=== PATIENT | male | born 1945 | race Caucasian/White ===

== ENCOUNTER 2017-05-23 13:00 | Inpatient (IN) ==
[2017-05-23] MEDS ORDERED: ALBUTEROL/IPRATROPIUM 3 ML NEB RESP TX STA (13:22)
[2017-05-23] MEDS ORDERED: methylPREDNISolone SOD SUC 125 MG/2 ML VIAL IV STA (13:22)
[2017-05-23] MEDS ORDERED: FUROSEMIDE 100 MG/10 ML VIAL IV STA (13:22)
--- NOTE | 2017-05-23 13:27 | EKG Report ---
Stationary ECG Study [facility] ER Test Date: 05/23/2017 1:20:06 PM Pat Name: JENN KEITH Department: Room: Gender: M Complaint Operator: : 1945 Requested by: Baltazar Cooper Order Number: [id number] Reading MD: JANETTE ESTRADA Intervals Clifford Rate: 101 P: 83 AL: 226 QRS: -59 QRSD: 102 T: 69 QT: 335 QTc: 393 Interpretive Statements SINUS TACHYCARDIA WITH PROLONGED AL INTERVAL WITH FREQUENT VENTRICULAR PREMATURE COMPLEXES WITH OCCASIONAL SUPRAVENTRICULAR PRE MARKED LEFT AXIS DEVIATION INCOMPLETE RIGHT BUNDLE BRANCH BLOCK POSSIBLE ANTERIOR MYOCARDIAL INFARCTION, PROBABLY OLD Electronically Signed On 05-24-17 09:03:24 CDT by JANETTE ESTRADA [email or web address]
--- NOTE | 2017-05-23 13:39 | Emergency Department Note ---
Arrival - Arrival Chief Complaint: Shortness of Breath Stated Complaint: sob,dizzy,cp ED Nursing Triage Note: C/O Having SOB that got worse around 0730 this am , states he recently got out of the hospital last week for heart issues/lung issues. Had stent placement in December 31., states he has been having sqeezing chest pain that started today,+ dizziness to the point that he can stand up., Mode of Arrival: Wheelchair Limitations: No Limitations Source: Patient, Family Time Seen by Provider: 05/23/17 13:33 - History of Present Illness HPI Narrative: This 72-year-old white male oxygen dependent gentleman presents 24 hours post discharge from [facility] in [facility] where he had been hospitalized the last 2 weeks for what the family describes as combined cardiac and pulmonary problems. It would seem that his physicians there were in a quest to determine what was causing his progressive shortness of breath. He does have a history of significant COPD with complicating bronchiectasis and oxygen dependency as well as a history of UT and congestive heart failure. Since discharge, the states he has been no better than the day he went in with persistent dyspnea on exertion associated with intermittent squeezing type chest pain. Notable new problems are what seems to be orthostatic hypotension which causes him dizziness when ever he gets up as well as wide variations in heart rate which she states have been anywhere from 42 to 100 this morning. Currently the patient on oxygen and at rest has no complaints of chest pain or shortness of breath and appears medically stable. Onset (ago): week(s) (Patient presents several weeks post progression of symptoms.) Allergies/Adverse Reactions: Allergies Allergy/AdvReac Type Severity Reaction Status Date / Time No Known Allergies Allergy Unverified 05/23/17 13:09 Home Medications: Home Medications Medication Instructions Recorded Confirmed Type Albuterol/Ipratropium Neb [Duoneb] 3 ml RESP TX RT BID 05/23/17 05/23/17 History Apixaban [Eliquis] 2.5 mg PO BID 05/23/17 05/23/17 History Atorvastatin [Lipitor] 40 mg PO BEDTIME 05/23/17 05/23/17 History Clopidogrel [Plavix] 75 mg PO QAM 05/23/17 05/23/17 History Diltiazem Cd Cap [Cardizem CD] 120 mg PO BID 05/23/17 05/23/17 History Escitalopram [Lexapro] 20 mg PO DAILY 05/23/17 05/23/17 History Fluticasone/Vilanterol [Breo 1 puff INH QAM 05/23/17 05/23/17 History Ellipta 100-25 Mcg INH] Furosemide Tab [Lasix Tab] 20 mg PO BID DIURETIC 05/23/17 05/23/17 History Insulin Aspart [NovoLOG] 14 unit SUBCUT AC 05/23/17 05/23/17 History Insulin Detemir [Levemir] 34 unit SUBCUT QAM 05/23/17 05/23/17 History Losartan [Cozaar] 12.5 mg PO QAM 05/23/17 05/23/17 History Potassium Chloride Cap/Tab [K Dur] 10 meq PO QAM 05/23/17 05/23/17 History predniSONE TAB [PredniSONE] 30 mg PO QAM 05/23/17 05/23/17 History Review of System - Review of System 12 point system: reviewed and no additional remarkable complaints except as stated - Review of System Constitutional: Present: as per HPI Respiratory: Present: as per HPI Cardiovascular: Present: as per HPI Neurological: Present: as per HPI Medical,Surgical,& Family Hx - Medical History Cardio: History of: CHF, Hypertension, UT, Cardiovascular Problems - Surgical History Cardiac Surgeries: Sugical HX of: Cardiac Catheterization - Social History Smoking Status: Never smoker Frequency of Alcohol Use: None Type of Drug Use: None Exam Physical Examination: GENERAL: Well developed, well nourished elderly white in no acute distress. HEENT: Normocephalic. No trauma. Moist mucous membranes. EOMI. PERRLA. ENT NML NECK: Supple. No adenopathy. CARDIAC: Regular. No murmurs. Heart rate 100 CHEST: Clear to auscultation. No respiratory distress. O2 sat 95% ABDOMEN: Soft. Nontender. Active bowel sounds. EXTREMITIES: No trauma. Normal ROM. No pedal edema. SKIN: No diaphoresis. No rash. NEURO: Alert. Neuro intact no focal deficits. Vital Signs: Vital Signs Temperature 98.8 F 05/23/17 13:36 Pulse Rate 70 05/23/17 13:46 Respiratory Rate 25 H 05/23/17 13:46 Blood Pressure 132/93 05/23/17 13:46 O2 Sat by Pulse Oximetry 100 05/23/17 13:46 Course - Reevaluation(s) Reevaluation #1: Discussed with family the need for hospitalization with multiple issues including new onset pneumonia - Consultations Consultation #1: Discussed with hospitalist service will admit for further evaluation treatment. Results - Labs CBC & BMP: 05/23/17 13:31 05/23/17 13:31 Labs: I reviewed the laboratory noted the abnormalities including a troponin of 0.065 , BUN 66, creatinine 1.5. - Impressions EKG sinus tachycardia at 100 with prolonged NJ interval and incomplete right bundle branch block with occasional multifocal PVCs. Old anterior UT versus poor R-wave progression anteriorly. Nonspecific ST changes with no acute injury pattern noted. - Diagnostic Findings Procedure: Chest x-ray: image reviewed by me, report reviewed by me (Left lower lobe infiltrate/effusion) Disposition Clinical Impression: Left lower lobe pneumonia, Congestive heart failure, Abnormal cardiac enzymes, Bronchiectasis, COPD O2 dependent, Coronary artery disease Case discussed with: patient, patient's family Disposition: Still a Patient Condition: Guarded Time of Disposition: 14:27
[2017-05-23 13:41] LABS: Basophils # 0.1 10*3/uL (0.0-0.2); Basophils % 0.5 % (0.0-0.8); Eosinophils % 0.1 % (0.00-10.9); Hematocrit 42.6 VOL% (42.0-52.0); Hemoglobin 14.4 GM/DL (14.0-18.0); Immature Granulocytes % 12.6 %; Immature Granulocytes Absolute 1.42 #; Lymphocytes # 0.9 10*3/uL (1.4-4.0); Lymphocytes % 8.1 % (21.2-54.2); Mean Corpuscular HGB Conc 33.8 GM/DL (32-36); Mean Corpuscular Hemoglobin 31 PG (27-34); Mean Corpuscular Volume 90.6 FL (87-102); Monocytes % 8.9 % (1.7-12.7); NRBC # 0.12 10*3/uL; Neutrophils # 7.9 10*3/uL (1.4-7.4); Neutrophils % 69.8 % (38.7-73.9); Platelet Count 121 T/CUMM (130-400); Red Cell Distribution Width 17.2 % (9.3-17.3); White Blood Count 11.3 T/CUMM (4-12)
[2017-05-23 14:07] LABS: Alanine Aminotransferase 63 U/L (16-61); Albumin 3.6 G/DL (3.4-5.0); Alkaline Phosphatase 145 U/L (45-117); Aspartate Amino Transferase 40 U/L (0-37); Blood Urea Nitrogen 66 MG/DL (7-18); Calcium 8.9 MG/DL (8.5-10.1); Glucose 217 MG/DL (74-106); Osmolality,Calculated 304.4 MOS/KG (273-304); Potassium 3.8 MMOL/L (3.5-5.1); Sodium 140 MMOL/L (136-145); Total Protein 6.6 G/DL (6.4-8.3)
[2017-05-23 14:08] LABS: Troponin I Only 0.065 NG/ML (0.00-0.045)
--- NOTE | 2017-05-23 14:10 | XRay Report ---
History: Shortness of breath Date: 05/23/2017 Study: Chest x-ray AP portable Comparison exam: October 18, 2014 There is continued cardiomegaly. The midsternal contours are similar. There is some atelectatic change on the left with slight shift of the mediastinum to the left. There is some left basilar infiltrate compatible with pneumonia. There is mild platelike subsegmental atelectasis in the right lung base. Osseous structures are unchanged. Impression: Parenchymal consolidation in the left lung base which presumably represents pneumonia. Volume loss in the left lung. Radiographic follow-up to resolution is advised. PROCEDURE INTERPRETED AT [facility] DEPARTMENT OF RADIOLOGY Final Report Signed by: Dr. Pamela León
[2017-05-23] MEDS ORDERED: LEVOFLOXACIN INJ 750 MG in PREMIX 1 EACH IV STA (14:19)
[2017-05-23] MEDS ORDERED: LEVOFLOXACIN INJ 150 ML IV ONE (14:23)
[2017-05-23] MEDS ORDERED: FUROSEMIDE 100 MG/10 ML VIAL ONE (14:24)
[2017-05-23] MEDS ORDERED: methylPREDNISolone SOD SUC 125 MG/2 ML VIAL ONE (14:24)
[2017-05-23] MEDS ORDERED: MORPHINE 2 MG/1 ML SYRINGE IV PRN (15:08)
[2017-05-23] MEDS ORDERED: ONDANSETRON 4 MG/2 ML VIAL IV PRN (15:08)
[2017-05-23] MEDS ORDERED: ACETAMINOPHEN 325 MG TABLET PO PRN ×2 (15:08)
[2017-05-23] MEDS ORDERED: diphenhydrAMINE CAP 25 MG CAPSULE PO PRN (15:08)
[2017-05-23] MEDS ORDERED: guaiFENesin/DM ER 600-30 MG TABLET PO PRN (15:08)
[2017-05-23] MEDS ORDERED: DOCUSATE SODIUM 100 MG CAPSULE PO PRN (15:08)
[2017-05-23] MEDS ORDERED: BENZONATATE 100 MG CAPSULE PO PRN (15:17)
[2017-05-23] MEDS ORDERED: ALBUTEROL 2.5 MG/3 ML NEB RESP TX PRN (15:17)
[2017-05-23] MEDS ORDERED: DEXTROSE 50% 25 GM/50 ML SYRINGE IV PRN (15:24)
[2017-05-23] MEDS ORDERED: GLUCAGON 1 MG VIAL IM PRN (15:24)
--- NOTE | 2017-05-23 15:32 | Hospitalist History & Physical ---
Assessment and Plan - Time spent with patient Time spent with patient: Greater than 30 minutes (1) Steroid-induced diabetes mellitus Status: Acute Assessment and plan: Mr. Davison is a pleasant 72-year-old white male with history of CAD status post stents, A. fib on anticoagulation, hypertension, steroid-induced diabetes, hyperlipidemia, history of BOOP, history of recent pneumonia presenting to the ED with progressive shortness of breath and squeezing type substernal chest pain. Dr. Hernandez we will see and examine patient and further recommendations to follow. Chest pain/shortness of breath/elevated troponin--patient will be admitted on telemetry with serial EKGs and troponins. His troponins are elevated so these will be trended. Consult cardiology for evaluation. Patient had stents placed in December in [place]. Patient is on Eliquis and Plavix. Patient also has labile blood pressure and heart rate associated with his squeezing chest pain. Patient is being left n.p.o. until evaluated by cardiology. Left lower lobe pneumonia/shortness of breath--patient has known history of BOOP with frequent lung infections and on chronic steroids. His home dose is 30 mg p.o. daily. Patient has been started on Rocephin and azithromycin. Consult pulmonary for assistance. Patient was given 125 mg IV of methylprednisolone in the ED. He will also receive breathing treatments as well. Jaundice--patient is complaining of yellow eyes for the last week and dark urine. His LFTs are mildly elevated with a normal T bili. Will hold Lipitor for now. Will discuss with Dr. Hernandez if GI consult is needed. Steroid-induced diabetes--patient was on metformin and insulin at home. We will hold these for now and put on sliding scale insulin. Chronic anticoagulation--patient is on Eliquis and Plavix for A. fib and CAD. We will hold these for now and leave up to cardiology if they need to be restarted. Orthostatic hypotension--patient states he has been getting dizzy and lightheaded when he moves from lying to sitting and standing. Will check orthostatics twice daily. He was given a bolus in the ED of fluid and will continue maintenance fluids. Current Visit: Yes (2) Chest pain Status: Acute Current Visit: Yes (3) Shortness of breath on exertion Status: Acute Current Visit: Yes (4) CAD status post stents Status: Acute Current Visit: Yes (5) Hypertension Status: Acute Current Visit: Yes (6) A-fib Status: Acute Current Visit: Yes (7) Chronic anticoagulation Status: Acute Current Visit: Yes (8) Jaundice Status: Acute Current Visit: Yes (9) Orthostatic hypotension Status: Acute Current Visit: Yes (10) Elevated troponin Status: Acute Current Visit: Yes History of Present Illness Chief complaint: Chest tightness, shortness of breath History of present illness: Mr. Davison is a 72 year old white male with history of BOOP, A. fib on Eliquis and Plavix, CAD status post stents in December, steroid-induced diabetes, hyperlipidemia, congestive heart failure, and recent pneumonia presenting to the ED with 1 month progressive shortness of breath and chest tightness. Patient states he was diagnosed with BOOP approximately 2 years ago and has been on chronic steroids since then and gets chronic lung infections. He states he has had several bouts of pneumonia with the last one being hospitalized in February and March down in [place]. Patient and both state that the chief wheelage clerk blamed the lungs and the head of business development blamed the heart. They were discharged home and patient was doing well until steroids were being tapered. He states for the last month he has had a squeezing type substernal chest pain with increasing shortness of breath with activity. He states his heart rate has been going up and down between 40 and 120. Patient states he feels the squeezing chest pain when it is on the low side. Patient states with minimal activity his O2 sats will drop in the 80s and he will become severely short of breath. He says after he sits and rests for a while it does return to normal. He is also complaining of increasing fatigue, dark urine, and yellow eyes. Upon exam patient is flushed and has conversational dyspnea, labile heart rate and blood pressure. His CBC is unremarkable, creatinine elevated at 1.5, blood sugars 217, AST/ALT mildly elevated with normal bilirubin, elevated alkaline phosphatase at 145. Patient's CK-MB is elevated at 4.9 with troponin 0 0.065. BNP mildly elevated at 177. Patient's chest x-ray shows consolidation in the left lung base representing pneumonia. He does have crackles to auscultation in left lower lobe. His EKG shows sinus tachycardia with prolonged UT interval with frequent ventricular premature complexes occasional supraventricular premature complexes, marked left axis deviation, incomplete right bundle branch block, possible anterior OK probably old. After discussion with Dr. Funes the ED physician and Dr. Hernandez the admitting hospitalist, it was agreed patient be admitted for further evaluation and treatment. Patient's medicines have been reconciled and he is a full code. Home Medications Medication Instructions Recorded Confirmed Type Albuterol/Ipratropium Neb [Duoneb] 3 ml RESP TX RT BID 05/23/17 05/23/17 History Apixaban [Eliquis] 2.5 mg PO BID 05/23/17 05/23/17 History Atorvastatin [Lipitor] 40 mg PO BEDTIME 05/23/17 05/23/17 History Clopidogrel [Plavix] 75 mg PO QAM 05/23/17 05/23/17 History Diltiazem Cd Cap [Cardizem CD] 120 mg PO BID 05/23/17 05/23/17 History Escitalopram [Lexapro] 20 mg PO DAILY 05/23/17 05/23/17 History Fluticasone/Vilanterol [Breo 1 puff INH QAM 05/23/17 05/23/17 History Ellipta 100-25 Mcg INH] Furosemide Tab [Lasix Tab] 20 mg PO BID DIURETIC 05/23/17 05/23/17 History Insulin Aspart [NovoLOG] 14 unit SUBCUT AC 05/23/17 05/23/17 History Insulin Detemir [Levemir] 34 unit SUBCUT QAM 05/23/17 05/23/17 History Losartan [Cozaar] 12.5 mg PO QAM 05/23/17 05/23/17 History Potassium Chloride Cap/Tab [K Dur] 10 meq PO QAM 05/23/17 05/23/17 History predniSONE TAB [PredniSONE] 30 mg PO QAM 05/23/17 05/23/17 History Allergies Allergy/AdvReac Type Severity Reaction Status Date / Time No Known Allergies Allergy Unverified 05/23/17 13:09 Medical,Surgical,& Family Hx - Medical History Cardio: History of: CHF, Hypertension, OK, Cardiovascular Problems Endocrine: History of: Diabetes Mellitus (NIDDM) Musculoskeletal: History of: Degenerative Disk Disease - Surgical History Cardiac Surgeries: Sugical HX of: Cardiac Catheterization Orthopedic Surgeries: Surgical HX of;: Orthopedic Surgery - Family History Family History: Reports;: Family Heart Disease - Social History Smoking Status: Never smoker Frequency of Alcohol Use: None Type of Drug Use: None Marital Status: Lives With:: Spouse Functional capacity: independent ambulation 12 point system: reviewed and no additional remarkable complaints except as stated Exam - Constitutional Vitals: Period Temp Pulse Resp BP Sys/Hudd[place]eston Pulse Ox Last 24 Hr 98.8 F-98.8 F 70-71 18-25 122-132/82-93 92-100 Exam: Constitutional System: No distress. No tremulousness. Head: Normocephalic, atraumatic. Flushed appearance Ears, Nose and Throat System: No evidence of Otitis or Mastoiditis. No epistaxis or discharge Eyes System: Pupils equal, round, and reactive. Extraocular muscles intact. Neck: Supple, without adenopathy, No jugular venous distention. No thyromegaly, neck mass, or prior surgery apparent. Respiratory System: Chest crackles in the left lung base to auscultation. Cardiovascular System: Heart with irregularly irregular rate and rhythm. No murmur. GI System: Abdomen soft, nontender. Normo active bowel sounds present. Musculoskeletal System: limbs with no pedal edema. Full distal pulses. Neurological System: No discernable sensory deficit. No aphasia Psychiatric System: Conversation is rational Results - Labs CBC & BMP: 05/23/17 13:31 05/23/17 13:31 Lab Results: I have reviewed the past 24 hour labs - Impressions EKG is reading sinus tachycardia with prolonged UT interval with frequent ventricular premature complexes with occasional supraventricular premature complexes, marked left axis deviation, incomplete right bundle joanie block, possible anterior OK probably old Quality Measures - VTE Contraindication to Pharmacological VTE Prophylaxis: Already on Theraputic Agent , No Prophylaxis Needed
[2017-05-23] MEDS ORDERED: MAGNESIUM SULF RIDER 2 GM in PREMIX 1 EACH IV PRN (15:37)
[2017-05-23] MEDS ORDERED: POTASSIUM CHLORIDE 20 MEQ TABLET PO PRN (15:37)
[2017-05-23 15:43] LABS: Risk Ratio 1.47; Thyroid Stimulating Hormone 1.27 uIU/ml (0.358-3.74)
--- NOTE | 2017-05-23 16:32 | Cardiology Consult Note ---
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 Current Visit: Yes (3) CAD status post stents Problem details: Xience 3x38mm proximal LAD 12/31/2016 [place] Status: Chronic Current Visit: Yes (4) Elevated troponin Status: Acute Current Visit: Yes (5) A-fib Status: Chronic Current Visit: Yes Qualifiers: Atrial fibrillation type: paroxysmal Qualified Code(s): I48.0 - Paroxysmal atrial fibrillation (6) Chronic anticoagulation Status: Chronic Current Visit: Yes (7) PVC (premature ventricular contraction) Status: Acute Current Visit: Yes (8) PAC (premature atrial contraction) Status: Acute Current Visit: Yes (9) Steroid-induced diabetes mellitus Status: Chronic Current Visit: Yes History of Present Illness - Data of Consult Patient: new to practice Consult date: 05/23/17 Requesting Physician: Jessica Day - Consult Narrative Reason for consult: sob History of present illness: The patient is evaluated in the emergency room 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 Davison is a 72 year old male with a history of Boop and bronchiectasis, coronary artery disease, atrial fibrillation, steroid-induced diabetes mellitus. He presents to the emergency room for treatment of his shortness of breath. He was diagnosed with beep approximately 2 years ago and there has been some difficulty weaning his steroids. He has had frequent recurrence of flareups when his steroids are weaned. He does not chronically use oxygen. From a cardiac standpoint, he underwent PCI to his proximal LAD with placement of a Xience 3 x 38 mm stent, and the tells me this was complicated by intraoperative infarction with "stent collapsing" and subsequent salvage. He has been maintained on Plavix and Eliquis for his coronary disease and atrial fibrillation. More recently he was hospitalized several times for what sounds like pneumonia and flareup of his BOOP. He has been on a very slow taper of his prednisone at this point. He has had worsening dyspnea on exertion for the past 1-2 weeks. Things progressed such that even walking across the house he became hypoxic with sats in the 80s, although this recovered when he was still. It became so disabling that he came to the emergency room for further evaluation and treatment. He does have a mild cough that is occasionally productive but this does not appear to be a predominant symptom. He is not having chest pain per se. When he does retain fluid it tends to be intra-abdominal, but this has not been a recent problem for him. Blood sugars have been uncontrolled, and the 5- 600s. He occasionally gets transient vision changes with this described as blurry vision. He has been less active than usual. He denies any complications from the anticoagulant and antiplatelet therapy other than easy bruising and bleeding. He denies any melena, bright red blood per rectum. He has occasional arthralgias. Impression and plan: 1. Shortness of breath-this appears to be poly-factorial. Undoubtedly his underlying pulmonary condition is contributing, and this could represent progression of his disease. On exam and by laboratory data he does not appear to be volume overloaded. While an anginal equivalent could be contributing to symptoms of shortness of breath, it should not be giving him hypoxia per se. 2. BOOP-chronic, possibly exacerbated. Defer to hospitalist and pulmonary medicine. 3. Coronary artery disease-he does not have obvious acute changes on his EKG. Certainly the dyspnea could be an anginal equivalent. He has mildly abnormal cardiac biomarkers. It is difficult to know whether or not this is really an acute coronary syndrome as it can be near impossible to tease out the symptoms between pulmonary and cardiac pathology. We are going to cycle his cardiac biomarkers and to check an echocardiogram. Further plan a decision will depend on his clinical evolution and the pattern of his troponins. 4. Atrial fibrillation-presumably this is paroxysmal because he is currently in sinus rhythm with frequent PACs and PVCs. He is anticoagulated and rate controlled. CC: Jeramie Hernandez MD - Home Medications and Allergies Home Medications: Home Medications Medication Instructions Recorded Confirmed Type Albuterol/Ipratropium Neb [Duoneb] 3 ml RESP TX RT BID 05/23/17 05/23/17 History Apixaban [Eliquis] 2.5 mg PO BID 05/23/17 05/23/17 History Atorvastatin [Lipitor] 40 mg PO BEDTIME 05/23/17 05/23/17 History Clopidogrel [Plavix] 75 mg PO QAM 05/23/17 05/23/17 History Diltiazem Cd Cap [Cardizem CD] 120 mg PO BID 05/23/17 05/23/17 History Escitalopram [Lexapro] 20 mg PO DAILY 05/23/17 05/23/17 History Fluticasone/Vilanterol [Breo 1 puff INH QAM 05/23/17 05/23/17 History Ellipta 100-25 Mcg INH] Furosemide Tab [Lasix Tab] 20 mg PO BID DIURETIC 05/23/17 05/23/17 History Insulin Aspart [NovoLOG] 14 unit SUBCUT AC 05/23/17 05/23/17 History Insulin Detemir [Levemir] 34 unit SUBCUT QAM 05/23/17 05/23/17 History Losartan [Cozaar] 12.5 mg PO QAM 05/23/17 05/23/17 History Potassium Chloride Cap/Tab [K Dur] 10 meq PO QAM 05/23/17 05/23/17 History predniSONE TAB [PredniSONE] 30 mg PO QAM 05/23/17 05/23/17 History Allergies/Adverse Reactions: Allergies Allergy/AdvReac Type Severity Reaction Status Date / Time No Known Allergies Allergy Unverified 05/23/17 13:09 12 point system: reviewed and no additional remarkable complaints except as stated Medical,Surgical,& Family Hx - Medical History Cardio: History of: CHF, Hypertension, [place], Cardiovascular Problems Endocrine: History of: Diabetes Mellitus (NIDDM) Musculoskeletal: History of: Degenerative Disk Disease - Surgical History Cardiac Surgeries: Sugical HX of: Cardiac Catheterization Orthopedic Surgeries: Surgical HX of;: Orthopedic Surgery - Family History Family History: Reports;: Family Heart Disease - Social History Smoking Status: Never smoker Frequency of Alcohol Use: None Type of Drug Use: None Marital Status: Lives With:: Spouse Functional capacity: independent ambulation Physical Examination Vital Signs Temp Pulse Resp BP Pulse Ox 98.8 F 71 18 122/82 92 L 05/23/17 13:04 05/23/17 13:04 05/23/17 13:04 05/23/17 13:04 05/23/17 13:04 Exam: General appearance: normal weight, mild tachypnea but no acute distress - Head Head exam: Present: normal inspection, normocephalic, atraumatic. Absent: hematoma, laceration - Eye Eye exam: Present: EOMI, muddy sclera, arcus senilis. Absent: conjunctival injection, nystagmus, periorbital swelling, laceration to eyelids Pupils: Present: PERRL. Absent: constricted, dilated, fixed, irregular, unequal - ENT ENT exam: Present: normal exam, normal external ear exam - Neck Neck exam: Present: normal inspection. Absent: lymphadenopathy, meningismus, tenderness, thyromegaly - Respiratory Respiratory exam: Present: Fine crackles bilaterally left greater than right. Absent: accessory muscle use, chest wall tenderness - Cardiovascular Cardiovascular exam: Present: Somewhat irregularly irregular rate and rhythm. Absent: carotid bruit, gallop, JVD, rubs - GI/Abdominal GI/Abdominal exam: Present: normal bowel sounds, soft. Absent: distended, firm , guarding, hernia, mass, tenderness, rebound. - Extremities Exam Extremities exam: Present: normal inspection, normal capillary refill. Absent: calf tenderness, edema - Back Exam Back exam: Present: normal inspection. Absent: muscle spasm, vertebral tenderness - Neurological Exam Neurological exam: Present: alert, oriented X3, grossly intact without resting or intention tremor - Psychiatric Psychiatric exam: Present: normal affect, normal mood - Skin Skin exam: Present: Ecchymoses throughout his limbs, neck and torso. warm, dry , intact. Absent: cyanosis, diaphoretic, rash, urticaria Result/EKG - Labs CBC & BMP: 05/23/17 13:31 05/23/17 13:31 Lab Results: I have reviewed the past 24 hour labs Labs: Laboratory Results - last 24 hr 05/23/17 05/23/17 05/23/17 13:31 13:31 13:31 WBC 11.3 RBC 4.70 Hgb 14.4 Hct 42.6 MCV 90.6 MCH 31 MCHC 33.8 RDW 17.2 Plt Count 121 L MPV 10.0 Neut % (Auto) 69.8 Lymph % (Auto) 8.1 L Smyth % (Auto) 8.9 Eos % (Auto) 0.1 Baso % (Auto) 0.5 Neut # (Auto) 7.9 H Lymph # (Auto) 0.9 L Smyth # (Auto) 1.0 H Eos # (Auto) 0.0 Baso # (Auto) 0.1 Immature Gran % 12.6 Nucleated RBC % 1.1 Immature Gran # 1.42 Nucleated RBCs # 0.12 Immature Plt Fraction 0.0 Circ Anticoag PTT 25.7 Sodium 140 Potassium 3.8 Chloride 104 Carbon Dioxide 29 Anion Gap 10.8 BUN 66 H Creatinine 1.50 H GFR Calculation 49 BUN/Creatinine Ratio 44.00 H Glucose 217 H Hemoglobin A1c Calculated Osmolality 304.4 H Lactic Acid Calcium 8.9 Total Bilirubin 0.90 AST 40 H ALT 63 H Alkaline Phosphatase 145 H Total Creatine Kinase 58 CK-MB (CK-2) 4.9 H Troponin I 0.065 H B-Natriuretic Peptide Total Protein 6.6 Albumin 3.6 Globulin 3.0 Albumin/Globulin Ratio 1.2 Triglycerides Cholesterol LDL Cholesterol VLDL Cholesterol HDL Cholesterol Heart Disease Risk Ratio [facility] 3rd Generation 05/23/17 05/23/17 05/23/17 13:31 13:31 13:31 WBC RBC Hgb Hct MCV MCH MCHC RDW Plt Count MPV Neut % (Auto) Lymph % (Auto) Smyth % (Auto) Eos % (Auto) Baso % (Auto) Neut # (Auto) Lymph # (Auto) Smyth # (Auto) Eos # (Auto) Baso # (Auto) Immature Gran % Nucleated RBC % Immature Gran # Nucleated RBCs # Immature Plt Fraction Circ Anticoag PTT Sodium Potassium Chloride Carbon Dioxide Anion Gap BUN Creatinine GFR Calculation BUN/Creatinine Ratio Glucose Hemoglobin A1c 7.8 H Calculated Osmolality Lactic Acid 1.9 Calcium Total Bilirubin AST ALT Alkaline Phosphatase Total Creatine Kinase CK-MB (CK-2) Troponin I B-Natriuretic Peptide 177 H Total Protein Albumin Globulin Albumin/Globulin Ratio Triglycerides Cholesterol LDL Cholesterol VLDL Cholesterol HDL Cholesterol Heart Disease Risk Ratio [facility] 3rd Generation 05/23/17 13:31 WBC RBC Hgb Hct MCV MCH MCHC RDW Plt Count MPV Neut % (Auto) Lymph % (Auto) Smyth % (Auto) Eos % (Auto) Baso % (Auto) Neut # (Auto) Lymph # (Auto) Smyth # (Auto) Eos # (Auto) Baso # (Auto) Immature Gran % Nucleated RBC % Immature Gran # Nucleated RBCs # Immature Plt Fraction Circ Anticoag PTT Sodium Potassium Chloride Carbon Dioxide Anion Gap BUN Creatinine GFR Calculation BUN/Creatinine Ratio Glucose Hemoglobin A1c Calculated Osmolality Lactic Acid Calcium Total Bilirubin AST ALT Alkaline Phosphatase Total Creatine Kinase CK-MB (CK-2) Troponin I B-Natriuretic Peptide Total Protein Albumin Globulin Albumin/Globulin Ratio Triglycerides 215 H Cholesterol 115 LDL Cholesterol 23.0 VLDL Cholesterol 43.0 HDL Cholesterol 78 H Heart Disease Risk Ratio 1.47 [facility] 3rd Generation 1.270 - Diagnostic Findings Procedure: Chest x-ray: report reviewed by me - EKG EKG results: interpreted by me, sinus rhythm (PAC, PVC, poor R-wave progression anteriorly) Quality Measures - VTE Contraindication to Pharmacological VTE Prophylaxis: Already on Theraputic Agent , No Prophylaxis Needed
[2017-05-23 17:04] LABS: Apearance,Urine CLEAR (Clear); Bilirubin,Urine Negative (Negative); Blood, Urine Negative (Negative); Glucose,Urine (UA) 50 mg/dL (Negative); Hyaline Casts,Urine 4 /LPF (0-3); Ketones,Urine Negative (Negative); Mucus,Urine Occasional /LPF (Occasional); Nitrite,Urine Negative (Negative); Protein,Urine Negative; RBC,Urine 1 /HPF (0-4); Urine Color Yellow (Yellow); Urine Specific Gravity 1.008 (1.001-1.035); Urine Urobilinogen < 2.0 EU/DL (0.2-1.0); WBC,Urine 2 /HPF (0-6)
[2017-05-23 17:22] LABS: Barbiturates Screen,Urine Negative (Negative); Benzodiazepines Screen,Urine Negative (Negative); Cannabinoid Screen,Urine Negative (Negative); Opiate Screen,Urine Negative (Negative); Phencyclidine Screen,Urine Negative (Negative)
[2017-05-23 17:31] LABS: Band Neutrophils 1 % (0-10); Lymphocytes 12 % (20-55); Nucleated Red Blood Cells 2 (0-5); Segmented Neutrophils 82 % (50-85); Total Cells Counted 100
[2017-05-23 17:32] LABS: Anisocytosis Slight; Ovalocytes Slight; Platelet Estimate Adequate; Poikilocytosis Slight; Polychromasia Slight
[2017-05-23] MEDS: PANTOPRAZOLE 40 MG TABLET PO SCH (17:55)
[2017-05-23 18:01] LABS: Troponin I Only 0.052 NG/ML (0.00-0.045)
[2017-05-23] MEDS: SODIUM CHLORIDE 0.9% 1,000 ML IV SCH (18:11)
[2017-05-23] MEDS: FUROSEMIDE 20 MG TABLET PO SCH (18:17)
[2017-05-23] MEDS: ESCITALOPRAM 10 MG TABLET PO SCH (18:18)
--- NOTE | 2017-05-23 18:21 | EKG Report ---
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
[2017-05-23] MEDS: cefTRIAXone 1,000 MG in SODIUM CHLORIDE 0.9% 100 ML IV SCH (18:23)
[2017-05-23] MEDS: INSULIN LISPRO 100 UNIT/ML SUBCUT SCH (18:27)
[2017-05-23] MEDS: ALBUTEROL/IPRATROPIUM 3 ML NEB RESP TX SCH (20:28)
[2017-05-23] MEDS: AZITHROMYCIN INJ 500 MG in SODIUM CHLORIDE 0.9% 250 ML IV SCH (20:51)
[2017-05-23] MEDS: APIXABAN 2.5 MG TABLET PO SCH (20:52)
[2017-05-23] MEDS: DILTIAZEM CD 120 MG CAPSULE PO SCH (20:52)
--- NOTE | 2017-05-23 20:53 | Ultrasound Report ---
Exam:US carotid duplex BI Date:05/23/2017 5:56 PM Indication: Dizziness Color Doppler, wave form analysis, and grayscale analysis of the cervical carotid arteries was performed. There is no significant plaque in either carotid bulb. Waveform analysis shows proper directional flow of the cervical carotid arteries. There is antegrade flow in either vertebral artery. There is no abnormal increased peak systolic velocity within the common or internal carotid arteries. Impression: There is 0-15% diameter reduction narrowing of either internal carotid artery using indirect NASCET criteria Right Side Flow velocities centimeters per second Common carotid artery:59.8 Proximal ICA:48.1 Distal ICA:78.1 External carotid artery:76.8 Vertebral artery:74.2 ICA/CCA ratio:1.3 Measurements in millimeters Distal ICA: 6.4 Left SIde Flow velocities centimeters per second Common carotid artery 87.2 Proximal ICA:70.7 Distal ICA:36.9 External carotid artery:124.1 Vertebral artery:41.6 ICA/CCA ratio:0.8 Measurements in millimeters Distal ICA: 8.8 Today studies were performed utilizing indirect NASCET criteria PROCEDURE INTERPRETED AT [facility] DEPARTMENT OF RADIOLOGY Final Report Signed by: Dr. Pamela León
[2017-05-23 23:24] LABS: Troponin I Only 0.047 NG/ML (0.00-0.045)
[2017-05-24] MEDS: ALBUTEROL/IPRATROPIUM 3 ML NEB RESP TX SCH ×4 (01:00→19:47)
[2017-05-24 04:36] LABS: Basophils % 0.8 % (0.0-0.8); Immature Granulocytes % 15.9 %; Immature Granulocytes Absolute 0.83 #; Lymphocytes # 0.3 10*3/uL (1.4-4.0); Lymphocytes % 6.5 % (21.2-54.2); Mean Corpuscular HGB Conc 33.9 GM/DL (32-36); Mean Corpuscular Hemoglobin 31 PG (27-34); Mean Corpuscular Volume 90.5 FL (87-102); Mean Platelet Volume 10.9 FL (9.6-12.0); Monocytes # 0.2 10*3/uL (0.11-0.8); Monocytes % 4.4 % (1.7-12.7); NRBC # 0.04 10*3/uL; Neutrophils # 3.8 10*3/uL (1.4-7.4); Neutrophils % 72.4 % (38.7-73.9); Red Blood Count 3.98 MC/CUMM (3.8-5.5); Red Cell Distribution Width 16.9 % (9.3-17.3)
[2017-05-24 05:02] LABS: Hemoglobin 12.2 GM/DL (14.0-18.0); Platelet Count 95 T/CUMM (130-400); White Blood Count 5.2 T/CUMM (4-12)
[2017-05-24 05:25] LABS: Band Neutrophils 7 % (0-10); Lymphocytes 10 % (20-55); Myelocytes 1 %; Segmented Neutrophils 79 % (50-85); Total Cells Counted 100
[2017-05-24 05:26] LABS: Hypochromasia 1+; Microcytosis 1+; Ovalocytes Slight; Troponin I Only 0.044 NG/ML (0.00-0.045)
[2017-05-24 05:27] LABS: Platelet Estimate Decreased; Polychromasia Slight
[2017-05-24 05:52] LABS: Albumin 3.2 G/DL (3.4-5.0); Bilirubin,Total 1.2 MG/DL (0.2-1.0); Calcium 8.5 MG/DL (8.5-10.1); Magnesium 2.3 MG/DL (1.8-2.4); Osmolality,Calculated 321.3 MOS/KG (273-304); Potassium 4.3 MMOL/L (3.5-5.1); Total Protein 5.7 G/DL (6.4-8.3)
[2017-05-24] MEDS ORDERED: DEXTROSE 50% 25 GM/50 ML SYRINGE IV PRN (06:47)
[2017-05-24] MEDS ORDERED: GLUCAGON 1 MG VIAL IM PRN (06:53)
[2017-05-24] MEDS ORDERED: DEXTROSE 50% 25 GM/50 ML VIAL IV PRN (06:53)
[2017-05-24] MEDS: INSULIN LISPRO 100 UNIT/ML SUBCUT SCH ×7 (08:00→21:37)
[2017-05-24] MEDS ORDERED: INSULIN GLARGINE 100 UNIT/ML SUBCUT SCH (09:00)
[2017-05-24] MEDS ORDERED: Fluticasone/Vilanterol [Breo Ellipta 100-25 Mcg Inh] 1 PUFF INH SCH (09:00)
--- NOTE | 2017-05-24 09:00 | EKG Report ---
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1945 Requested by: Jessica Day Order Number: [id number] Reading MD: JANETTE ESTRADA Intervals [place] Rate: 98 P: 95 MN: 217 QRS: -57 QRSD: 97 T: 79 QT: 342 QTc: 397 Interpretive Statements SINUS RHYTHM WITH PROLONGED MN INTERVAL WITH OCCASIONAL VENTRICULAR PREMATURE COMPLEXES WITH FREQUENT SUPRAVENTRICULAR PREMATUR INCOMPLETE RIGHT BUNDLE BRANCH BLOCK LEFT ANTERIOR FASCICULAR BLOCK POSSIBLE ANTERIOR MYOCARDIAL INFARCTION, PROBABLY OLD INTERPRETATION BASED ON A DEFAULT AGE OF 40 YEARS Electronically Signed On 05-24-17 09:06:12 CDT by JANETTE ESTRADA [email or web address]
[2017-05-24] MEDS: FUROSEMIDE 20 MG TABLET PO SCH ×2 (09:12→16:59)
[2017-05-24] MEDS: APIXABAN 2.5 MG TABLET PO SCH ×2 (09:13→21:30)
[2017-05-24] MEDS: DILTIAZEM CD 120 MG CAPSULE PO SCH (09:13)
[2017-05-24] MEDS: ESCITALOPRAM 10 MG TABLET PO SCH (09:14)
[2017-05-24] MEDS: predniSONE 10 MG TABLET PO SCH (09:14)
[2017-05-24] MEDS: PANTOPRAZOLE 40 MG TABLET PO SCH (09:14)
[2017-05-24] MEDS: LOSARTAN 25 MG TABLET PO SCH (09:15)
[2017-05-24] MEDS: POTASSIUM CHLORIDE 10 MEQ TABLET PO SCH (09:15)
--- NOTE | 2017-05-24 09:45 | Pulmonology Consult Note ---
Assessment and Plan (1) Steroid-induced diabetes mellitus Status: Chronic Assessment and plan: He has been started on insulin because of his steroid-induced diabetes. Current Visit: Yes (2) Shortness of breath on exertion Status: Acute Assessment and plan: Patient does not look short of breath now but he does have some chronic lung disease. It is unclear if this is any different than before. Current Visit: Yes (3) CAD status post stents Problem details: Xience 3x38mm proximal LAD 12/31/2016 in [place] Status: Chronic Assessment and plan: He has been evaluated by cardiology. Current Visit: Yes (4) Hypertension Status: Chronic Assessment and plan: His blood pressure apparently has been labile and some of the symptoms may be due to orthostasis. Current Visit: Yes (5) A-fib Status: Chronic Assessment and plan: He has been in a sinus rhythm with premature beats at present. 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 He looks like he may have scarring now and was told he had some bronchiectasis. He apparently has had a recent CT of his chest. We will continue his prednisone for now. Current Visit: Yes History of Present Illness Chief complaint: Shortness of breath History of present illness: Mr. Davison is a 72 year old white male that apparently has been followed by cardiology and pulmonary in [facility]. He apparently was in the hospital down there recently. He just went home and then came back to the hospital stating that he was having some palpitations and weakness and shortness of breath. He does have a history of coronary artery disease and atrial fibrillation. He apparently had a stent placed in December and apparently did have some complications. A couple years ago he was diagnosed with BOOP and has been on prednisone off and on since then. Recently he was told he probably had some bronchiectasis also. He says is not coughing up much sputum now and his shortness of breath is not bad at rest. He apparently does have home O2. He said he feels well at times and other times he gets very short of breath with any activity. He basically is a non-smoker. He did work in the [employer]. Home Medications Medication Instructions Recorded Confirmed Type Albuterol/Ipratropium Neb [Duoneb] 3 ml RESP TX RT BID 05/23/17 05/23/17 History Apixaban [Eliquis] 2.5 mg PO BID 05/23/17 05/23/17 History Atorvastatin [Lipitor] 40 mg PO BEDTIME 05/23/17 05/23/17 History Clopidogrel [Plavix] 75 mg PO QAM 05/23/17 05/23/17 History Diltiazem Cd Cap [Cardizem CD] 120 mg PO BID 05/23/17 05/23/17 History Escitalopram [Lexapro] 20 mg PO DAILY 05/23/17 05/23/17 History Fluticasone/Vilanterol [Breo 1 puff INH QAM 05/23/17 05/23/17 History Ellipta 100-25 Mcg INH] Furosemide Tab [Lasix Tab] 20 mg PO BID DIURETIC 05/23/17 05/23/17 History Insulin Aspart [NovoLOG] 14 unit SUBCUT AC 05/23/17 05/23/17 History Insulin Detemir [Levemir] 34 unit SUBCUT QAM 05/23/17 05/23/17 History Losartan [Cozaar] 12.5 mg PO QAM 05/23/17 05/23/17 History Potassium Chloride Cap/Tab [K Dur] 10 meq PO QAM 05/23/17 05/23/17 History predniSONE TAB [PredniSONE] 30 mg PO QAM 05/23/17 05/23/17 History Allergies Allergy/AdvReac Type Severity Reaction Status Date / Time No Known Allergies Allergy Unverified 05/23/17 13:09 - Constitutional Constitutional: Present: fatigue. Absent: chills, fever(s), weight gain - EENT Eyes: Absent: loss of vision Ears: Absent: decreased hearing Nose, mouth and throat: Absent: dysphagia, headache(s), sinus pressure - Cardiovascular Cardiovascular: Present: chest pain with activity, dyspnea on exertion, palpitations. Absent: chest pain at rest - Respiratory Respiratory: Present: cough. Absent: hemoptysis, wheezing, change in phlegm color - Gastrointestinal Gastrointestinal: Absent: abdominal pain, change in bowel habits, dysphagia, nausea, vomiting - Genitourinary Genitourinary: Absent: dysuria, hematuria, urinary frequency - Musculoskeletal Musculoskeletal: Absent: arthralgias, muscle weakness - Neurological Neurological: Absent: abnormal speech, focal weakness, paresthesias - Psychiatric Psychiatric: Present: anxiety Exam (Pulmonay) H&P - Constitutional Vitals: Period Temp Pulse Resp BP Sys/Huddleston Pulse Ox Last 24 Hr 96.4 F-98.8 F 70-111 14-25 111-138/68-99 92-100 General appearance: normal weight, no acute distress (He is reasonably comfortable at present) - Head Head exam: Present: normal inspection, normocephalic - Eye Eye exam: Present: EOMI. Absent: scleral icterus Pupils: Present: ELMA - ENT ENT exam: Present: normal exam - Neck Neck exam: Absent: lymphadenopathy, thyromegaly - Respiratory Respiratory exam: Present: rales, other (He has good breath sounds bilaterally and he does have some mild inspiratory crackles that are worse in the left base. I do not hear any signs of effusions or consolidation.). Absent: wheezes - Cardiovascular Cardiovascular exam: Present: irregular rhythm. Absent: gallop, systolic murmur - GI/Abdominal GI/Abdominal exam: Present: normal bowel sounds, soft. Absent: organomegaly, tenderness - Extremities Exam Extremities exam: Absent: calf tenderness, edema - Neurological Exam Neurological exam: Present: alert, oriented X3, CN II-XII intact. Absent: motor sensory deficit - Psychiatric Psychiatric exam: Present: normal affect - Skin Skin exam: Present: warm, dry Medical,Surgical,& Family Hx - Medical History Cardio: History of: CHF, Hypertension, [place], Cardiovascular Problems Neurology: History of: Seizures (2015, none since.) Endocrine: History of: Diabetes Mellitus (NIDDM) Respiratory: History of: Respiratory Problems (bronchiethisis) Musculoskeletal: History of: Degenerative Disk Disease - Surgical History Cardiac Surgeries: Sugical HX of: Cardiac Catheterization Neurologic Surgeries: Surgical HX of: Neurologic Surgery (benign mengioma in 2015. no seizures since procedure) Orthopedic Surgeries: Surgical HX of;: Orthopedic Surgery - Family History Family History: Reports;: Family Cancer (prostate cancer), Family Diabetes ( father), Family Heart Disease (mother and father), Family Hypertension (mother) - Social History Smoking Status: Never smoker Frequency of Alcohol Use: None Type of Drug Use: None Results - Labs CBC & BMP: 05/24/17 04:01 05/24/17 04:01 - Diagnostic Findings Procedure: Chest x-ray: image reviewed by me, report reviewed by me (Chest x- ray does show infiltrates and scarring in the left base worse than the right.) Quality Measures - VTE Contraindication to Pharmacological VTE Prophylaxis: Already on Theraputic Agent , No Prophylaxis Needed
--- NOTE | 2017-05-24 10:55 | XRay Report ---
History: Shortness of breath Date: 05/24/2017 Study: Chest x-ray PA and lateral Comparison exam: 05/23/2017 There is stable mild cardiomegaly. There is some volume loss in the left lung with slight shift of the mediastinum to the left. There is continued asymmetric hazy and ill-defined infiltrate in the left mid to lower lung, the same or slightly improved. There is mild platelike atelectasis in the right lung base. There is no obvious layering pleural effusion. Osseous structures are unchanged. There has been previous anterior cervical fusion procedure. Impression: Mildly improved left basilar atelectasis/infiltrate compared to the previous study. Some of these left basilar changes could be chronic in nature which have developed since the 2014 comparison chest x-ray. Otherwise unchanged PROCEDURE INTERPRETED AT [facility] DEPARTMENT OF RADIOLOGY Final Report Signed by: Dr. Pamela León
[2017-05-24] MEDS: SODIUM CHLORIDE 0.9% 1,000 ML IV SCH (11:09)
--- NOTE | 2017-05-24 13:43 | Hospitalist Progress Note ---
Assessment and Plan (1) Steroid-induced diabetes mellitus Status: Chronic Assessment and plan: The patient's hyperglycemia is worsened by Solu-Medrol that he received in the emergency room. The patient continues on prednisone 30 mg daily. I increased his long-acting insulin and we will continue with sliding scale. Current Visit: Yes (2) Shortness of breath on exertion Status: Acute Current Visit: Yes (3) A-fib Status: Chronic Assessment and plan: The patient has difficulty with paroxysmal atrial fibrillation. During these episodes he does have some angina. I coordinated care with Dr. Navarro today concerning the possibility of ablation. I discussed the patient's atrial arrhythmia with him and his . They are motivated to make some change which will allow him more exertional capacity. 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 Davison is a little bit stronger today. He has a little less swelling in the feet. Cardiac monitoring reveals sinus rhythm with runs of PSVT and intermittent atrial fibrillation. Exam - Constitutional Vitals: Period Temp Pulse Resp BP Sys/Huddleston Pulse Ox Last 24 Hr 96.4 F-98.2 F 70-111 14-25 111-140/68-99 95-100 General appearance: mild distress - Respiratory Respiratory exam: Present: prolonged expiratory phase. Absent: chest wall tenderness - Cardiovascular Cardiovascular exam: Present: irregular rhythm - GI/Abdominal GI/Abdominal exam: Present: normal bowel sounds - Psychiatric Psychiatric exam: Present: anxious Results - Labs CBC & BMP: 05/24/17 04:01 05/24/17 04:01 Lab Results: I have reviewed the past 24 hour labs Quality Measures - VTE Contraindication to Pharmacological VTE Prophylaxis: Already on Theraputic Agent , No Prophylaxis Needed
[2017-05-24] MEDS: INSULIN GLARGINE 100 UNIT/ML SUBCUT SCH (15:25)
[2017-05-24] MEDS: cefTRIAXone 1,000 MG in SODIUM CHLORIDE 0.9% 100 ML IV SCH (16:59)
--- NOTE | 2017-05-24 16:59 | Cardiology Progress Note ---
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 Current Visit: Yes (3) CAD status post stents Problem details: Xience 3x38mm proximal LAD 12/31/2016 in Mobile Status: Chronic Current Visit: Yes (4) Elevated troponin Status: Acute Current Visit: Yes (5) A-fib Status: Chronic Current Visit: Yes Qualifiers: Atrial fibrillation type: paroxysmal Qualified Code(s): I48.0 - Paroxysmal atrial fibrillation (6) Chronic anticoagulation Status: Chronic Current Visit: Yes (7) PVC (premature ventricular contraction) Status: Acute Current Visit: Yes (8) PAC (premature atrial contraction) Status: Acute Current Visit: Yes (9) Steroid-induced diabetes mellitus Status: Chronic Current Visit: Yes Cardiology - PN: Subj Interval history: [employer]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 Davison is a 72 year old male with a history of BOOP and bronchiectasis, coronary artery disease, atrial fibrillation, steroid-induced diabetes mellitus. He underwent PCI to his proximal LAD with placement of a Xience 3 x 38 mm stent, and the tells me this was complicated by intraoperative infarction with "stent collapsing" and subsequent salvage. He has been maintained on Plavix and Eliquis for his coronary disease and atrial fibrillation. He has been hospitalized several times for shortness of breath at his local hospital, and has been treated predominantly for his pulmonary condition. It has exacerbated whenever steroids are weaned. He was readmitted for shortness of breath. He is having paroxysms of atrial fibrillation with rapid ventricular response. May 24, 2017: He continues to have dyspnea and dizziness with mild exertion although overall he is feeling that he is breathing somewhat better. He continues to have a tightness across his chest that is somewhat constant for him. He did have some more paroxysms of atrial fibrillation with rapid ventricular response overnight. He is getting hydrated. Impression and plan: 1. Shortness of breath-this appears to be poly-factorial. Undoubtedly his underlying pulmonary condition is contributing, and this could represent progression of his disease. On exam and by laboratory data he does not appear to be volume overloaded. While an anginal equivalent could be contributing to symptoms of shortness of breath, it should not be giving him hypoxia per se. I suspect his pulmonary condition is the greatest contributor to his symptoms. 2. BOOP-chronic, possibly exacerbated. Defer to hospitalist and pulmonary medicine. 3. Coronary artery disease-he does not have obvious acute changes on his EKG. Certainly the dyspnea could be an anginal equivalent. He has mildly abnormal cardiac biomarkers. It is difficult to know whether or not this is really an acute coronary syndrome as it can be near impossible to tease out the symptoms between pulmonary and cardiac pathology. We are going to cycle his cardiac biomarkers and to check an echocardiogram. Further plan a decision will depend on his clinical evolution and the pattern of his troponins. 4. Atrial fibrillation-presumably this is paroxysmal because he is currently in sinus rhythm with frequent PACs and PVCs. He is anticoagulated and rate controlled. I will increase his Cardizem. Dr. Gomez will evaluate him tomorrow. Exam (Progress Note) - Constitutional Vitals: Period Temp Pulse Resp BP Sys/Huddleston Pulse Ox Last 24 Hr 96.4 F-98.2 F 79-96 16-24 111-140/68-84 95-100 Exam: General appearance: normal weight, mild tachypnea but no acute distress - Head Head exam: Present: normal inspection, normocephalic, atraumatic. Absent: hematoma, laceration - Eye Eye exam: Present: EOMI, muddy sclera, arcus senilis. Absent: conjunctival injection, nystagmus, periorbital swelling, laceration to eyelids Pupils: Present: PERRL. Absent: constricted, dilated, fixed, irregular, unequal - ENT ENT exam: Present: normal exam, normal external ear exam - Neck Neck exam: Present: normal inspection. Absent: lymphadenopathy, meningismus, tenderness, thyromegaly - Respiratory Respiratory exam: Present: Fine crackles bilaterally left greater than right. Absent: accessory muscle use, chest wall tenderness - Cardiovascular Cardiovascular exam: Present: Somewhat irregularly irregular rate and rhythm. Absent: carotid bruit, gallop, JVD, rubs - GI/Abdominal GI/Abdominal exam: Present: normal bowel sounds, soft. Absent: distended, firm , guarding, hernia, mass, tenderness, rebound. - Extremities Exam Extremities exam: Present: normal inspection, normal capillary refill. Absent: calf tenderness, edema - Back Exam Back exam: Present: normal inspection. Absent: muscle spasm, vertebral tenderness - Neurological Exam Neurological exam: Present: alert, oriented X3, grossly intact without resting or intention tremor - Psychiatric Psychiatric exam: Present: normal affect, normal mood - Skin Skin exam: Present: Ecchymoses throughout his limbs, neck and torso. warm, dry , intact. Absent: cyanosis, diaphoretic, rash, urticaria Result/EKG - Labs CBC & BMP: 05/24/17 04:01 05/24/17 04:01 Lab Results: I have reviewed the past 24 hour labs Labs: Laboratory Results - last 24 hr 05/23/17 05/23/17 05/23/17 13:31 13:31 13:31 WBC RBC Hgb Hct MCV MCH MCHC RDW Plt Count MPV Neut % (Auto) Lymph % (Auto) Lee % (Auto) Eos % (Auto) Baso % (Auto) Neut # (Auto) Lymph # (Auto) Lee # (Auto) Eos # (Auto) Baso # (Auto) Total Counted 100 Immature Gran % Nucleated RBC % Immature Gran # Segmented Neutrophils 82 Band Neutrophils 1 Lymphocytes 12 L Monocytes 5 Myelocytes Nucleated RBCs 2 Nucleated RBCs # Platelet Estimate Adequate Immature Plt Fraction Polychromasia Slight Hypochromasia Poikilocytosis Slight Anisocytosis Slight Microcytosis Ovalocytes Slight Morphology Comment Sodium Potassium Chloride Carbon Dioxide Anion Gap BUN Creatinine GFR Calculation BUN/Creatinine Ratio Glucose POC Glucose Calculated Osmolality Calcium Magnesium Total Bilirubin AST ALT Alkaline Phosphatase Total Creatine Kinase CK-MB (CK-2) Troponin I Total Protein Albumin Globulin Albumin/Globulin Ratio Urine Color Yellow Urine Appearance Clear Urine pH 5.0 Ur Specific [place] 1.008 Urine Protein Negative Urine Glucose (UA) 50 Urine Ketones Negative Urine Blood Negative Urine Nitrate Negative Urine Bilirubin Negative Urine Urobilinogen < 2.0 H Urine Leukocytes Negative Urine RBC 1 Urine WBC 2 Hyaline Casts 4 Urine Mucus Occasional Ur Culture Indicated? Not indicated Urine Opiates Screen Negative Ur Barbiturates Screen Negative Ur Phencyclidine Scrn Negative U Amphetamine/Methamph Negative U Benzodiazepines Scrn Negative U Cocaine Metab Screen Negative U Cannabinoids Screen Negative 05/23/17 05/23/17 05/23/17 17:29 18:22 19:01 WBC RBC Hgb Hct MCV MCH MCHC RDW Plt Count MPV Neut % (Auto) Lymph % (Auto) Lee % (Auto) Eos % (Auto) Baso % (Auto) Neut # (Auto) Lymph # (Auto) Lee # (Auto) Eos # (Auto) Baso # (Auto) Total Counted Immature Gran % Nucleated RBC % Immature Gran # Segmented Neutrophils Band Neutrophils Lymphocytes Monocytes Myelocytes Nucleated RBCs Nucleated RBCs # Platelet Estimate Immature Plt Fraction Polychromasia Hypochromasia Poikilocytosis Anisocytosis Microcytosis Ovalocytes Morphology Comment Sodium Potassium Chloride Carbon Dioxide Anion Gap BUN Creatinine GFR Calculation BUN/Creatinine Ratio Glucose POC Glucose 201 H Calculated Osmolality Calcium Magnesium Total Bilirubin AST ALT Alkaline Phosphatase Total Creatine Kinase 43 D CK-MB (CK-2) 4.3 H Troponin I 0.052 H 0.050 H Total Protein Albumin Globulin Albumin/Globulin Ratio Urine Color Urine Appearance Urine pH Ur Specific [place] Urine Protein Urine Glucose (UA) Urine Ketones Urine Blood Urine Nitrate Urine Bilirubin Urine Urobilinogen Urine Leukocytes Urine RBC Urine WBC Hyaline Casts Urine Mucus Ur Culture Indicated? Urine Opiates Screen Ur Barbiturates Screen Ur Phencyclidine Scrn U Amphetamine/Methamph U Benzodiazepines Scrn U Cocaine Metab Screen U Cannabinoids Screen 05/23/17 05/24/17 05/24/17 22:18 04:01 04:01 WBC 5.2 D RBC 3.98 Hgb 12.2 L D Hct 36.0 L MCV 90.5 MCH 31 MCHC 33.9 RDW 16.9 Plt Count 95 L D MPV 10.9 Neut % (Auto) 72.4 Lymph % (Auto) 6.5 L Lee % (Auto) 4.4 Eos % (Auto) 0.0 Baso % (Auto) 0.8 Neut # (Auto) 3.8 Lymph # (Auto) 0.3 L Lee # (Auto) 0.2 Eos # (Auto) 0.0 Baso # (Auto) 0.0 Total Counted 100 Immature Gran % 15.9 Nucleated RBC % 0.8 Immature Gran # 0.83 Segmented Neutrophils 79 Band Neutrophils 7 Lymphocytes 10 L Monocytes 3 Myelocytes 1 Nucleated RBCs Nucleated RBCs # 0.04 Platelet Estimate Decreased Immature Plt Fraction 0.0 Polychromasia Slight Hypochromasia 1+ Poikilocytosis Anisocytosis Microcytosis 1+ Ovalocytes Slight Morphology Comment Sodium Potassium Chloride Carbon Dioxide Anion Gap BUN Creatinine GFR Calculation BUN/Creatinine Ratio Glucose POC Glucose Calculated Osmolality Calcium Magnesium Total Bilirubin AST ALT Alkaline Phosphatase Total Creatine Kinase 37 L 34 L CK-MB (CK-2) 4.2 H 4.5 H Troponin I 0.047 H 0.044 Total Protein Albumin Globulin Albumin/Globulin Ratio Urine Color Urine Appearance Urine pH Ur Specific [place] Urine Protein Urine Glucose (UA) Urine Ketones Urine Blood Urine Nitrate Urine Bilirubin Urine Urobilinogen Urine Leukocytes Urine RBC Urine WBC Hyaline Casts Urine Mucus Ur Culture Indicated? Urine Opiates Screen Ur Barbiturates Screen Ur Phencyclidine Scrn U Amphetamine/Methamph U Benzodiazepines Scrn U Cocaine Metab Screen U Cannabinoids Screen 05/24/17 05/24/17 05/24/17 04:01 07:17 10:30 WBC RBC Hgb Hct MCV MCH MCHC RDW Plt Count MPV Neut % (Auto) Lymph % (Auto) Lee % (Auto) Eos % (Auto) Baso % (Auto) Neut # (Auto) Lymph # (Auto) Lee # (Auto) Eos # (Auto) Baso # (Auto) Total Counted Immature Gran % Nucleated RBC % Immature Gran # Segmented Neutrophils Band Neutrophils Lymphocytes Monocytes Myelocytes Nucleated RBCs Nucleated RBCs # Platelet Estimate Immature Plt Fraction Polychromasia Hypochromasia Poikilocytosis Anisocytosis Microcytosis Ovalocytes Morphology Comment Sodium 141 Potassium 4.3 Chloride 100 Carbon Dioxide 31 Anion Gap 14.3 BUN 71 H Creatinine 1.80 H GFR Calculation 39 BUN/Creatinine Ratio 39.00 H Glucose 457 H POC Glucose 315 H 424 H Calculated Osmolality 321.3 H Calcium 8.5 Magnesium 2.3 Total Bilirubin 1.20 H AST 18 ALT 46 Alkaline Phosphatase 92 Total Creatine Kinase CK-MB (CK-2) Troponin I Total Protein 5.7 L Albumin 3.2 L Globulin 2.5 Albumin/Globulin Ratio 1.2 Urine Color Urine Appearance Urine pH Ur Specific [place] Urine Protein Urine Glucose (UA) Urine Ketones Urine Blood Urine Nitrate Urine Bilirubin Urine Urobilinogen Urine Leukocytes Urine RBC Urine WBC Hyaline Casts Urine Mucus Ur Culture Indicated? Urine Opiates Screen Ur Barbiturates Screen Ur Phencyclidine Scrn U Amphetamine/Methamph U Benzodiazepines Scrn U Cocaine Metab Screen U Cannabinoids Screen 05/24/17 05/24/17 05/24/17 11:28 14:57 16:49 WBC RBC Hgb Hct MCV MCH MCHC RDW Plt Count MPV Neut % (Auto) Lymph % (Auto) Lee % (Auto) Eos % (Auto) Baso % (Auto) Neut # (Auto) Lymph # (Auto) Lee # (Auto) Eos # (Auto) Baso # (Auto) Total Counted Immature Gran % Nucleated RBC % Immature Gran # Segmented Neutrophils Band Neutrophils Lymphocytes Monocytes Myelocytes Nucleated RBCs Nucleated RBCs # Platelet Estimate Immature Plt Fraction Polychromasia Hypochromasia Poikilocytosis Anisocytosis Microcytosis Ovalocytes Morphology Comment Sodium Potassium Chloride Carbon Dioxide Anion Gap BUN Creatinine GFR Calculation BUN/Creatinine Ratio Glucose POC Glucose 358 H 265 H 163 H Calculated Osmolality Calcium Magnesium Total Bilirubin AST ALT Alkaline Phosphatase Total Creatine Kinase CK-MB (CK-2) Troponin I Total Protein Albumin Globulin Albumin/Globulin Ratio Urine Color Urine Appearance Urine pH Ur Specific [place] Urine Protein Urine Glucose (UA) Urine Ketones Urine Blood Urine Nitrate Urine Bilirubin Urine Urobilinogen Urine Leukocytes Urine RBC Urine WBC Hyaline Casts Urine Mucus Ur Culture Indicated? Urine Opiates Screen Ur Barbiturates Screen Ur Phencyclidine Scrn U Amphetamine/Methamph U Benzodiazepines Scrn U Cocaine Metab Screen U Cannabinoids Screen Quality Measures - VTE Contraindication to Pharmacological VTE Prophylaxis: Already on Theraputic Agent , No Prophylaxis Needed
[2017-05-24] MEDS: AZITHROMYCIN INJ 500 MG in SODIUM CHLORIDE 0.9% 250 ML IV SCH (17:45)
--- NOTE | 2017-05-24 20:14 | ECHO Report ---
Boy Davison Exam Date: 05/24/2017 09:52 Referring Physician: Technologist: Caty Rangel RDCS Age: 72 Ht (in): 65 Wt (lb): 169 Gender: M Exam Location: [facility] Echo Indications: Chest pain, unspecified, Shortness of breath, CAD with previous stents, hx AFIB, Essential (primary) hypertension, Steroid induced diabetes, Chronic anticoagulation, Jaundice, Elevated troponin, Orthostatic hypotension BP: 133 / 79 HR: 95 Rhythm: Atrial fibrillation Technical Quality: Good IMPRESSIONS Mild left ventricular hypertrophy. Left ventricular ejection fraction is estimated at > 55 %. The left atrium is mildly enlarged. Mild mitral valve regurgitation. Trace to mild aortic valve regurgitation. Mild tricuspid valve regurgitation. Tricuspid regurgitation velocities suggest a PAP of 71 mmHg. MEASUREMENTS (Male / Female) Normal Values 2D ECHO LV Diastolic Diameter PLAX 5.4 cm 4.2 - 5.9 / 3.9 - 5.3 cm LV Systolic Diameter PLAX 4.0 cm LV Fractional Shortening PLAX 26.7 % IVS Diastolic Thickness 1.3 cm 0.6 - 1.0 / 0.6 - 0.9 cm LVPW Diastolic Thickness 1.2 cm 0.6 - 1.0 / 0.6 - 0.9 cm RV Internal Dim ED PLAX 3.3 cm Aortic Root Diameter 4.0 cm LA Systolic Diameter LX 4.4 cm 3.0 - 4.0 / 2.7 - 3.8 cm DOPPLER TR Peak Velocity 391.0 cm/s TR Peak Gradient 61.2 mmHg FINDINGS Left Ventricle Normal left ventricular cavity size. Mild left ventricular hypertrophy. Left ventricular ejection fraction is estimated at > 55 %. Right Ventricle The right ventricle is normal in size and function. Right Atrium The right atrium is normal in size. Left Atrium The left atrium is mildly enlarged. Mitral Valve Morphologically normal mitral valve. Mitral annular calcification. Mild mitral valve regurgitation. Aortic Valve Mild aortic valve calcification. No aortic valve stenosis. Trace to mild aortic valve regurgitation. Tricuspid Valve Morphologically normal tricuspid valve. Mild tricuspid valve regurgitation. Tricuspid regurgitation velocities suggest a PAP of 71 mmHg. Pulmonic Valve Morphologically normal pulmonic valve without significant stenosis. There is no pulmonic regurgitation. Pericardium Normal pericardium without effusion. Aorta Normal ascending aorta dimension. Justino Farrell MD (Electronically Signed) Final Date: 24 May 2017 20:12
[2017-05-24] MEDS: DILTIAZEM CD 180 MG CAPSULE PO SCH (21:31)
[2017-05-25] MEDS: SODIUM CHLORIDE 0.9% 1,000 ML IV SCH ×2 (00:11→13:08)
[2017-05-25] MEDS: ALBUTEROL/IPRATROPIUM 3 ML NEB RESP TX SCH ×4 (01:25→19:16)
[2017-05-25 05:32] LABS: Calcium 8.1 MG/DL (8.5-10.1); Magnesium 2.1 MG/DL (1.8-2.4); Osmolality,Calculated 297.7 MOS/KG (273-304); Potassium 3.8 MMOL/L (3.5-5.1)
[2017-05-25] MEDS: INSULIN GLARGINE 100 UNIT/ML SUBCUT SCH (08:24)
[2017-05-25] MEDS: INSULIN LISPRO 100 UNIT/ML SUBCUT SCH ×4 (08:31→21:15)
[2017-05-25] MEDS: DILTIAZEM CD 180 MG CAPSULE PO SCH (08:32)
[2017-05-25] MEDS: predniSONE 10 MG TABLET PO SCH (08:32)
[2017-05-25] MEDS: ESCITALOPRAM 10 MG TABLET PO SCH (08:32)
[2017-05-25] MEDS: POTASSIUM CHLORIDE 10 MEQ TABLET PO SCH (08:32)
[2017-05-25] MEDS: CLOPIDOGREL 75 MG TABLET PO SCH (08:33)
[2017-05-25] MEDS: PANTOPRAZOLE 40 MG TABLET PO SCH (08:33)
[2017-05-25] MEDS: APIXABAN 2.5 MG TABLET PO SCH ×2 (08:33→21:15)
[2017-05-25] MEDS: LOSARTAN 25 MG TABLET PO SCH (08:46)
--- NOTE | 2017-05-25 12:59 | Pulmonology Progress Note ---
Pulmonary - PN: Subj Interval history: Mr. Davison is a 72 year old white male that apparently has been followed by cardiology and pulmonary in [facility]. He apparently was in the hospital down there recently. He just went home and then came back to the hospital stating that he was having some palpitations and weakness and shortness of breath. He does have a history of coronary artery disease and atrial fibrillation. He apparently had a stent placed in December and apparently did have some complications. A couple years ago he was diagnosed with BOOP and has been on prednisone off and on since then. Recently he was told he probably had some bronchiectasis also. He says is not coughing up much sputum now and his shortness of breath is not bad at rest. He apparently does have home O2. He said he feels well at times and other times he gets very short of breath with any activity. He basically is a non-smoker. He did work in the [employer]. The patient states that he had a fairly good night and feels a little better. He is sitting up in a chair and looks comfortable. He is having some palpitations and apparently he has paroxysmal atrial fibrillation with some PVCs. He has been in sinus rhythm. He is not really having chest pain. He is not coughing a lot. His shortness of breath is about the same. Exam (Progress Note) - Constitutional Vitals: Period Temp Pulse Resp BP Sys/Huddleston Pulse Ox Last 24 Hr 96.7 F-97.9 F 16-102 16-20 118-144/67-93 97-100 Exam: General appearance: normal weight, no acute distress (He is sitting up in a chair and looks comfortable. ) - Head Head exam: Present: normal inspection, normocephalic - Eye Eye exam: Present: EOMI. Absent: scleral icterus Pupils: Present: ELMA - ENT ENT exam: Present: normal exam - Neck Neck exam: Absent: lymphadenopathy, thyromegaly - Respiratory Respiratory exam: Present: He has good breath sounds bilaterally and is moving air well. He has some inspiratory crackles worse on the left. He does not have any wheezing and nothing to suggest effusions. - Cardiovascular Cardiovascular exam: Present: irregular rhythm. His heart rate is controlled but slightly irregular. Absent: gallop, systolic murmur - GI/Abdominal GI/Abdominal exam: Present: normal bowel sounds, soft. Absent: organomegaly, tenderness - Extremities Exam Extremities exam: Absent: calf tenderness, edema - Neurological Exam Neurological exam: Present: alert, oriented X3, CN II-XII intact. Absent: motor sensory deficit - Psychiatric Psychiatric exam: Present: normal affect - Skin Skin exam: Present: warm, dry Results - Labs CBC & BMP: 05/24/17 04:01 05/25/17 04:33 Assessment and Plan (1) Steroid-induced diabetes mellitus Status: Chronic Assessment and plan: He has been started on insulin because of his steroid-induced diabetes. His glucose is 83 this morning. Current Visit: Yes (2) Shortness of breath on exertion Status: Acute Assessment and plan: Patient does not look short of breath now but he does have some chronic lung disease. He seems to have some anxiety also. His breathing looks stable. Current Visit: Yes (3) CAD status post stents Problem details: Xience 3x38mm proximal LAD 12/31/2016 in Mobile Status: Chronic Assessment and plan: He has been evaluated by cardiology. He does have some palpitations and arrhythmias. Current Visit: Yes (4) Hypertension Status: Chronic Assessment and plan: His blood pressure apparently has been labile and some of the symptoms may be due to orthostasis. His blood pressure looks stable at present. Current Visit: Yes (5) A-fib Status: Chronic Assessment and plan: He has been in a sinus rhythm with premature beats at present. He apparently does have problems with palpitations. He has been evaluated by cardiology. 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 He looks like he may have scarring now and was told he had some bronchiectasis. He apparently has had a recent CT of his chest. His lungs sound like has some chronic interstitial lung disease. His chest x- ray looks like it may be chronically abnormal. He will continue some prednisone for now. Current Visit: Yes Specialty Discharge - Follow Up or Referrals
[2017-05-25] MEDS: cefTRIAXone 1,000 MG in SODIUM CHLORIDE 0.9% 100 ML IV SCH (17:10)
--- NOTE | 2017-05-25 17:14 | Hospitalist Progress Note ---
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 Patient without complaints today. Exam - Constitutional Vitals: Period Temp Pulse Resp BP Sys/Huddleston Pulse Ox Last 24 Hr 96.4 F-97.9 F 16-102 16-20 118-144/67-93 95-100 General appearance: normal weight - Head Head exam: Present: normocephalic, atraumatic - Eye Eye exam: Present: EOMI Pupils: Present: ELMA - ENT ENT exam: Present: normal exam - Neck Neck exam: Present: normal inspection - Respiratory Respiratory exam: Present: clear to auscultation bilaterally. Absent: wheezes - Cardiovascular Cardiovascular exam: Present: regular rate and rhythm - GI/Abdominal GI/Abdominal exam: Present: normal bowel sounds, soft. Absent: tenderness, rebound - Extremities Exam Extremities exam: Present: normal inspection - Back Exam Back exam: Present: normal inspection - Neurological Exam Neurological exam: Present: alert, oriented X3 - Psychiatric Psychiatric exam: Present: normal affect, normal mood - Skin Skin exam: Present: warm, intact Results - Labs CBC & BMP: 05/24/17 04:01 05/25/17 04:33 Quality Measures - VTE Contraindication to Pharmacological VTE Prophylaxis: Already on Theraputic Agent , No Prophylaxis Needed Specialty Discharge - Follow Up or Referrals
[2017-05-25] MEDS ORDERED: DILTIAZEM CD 180 MG CAPSULE PO SCH (19:19)
--- NOTE | 2017-05-25 19:24 | Cardiology Progress Note ---
Fili Wilkins Vanessa, RN, am scribing for, and in the presence of, Thad Gomez MD 19 :24. Assessment and Plan - Time spent with patient Time spent with patient: Greater than 30 minutes (Assessment, planning, documentation, med reviewed) (1) Chest pain Status: Acute Assessment and plan: 72 year old WM, PMHx HTN, PAF, CAD with PCI of LAD in December 2016 ([place]), BOOP and bronchiectasis with chronic steroid use, steroid induced diabetes. Now admitted for treatment of shortness of breath with some atypical chest tightness , dizziness, palpitations. Carotid doppler US without ICA stenosis. Echo on with preserved LV function, EF 55%, severe pulm HTN with PAP 71 mmHg. Cardiac monitoring reveals sinus rhythm with PACs / PVCs, brief self sustained episodes of atrial tachycardia with HR 150-180. He is symptomatic with this. -His comorbidities limit antiarrhythmic options. CAD, status post PCI, demand ischemia with RVR, BOOP, recent acute kidney injury, resolved. -Start sotalol 80 mg twice daily. Increase Cardizem to 240 mg twice daily. -The arrhythmia appears to be paroxysmal atrial tachycardia/RVR, keep on telemetry. Although there is a history of paroxysmal A. fib, there is no current EKG documentation of this. For now, continue low-dose Eliquis, he was intolerant of full anticoagulation about -If fails antiarrhythmics, if the arrhythmia appears to be monomorphic, we can consider EP study/ablation. If fails medical and ablative management, we can consider pacemaker implant/antiarrhythmics or AV node ablation. Unfortunately, this arrhythmia is usually secondary to severe lung disease, which seems to be irreversible in his case and progression of his atrial remodeling is likely. The beta agonist pulmonary treatments may exacerbate his arrhythmia burden Current Visit: Yes (2) Shortness of breath on exertion Status: Acute Assessment and plan: SEE PLAN OF CARE LISTED ABOVE. Current Visit: Yes (3) A-fib Status: Chronic Assessment and plan: SEE PLAN OF CARE LISTED ABOVE. Current Visit: Yes Qualifiers: Atrial fibrillation type: paroxysmal Qualified Code(s): I48.0 - Paroxysmal atrial fibrillation (4) BOOP (bronchiolitis obliterans with organizing pneumonia) Status: Chronic Assessment and plan: SEE PLAN OF CARE LISTED ABOVE. Current Visit: Yes (5) CAD status post stents Problem details: Xience 3x38mm proximal LAD 12[place]31/2016 [place] Status: Chronic Assessment and plan: SEE PLAN OF CARE LISTED ABOVE. Current Visit: Yes (6) Chronic anticoagulation Status: Chronic Assessment and plan: SEE PLAN OF CARE LISTED ABOVE. Current Visit: Yes (7) Hypertension Status: Chronic Assessment and plan: SEE PLAN OF CARE LISTED ABOVE. Current Visit: Yes (8) Steroid-induced diabetes mellitus Status: Chronic Assessment and plan: SEE PLAN OF CARE LISTED ABOVE. 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 Davison, 72 year old WM, PMHx PAF, CAD now s/p PCI of proximal LAD in December 2016 with drug-eluting stent, boot and bronchiectasis, chronic steroid use, and steroid induced diabetes, hypertension. He has had several hospital admissions for pneumonia, worsening dypsnea on exertion, and hypoxia with oxygen saturations in 80s (improved with rest) since BOOP dx in the last couple years. Admitted to [facility]'s tele unit on 05/23 with worsening shortness of breath, dizziness, atypical chest pain, and palpitations. No signficant orthostatis. Carotid doppler US negative for carotid stenosis. Echo with preserved EF 55% and severe pulmonary HTN. Since admission, he has had been in sinus rhythm with PAC/PVC, has some paroxysms of atrial fibrillation, and has had some nonsustained atrial tachycardia. 2016: Patient sitting up on side of bed, eating lunch, great appetite. Does have some chest "squeezing" with pain in the upper abdomen area also, non radiating, and associated with dizziness, and shortness of breath. Also says he can feel when his heart rate changes, and says he becomes very dizzy, and says it is worsened with minimal activity (walking to bathroom and back to bed). No significant lower extremity edema. Nonproductive, hacking cough. SBP 120-145 mmHg range. Tele monitoring shows sinus rhythm, and brief self sustained episodes of AT with HR 150-180. Labs reviewed. Electrolytes and renal function stable. Exam (Progress Note) - Constitutional Vitals: Period Temp Pulse Resp BP Sys/Huddleston Pulse Ox Last 24 Hr 96.7 F-97.9 F 16-102 16-20 118-140/67-93 97-100 Exam: General appearance: normal weight, mild tachypnea with conversation. no acute distress. pleasant and cooperative. - Head Head exam: Present: normal inspection, normocephalic, atraumatic. Absent: hematoma, laceration - Eye Eye exam: Present: EOMI, muddy sclera, arcus senilis. Absent: conjunctival injection, nystagmus, periorbital swelling, laceration to eyelids Pupils: Present: PERRL. Absent: constricted, dilated, fixed, irregular, unequal - ENT ENT exam: Present: normal exam, normal external ear exam - Neck Neck exam: Present: normal inspection. Absent: lymphadenopathy, meningismus, tenderness, thyromegaly - Respiratory Respiratory exam: Present: crackles bilaterally left greater than right. Absent : accessory muscle use, chest wall tenderness, rales, wheeze - Cardiovascular Cardiovascular exam: Present: Somewhat irregularly irregular rate and rhythm. Absent: carotid bruit, gallop, JVD, rubs - GI/Abdominal GI/Abdominal exam: Present: normal bowel sounds, soft. Absent: distended, firm , guarding, hernia, mass, tenderness, rebound. - Extremities Exam Extremities exam: Present: normal inspection, normal capillary refill, trace - 1 + edema of lower extremities.. Absent: calf tenderness, - Back Exam Back exam: Present: normal inspection. Absent: muscle spasm, vertebral tenderness - Neurological Exam Neurological exam: Present: alert, oriented X3, grossly intact without resting or intention tremor - Psychiatric Psychiatric exam: Present: normal affect, normal mood - Skin Skin exam: Present: Ecchymoses throughout his limbs, neck and torso (related to previous placement of EKG electrodes). warm, dry, intact. Absent: cyanosis, diaphoretic, rash, urticaria Result/EKG - Labs CBC & BMP: 05/24/17 04:01 05/25/17 04:33 Lab Results: I have reviewed the past 24 hour labs Labs: Laboratory Results - last 24 hr 05/24/17 05/24/17 05/24/17 11:28 14:57 16:49 Sodium Potassium Chloride Carbon Dioxide Anion Gap BUN Creatinine GFR Calculation BUN/Creatinine Ratio Glucose POC Glucose 358 H 265 H 163 H Calculated Osmolality Calcium Magnesium 05/24/17 05/25/17 05/25/17 20:48 04:33 06:31 Sodium 145 Potassium 3.8 Chloride 107 Carbon Dioxide 33 H Anion Gap 8.8 BUN 49 H Creatinine 1.10 GFR Calculation 72 BUN/Creatinine Ratio 44.00 H Glucose 50 L POC Glucose 108 H 126 H Calculated Osmolality 297.7 Calcium 8.1 L Magnesium 2.1 05/25/17 07:37 Sodium Potassium Chloride Carbon Dioxide Anion Gap BUN Creatinine GFR Calculation BUN/Creatinine Ratio Glucose POC Glucose 109 H Calculated Osmolality Calcium Magnesium - Diagnostic Findings Procedure: Chest x-ray: image reviewed by me, report reviewed by me, Ultrasound : image reviewed by me, report reviewed by me - EKG EKG results: interpreted by me, no acute changes EKG shows: sinus rhythm (Paroxysms of atrial fibrillation, atrial tach with HR 150s), atrial fibrillation Quality Measures - VTE Contraindication to Pharmacological VTE Prophylaxis: Already on Theraputic Agent , No Prophylaxis Needed Specialty Discharge - Follow Up or Referrals Patricia Wilkins Attila, MD, personally performed the services described in this documentation, ascribed by Sonali Penn RN in my presence, and it is both accurate and complete 924 .
[2017-05-25] MEDS: SOTALOL 80 MG TABLET PO SCH (21:15)
[2017-05-25] MEDS: DILTIAZEM CD 240 MG CAPSULE PO SCH (22:18)
[2017-05-26] MEDS: ALBUTEROL/IPRATROPIUM 3 ML NEB RESP TX SCH ×4 (00:18→19:00)
--- NOTE | 2017-05-26 07:38 | Physician Query Form ---
CLICK EDIT DOCUMENT TO SELECT QUERY ANSWER --> OK --> SIGN Shavon Valles RN, CCDS Certified Clinical Assistant Professor Of Dietetics W) [phone] (f) [phone] [email or web address] PROVIDERS: Make your selection(s) from the choices in EACH section by typing an "x" and enter comments in the comment section. Please use your independent medical judgment in providing your response. This request does not imply that any particular answer is desired or expected. CLINICAL INDICATORS: (Providers should not edit this section) The medical record indicates that the patient was admitted with "Shortness of breath on exertion", history of "BOOP (bronchiolitis obliterans with organizing pneumonia)", "left lower lobe pneumonia" is mentioned in the ER, "COPD with complicating bronchiectasis" AND the patient was treated with Antibiotics/ Oxygen. As the attending MD can you please clarify the mostly likely cause of the SOB during this admission? Based on the above, could you clarify the appropriate diagnosis, if significant , that supports the above abnormalities and additional evaluation, monitoring, and/or treatment rendered: ( ) COPD with complicating bronchiectasis (x ) BOOP with exacerbation ( ) COPD with exacerbation ( ) Pneumonia ( ) Other, please specify: ( ) Clinically unable to determine COMMENTS: PLEASE ALSO DOCUMENT RESPONSE IN PROGRESS NOTES AND/OR DISCHARGE SUMMARY Use of terms such as suspected, likely, or probable (associated with a specific diagnosis that is being evaluated, monitored, or treated as if it exists) are acceptable and can be restated in the discharge summary if not ruled out. MTDD
--- NOTE | 2017-05-26 07:44 | Physician Query Form ---
CLICK EDIT DOCUMENT TO SELECT QUERY ANSWER --> OK --> SIGN Shavon Valles RN, CCDS Certified Clinical Bridge/Structure Inspection Team Leader W) [phone] (f) [phone] [email or web address] PROVIDERS: Make your selection(s) from the choices in EACH section by typing an "x" and enter comments in the comment section. Please use your independent medical judgment in providing your response. This request does not imply that any particular answer is desired or expected. CLINICAL INDICATORS: (Providers should not edit this section) The medical record indicates that the patient was admitted with "Shortness of breath on exertion", HISTORY of CHF, BNP of 177#, EF 55% and the patient is on Lasix PO/IV. Please provide further specificity regarding CHF. TYPE: ( ) Systolic (HFrEF - heart failure with reduced systolic function/EF) ( ) Diastolic (HFpEF - heart failure with preserved systolic function/EF) ( ) Combined Systolic/Diastolic ( ) Other, please specify: ( x) Clinically unable to determine ( ) Past Medical History of Systolic CHF ( ) Past Medical History of Diastolic CHF (x ) Clinically unable to determine COMMENTS: PLEASE ALSO DOCUMENT RESPONSE IN PROGRESS NOTES AND/OR DISCHARGE SUMMARY Use of terms such as suspected, likely, or probable (associated with a specific diagnosis that is being evaluated, monitored, or treated as if it exists) are acceptable and can be restated in the discharge summary if not ruled out. MTDD
[2017-05-26] MEDS: LOSARTAN 25 MG TABLET PO SCH (09:10)
[2017-05-26] MEDS: CLOPIDOGREL 75 MG TABLET PO SCH (09:10)
[2017-05-26] MEDS: INSULIN GLARGINE 100 UNIT/ML SUBCUT SCH (09:10)
[2017-05-26] MEDS: ESCITALOPRAM 10 MG TABLET PO SCH (09:11)
[2017-05-26] MEDS: APIXABAN 2.5 MG TABLET PO SCH ×2 (09:11→20:48)
[2017-05-26] MEDS: predniSONE 10 MG TABLET PO SCH (09:11)
[2017-05-26] MEDS: POTASSIUM CHLORIDE 10 MEQ TABLET PO SCH (09:11)
[2017-05-26] MEDS: SOTALOL 80 MG TABLET PO SCH ×2 (09:11→20:48)
[2017-05-26] MEDS: PANTOPRAZOLE 40 MG TABLET PO SCH (09:12)
[2017-05-26] MEDS: DILTIAZEM CD 240 MG CAPSULE PO SCH ×2 (09:12→20:48)
[2017-05-26] MEDS: INSULIN LISPRO 100 UNIT/ML SUBCUT SCH ×3 (10:46→17:20)
--- NOTE | 2017-05-26 13:27 | Pulmonology Progress Note ---
Pulmonary - PN: Subj Interval history: Mr. Davison is a 72 year old white male that apparently has been followed by cardiology and pulmonary in [facility]. He apparently was in the hospital down there recently. He just went home and then came back to the hospital stating that he was having some palpitations and weakness and shortness of breath. He does have a history of coronary artery disease and atrial fibrillation. He apparently had a stent placed in December and apparently did have some complications. A couple years ago he was diagnosed with BOOP and has been on prednisone off and on since then. Recently he was told he probably had some bronchiectasis also. He says is not coughing up much sputum now and his shortness of breath is not bad at rest. He apparently does have home O2. He said he feels well at times and other times he gets very short of breath with any activity. He basically is a non-smoker. 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 The patient had a fairly good night and does not seem to be that short of breath now. He says he still has some palpitations although it looks like he is in a sinus rhythm now. His breathing seems to be about the same. He appears to be reasonably stable at present. Exam (Progress Note) - Constitutional Vitals: Period Temp Pulse Resp BP Sys/Huddleston Pulse Ox Last 24 Hr 96.4 F-98.2 F 55-81 16-20 102-142/55-83 87-100 Exam: General appearance: normal weight, no acute distress (He is resting comfortably in bed.) - Head Head exam: Present: normal inspection, normocephalic - Eye Eye exam: Present: EOMI. Absent: scleral icterus Pupils: Present: ELMA - ENT ENT exam: Present: normal exam - Neck Neck exam: Absent: lymphadenopathy, thyromegaly - Respiratory Respiratory exam: Present: He has good breath sounds bilaterally and is moving air well. He has some inspiratory crackles worse on the left. He does not have any wheezing and nothing to suggest effusions. - Cardiovascular Cardiovascular exam: Present: His heart rate is nice and regular now without a murmur. - GI/Abdominal GI/Abdominal exam: Present: normal bowel sounds, soft. Absent: organomegaly, tenderness - Extremities Exam Extremities exam: Absent: calf tenderness, edema - Neurological Exam Neurological exam: Present: alert, oriented X3, CN II-XII intact. Absent: motor sensory deficit - Psychiatric Psychiatric exam: Present: normal affect - Skin Skin exam: Present: warm, dry Results - Labs CBC & BMP: 05/24/17 04:01 05/25/17 04:33 Assessment and Plan (1) Steroid-induced diabetes mellitus Status: Chronic Assessment and plan: He has been started on insulin because of his steroid-induced diabetes. His glucose is 84 this morning. He felt like his glucose was a little low this morning. Current Visit: Yes (2) Shortness of breath on exertion Status: Acute Assessment and plan: Patient does not look short of breath now but he does have some chronic lung disease. He seems to have some anxiety also. His breathing looks stable. Current Visit: Yes (3) CAD status post stents Problem details: Xience 3x38mm proximal LAD 12/31/2016 [place] Status: Chronic Assessment and plan: He has been evaluated by cardiology. He does have some palpitations and arrhythmias. He mainly has a lot of anxiety I think Current Visit: Yes (4) Hypertension Status: Chronic Assessment and plan: His blood pressure apparently has been labile and some of the symptoms may be due to orthostasis. His blood pressure looks stable at present. Current Visit: Yes (5) A-fib Status: Chronic Assessment and plan: He has been in a sinus rhythm with premature beats at present. He apparently does have problems with palpitations. He has been evaluated by cardiology. 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 He looks like he may have scarring now and was told he had some bronchiectasis. He apparently has had a recent CT of his chest. His lungs sound like has some chronic interstitial lung disease. His chest x- ray looks like it may be chronically abnormal. He seems to be tolerating prednisone okay. At this point I would probably just follow his lungs. Current Visit: Yes Specialty Discharge - Follow Up or Referrals
--- NOTE | 2017-05-26 16:27 | Hospitalist Progress Note ---
Assessment and Plan (1) Steroid-induced diabetes mellitus Status: Chronic Assessment and plan: Hypoglycemia in the mornings Discontinue nightly lispro dose Decrease Lantus to 20 units daily Current Visit: Yes (2) Shortness of breath on exertion Status: Acute Current Visit: Yes (3) CAD status post stents Problem details: Xience 3x38mm proximal LAD 12/31/2016 [place] Status: Chronic Current Visit: Yes (4) A-fib Status: Chronic Assessment and plan: Cardiology assisting Started on sotalol Current Visit: Yes Qualifiers: Atrial fibrillation type: paroxysmal Qualified Code(s): I48.0 - Paroxysmal atrial fibrillation (5) 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 Patient with episode of hypoglycemia this morning. Exam - Constitutional Vitals: Period Temp Pulse Resp BP Sys/Huddleston Pulse Ox Last 24 Hr 97.1 F-98.2 F 50-81 16-20 102-132/55-83 87-100 General appearance: over weight - Head Head exam: Present: normocephalic, atraumatic - Eye Eye exam: Present: EOMI Pupils: Present: ELMA - ENT ENT exam: Present: normal exam - Neck Neck exam: Present: normal inspection - Respiratory Respiratory exam: Present: clear to auscultation bilaterally. Absent: wheezes - Cardiovascular Cardiovascular exam: Present: regular rate and rhythm - GI/Abdominal GI/Abdominal exam: Present: normal bowel sounds, soft. Absent: tenderness, rebound - Extremities Exam Extremities exam: Present: normal inspection - Back Exam Back exam: Present: normal inspection - Neurological Exam Neurological exam: Present: alert, oriented X3 - Psychiatric Psychiatric exam: Present: normal affect, normal mood - Skin Skin exam: Present: warm, intact Results - Labs CBC & BMP: 05/24/17 04:01 05/25/17 04:33 Quality Measures - VTE Contraindication to Pharmacological VTE Prophylaxis: Already on Theraputic Agent , No Prophylaxis Needed Specialty Discharge - Follow Up or Referrals
[2017-05-26] MEDS: cefTRIAXone 1,000 MG in SODIUM CHLORIDE 0.9% 100 ML IV SCH (18:38)
--- NOTE | 2017-05-26 19:37 | Cardiology Progress Note ---
Fili Wilkins Vanessa RN, am scribing for, and in the presence of, Thad Gomez MD 19 :36. Assessment and Plan - Time spent with patient Time spent with patient: Greater than 30 minutes (1) Chest pain Status: Acute Assessment and plan: 72 year old WM, PMHx HTN, PAF, CAD with PCI of LAD in December 2016 ([place]), BOOP and bronchiectasis with chronic steroid use, steroid induced diabetes. Now admitted for treatment of shortness of breath with some atypical chest tightness , dizziness, palpitations. Carotid doppler US without ICA stenosis. Echo on with preserved LV function, EF 55%, severe pulm HTN with PAP 71 mmHg. Cardiac monitoring reveals sinus rhythm with PACs / PVCs, brief self sustained episodes of atrial tachycardia with HR 150-180. He is symptomatic with this. -Good response to sotalol, baseline mild sinus bradycardia. If he does not develop pulmonary side effects, this may be an option for longer term rhythm control. If bradycardia becomes symptomatic, we can add a dual-chamber pacemaker. Continue Cardizem 240 mg twice daily -His comorbidities limit antiarrhythmic options. CAD, status post PCI, demand ischemia with RVR, BOOP, recent acute kidney injury, resolved. -The arrhythmia appears to be paroxysmal atrial tachycardia/RVR, keep on telemetry. Although there is a history of paroxysmal A. fib, there is no current EKG documentation of this. For now, continue low-dose Eliquis, he was intolerant of full anticoagulation about Current Visit: Yes (2) Shortness of breath on exertion Status: Acute Assessment and plan: SEE PLAN OF CARE LISTED ABOVE. Current Visit: Yes (3) A-fib Status: Chronic Assessment and plan: SEE PLAN OF CARE LISTED ABOVE. Current Visit: Yes Qualifiers: Atrial fibrillation type: paroxysmal Qualified Code(s): I48.0 - Paroxysmal atrial fibrillation (4) BOOP (bronchiolitis obliterans with organizing pneumonia) Status: Chronic Assessment and plan: SEE PLAN OF CARE LISTED ABOVE. Current Visit: Yes (5) CAD status post stents Problem details: Xience 3x38mm proximal LAD 12/31/2016 [place] Status: Chronic Assessment and plan: SEE PLAN OF CARE LISTED ABOVE. Current Visit: Yes (6) Chronic anticoagulation Status: Chronic Assessment and plan: SEE PLAN OF CARE LISTED ABOVE. Current Visit: Yes (7) Hypertension Status: Chronic Assessment and plan: SEE PLAN OF CARE LISTED ABOVE. Current Visit: Yes (8) Steroid-induced diabetes mellitus Status: Chronic Assessment and plan: SEE PLAN OF CARE LISTED ABOVE. 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 Davison, 72 year old WM, PMHx PAF, CAD now s/p PCI of proximal LAD in December 2016 with drug-eluting stent, boot and bronchiectasis, chronic steroid use, and steroid induced diabetes, hypertension. He has had several hospital admissions for pneumonia, worsening dypsnea on exertion, and hypoxia with oxygen saturations in 80s (improved with rest) since BOOP dx in the last couple years. Admitted to [facility] tele unit on 05/23 with worsening shortness of breath, dizziness, atypical chest pain, and palpitations. No signficant orthostatis. Carotid doppler US negative for carotid stenosis. Echo with preserved EF 55% and severe pulmonary HTN. Since admission, he has had been in sinus rhythm with PAC/PVC, has some paroxysms of atrial fibrillation, and has had some nonsustained atrial tachycardia. 2016: Sitting up on side of bed, eating lunch. Appetite excellent. Reports he feels "maybe a little better" than yesterday but not significantly improved. Some dizziness still and some decreased oxygen levels upper 80s / fatigue with ambulation to bathroom, completing ADLs. No chest pain but does have some " chest fluttering" intermittently. SBP 110-125 mmHg. Sinus rhythm per tele monitor, HR 60s-70s. Less frequent episodes of atrial tach today. Requesting to increase his activity and does not want to be sedentary. PT consult, walker assistance as needed. Exam (Progress Note) - Constitutional Vitals: Period Temp Pulse Resp BP Sys/Huddleston Pulse Ox Last 24 Hr 96.4 F-98.2 F 56-93 16-20 102-144/55-80 87-99 Exam: General appearance: normal weight, mild tachypnea with conversation. no acute distress. pleasant and cooperative. - Head Head exam: Present: normal inspection, normocephalic, atraumatic. Absent: hematoma, laceration - Eye Eye exam: Present: EOMI, muddy sclera, arcus senilis. Absent: conjunctival injection, nystagmus, periorbital swelling, laceration to eyelids Pupils: Present: PERRL. Absent: constricted, dilated, fixed, irregular, unequal - ENT ENT exam: Present: normal exam, normal external ear exam - Neck Neck exam: Present: normal inspection. Absent: lymphadenopathy, meningismus, tenderness, thyromegaly - Respiratory Respiratory exam: Present: scant crackles bilaterally left greater than right- improved from yesterday. Absent: accessory muscle use, chest wall tenderness, rales, wheeze - Cardiovascular Cardiovascular exam: Present: Somewhat irregularly irregular rate and rhythm. Absent: carotid bruit, gallop, JVD, rubs - GI/Abdominal GI/Abdominal exam: Present: normal bowel sounds, soft. Absent: distended, firm , guarding, hernia, mass, tenderness, rebound. - Extremities Exam Extremities exam: Present: normal inspection, normal capillary refill, trace - 1 + edema of lower extremities.. Absent: calf tenderness, - Back Exam Back exam: Present: normal inspection. Absent: muscle spasm, vertebral tenderness - Neurological Exam Neurological exam: Present: alert, oriented X3, grossly intact without resting or intention tremor - Psychiatric Psychiatric exam: Present: normal affect, normal mood - Skin Skin exam: Present: Ecchymoses throughout his limbs, neck and torso (related to previous placement of EKG electrodes). warm, dry, intact. Absent: cyanosis, diaphoretic, rash, urticaria Result/EKG - Labs CBC & BMP: 05/24/17 04:01 05/25/17 04:33 Lab Results: I have reviewed the past 24 hour labs Labs: Laboratory Results - last 24 hr 05/25/17 05/25/17 05/25/17 11:20 15:54 16:43 POC Glucose 83 385 H 362 H 05/25/17 05/25/17 05/25/17 19:35 23:36 23:53 POC Glucose 214 H 33 L* 175 H 05/26/17 05/26/17 05/26/17 00:16 01:40 05:31 POC Glucose 140 H 213 H 44 L* 05/26/17 05/26/17 05:55 07:22 POC Glucose 189 H 282 H - EKG EKG results: interpreted by me, no acute changes Quality Measures - VTE Contraindication to Pharmacological VTE Prophylaxis: Already on Theraputic Agent , No Prophylaxis Needed Specialty Discharge - Follow Up or Referrals I, Roka,Thad, MD, personally performed the services described in this documentation, ascribed by Sonali Penn RN in my presence, and it is both accurate and complete .
[2017-05-27] MEDS: ALBUTEROL/IPRATROPIUM 3 ML NEB RESP TX SCH ×4 (00:11→20:08)
[2017-05-27] MEDS: INSULIN LISPRO 100 UNIT/ML SUBCUT SCH ×3 (08:20→16:01)
[2017-05-27] MEDS: INSULIN GLARGINE 100 UNIT/ML SUBCUT SCH (08:57)
[2017-05-27] MEDS: predniSONE 10 MG TABLET PO SCH (08:57)
[2017-05-27] MEDS: PANTOPRAZOLE 40 MG TABLET PO SCH (08:58)
[2017-05-27] MEDS: POTASSIUM CHLORIDE 10 MEQ TABLET PO SCH (08:58)
[2017-05-27] MEDS: LOSARTAN 25 MG TABLET PO SCH (08:58)
[2017-05-27] MEDS: ESCITALOPRAM 10 MG TABLET PO SCH (08:59)
[2017-05-27] MEDS: DILTIAZEM CD 240 MG CAPSULE PO SCH ×2 (08:59→21:26)
[2017-05-27] MEDS: SOTALOL 80 MG TABLET PO SCH ×2 (08:59→21:26)
[2017-05-27] MEDS: APIXABAN 2.5 MG TABLET PO SCH ×2 (09:01→21:27)
[2017-05-27] MEDS: CLOPIDOGREL 75 MG TABLET PO SCH (09:01)
--- NOTE | 2017-05-27 13:21 | Pulmonology Progress Note ---
Pulmonary - PN: Subj Interval history: Mr. Davison is a 72 year old white male that apparently has been followed by cardiology and pulmonary in [facility]. He apparently was in the hospital down there recently. He just went home and then came back to the hospital stating that he was having some palpitations and weakness and shortness of breath. He does have a history of coronary artery disease and atrial fibrillation. He apparently had a stent placed in December and apparently did have some complications. A couple years ago he was diagnosed with BOOP and has been on prednisone off and on since then. Recently he was told he probably had some bronchiectasis also. He says is not coughing up much sputum now and his shortness of breath is not bad at rest. He apparently does have home O2. He said he feels well at times and other times he gets very short of breath with any activity. He basically is a non-smoker. He did work in the [employer]. The patient says he had a fairly good night and is breathing a little better. He is not having as much palpitations. He is not a very good historian but he says his breathing is better now than it was 2 years ago when he was first diagnosed with BOOP. He seems to be tolerating medicines okay. His glucose still fluctuates a good bit. Exam (Progress Note) - Constitutional Vitals: Period Temp Pulse Resp BP Sys/Huddleston Pulse Ox Last 24 Hr 96.7 F-97.8 F 51-75 16-22 100-157/61-78 95-100 Exam: General appearance: normal weight, no acute distress (He is resting comfortably in bed. He does not appear to be having any trouble breathing now.) - Head Head exam: Present: normal inspection, normocephalic - Eye Eye exam: Present: EOMI. Absent: scleral icterus Pupils: Present: ELMA - ENT ENT exam: Present: normal exam - Neck Neck exam: Absent: lymphadenopathy, thyromegaly - Respiratory Respiratory exam: Present: He has good breath sounds bilaterally and is moving air well. He has some inspiratory crackles worse on the left. He does not have any wheezing and nothing to suggest effusions. - Cardiovascular Cardiovascular exam: Present: His heart rate is nice and regular now without a murmur. - GI/Abdominal GI/Abdominal exam: Present: normal bowel sounds, soft. Absent: organomegaly, tenderness - Extremities Exam Extremities exam: Absent: calf tenderness, edema, he has no signs of phlebitis. - Neurological Exam Neurological exam: Present: alert, oriented X3, CN II-XII intact. Absent: motor sensory deficit - Psychiatric Psychiatric exam: Present: normal affect - Skin Skin exam: Present: warm, dry Results - Labs CBC & BMP: 05/24/17 04:01 05/25/17 04:33 Assessment and Plan (1) Steroid-induced diabetes mellitus Status: Chronic Assessment and plan: He has been started on insulin because of his steroid-induced diabetes. His glucose is 275 this morning. Current Visit: Yes (2) Shortness of breath on exertion Status: Acute Assessment and plan: Patient does not look short of breath now but he does have some chronic lung disease. He seems to have some anxiety also. His breathing looks stable. He says his breathing is better than it was. Current Visit: Yes (3) CAD status post stents Problem details: Xience 3x38mm proximal LAD 12/31/2016 [place] Status: Chronic Assessment and plan: He has been evaluated by cardiology. He does have some palpitations and arrhythmias. He mainly has a lot of anxiety I think Current Visit: Yes (4) Hypertension Status: Chronic Assessment and plan: His blood pressure apparently has been labile and some of the symptoms may be due to orthostasis. His blood pressure looks stable at present. His symptoms seem to be better now. Current Visit: Yes (5) A-fib Status: Chronic Assessment and plan: He has been in a sinus rhythm with premature beats at present. He apparently does have problems with palpitations. He has been evaluated by cardiology. 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 He looks like he may have scarring now and was told he had some bronchiectasis. He apparently has had a recent CT of his chest. His lungs sound like has some chronic interstitial lung disease. His chest x- ray looks like it may be chronically abnormal. He seems to be tolerating prednisone okay. At this point I would probably just follow his lungs. He tells me today that his breathing is better than it was 2 years ago. Current Visit: Yes Specialty Discharge - Follow Up or Referrals
--- NOTE | 2017-05-27 16:57 | Hospitalist Progress Note ---
Assessment and Plan (1) Steroid-induced diabetes mellitus Status: Chronic Assessment and plan: Hypoglycemia in the mornings Discontinue nightly lispro dose Decreased Lantus to 20 units daily Current Visit: Yes (2) Shortness of breath on exertion Status: Acute Current Visit: Yes (3) CAD status post stents Problem details: Xience 3x38mm proximal LAD 12/31/2016 [place] Status: Chronic Current Visit: Yes (4) A-fib Status: Chronic Assessment and plan: Cardiology assisting Started on sotalol Current Visit: Yes Qualifiers: Atrial fibrillation type: paroxysmal Qualified Code(s): I48.0 - Paroxysmal atrial fibrillation (5) 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 Patient with no complaints. Hopefully will be ready for discharge soon. Exam - Constitutional Vitals: Period Temp Pulse Resp BP Sys/Huddleston Pulse Ox Last 24 Hr 96.7 F-97.8 F 51-75 16-22 100-157/61-78 92-100 General appearance: normal weight - Head Head exam: Present: normocephalic, atraumatic - Eye Eye exam: Present: EOMI Pupils: Present: ELMA - ENT ENT exam: Present: normal exam - Neck Neck exam: Present: normal inspection - Respiratory Respiratory exam: Present: clear to auscultation bilaterally. Absent: rhonchi, wheezes - Cardiovascular Cardiovascular exam: Present: regular rate and rhythm - GI/Abdominal GI/Abdominal exam: Present: normal bowel sounds, soft. Absent: tenderness, rebound - Extremities Exam Extremities exam: Present: normal inspection - Back Exam Back exam: Present: normal inspection - Neurological Exam Neurological exam: Present: alert, oriented X3 - Psychiatric Psychiatric exam: Present: normal affect, normal mood - Skin Skin exam: Present: warm, intact Results - Labs CBC & BMP: 05/24/17 04:01 05/25/17 04:33 Quality Measures - VTE Contraindication to Pharmacological VTE Prophylaxis: Already on Theraputic Agent , No Prophylaxis Needed Specialty Discharge - Follow Up or Referrals
[2017-05-27] MEDS: cefTRIAXone 1,000 MG in SODIUM CHLORIDE 0.9% 100 ML IV SCH (17:31)
--- NOTE | 2017-05-27 17:33 | Cardiology Progress Note ---
Fili Wilkins Vanessa, RN, am scribing for, and in the presence of, Thad Gomez MD 17 :32. Assessment and Plan - Time spent with patient Time spent with patient: Greater than 30 minutes (1) Chest pain Status: Acute Assessment and plan: 72 year old WM, PMHx HTN, PAF, CAD with PCI of LAD in December 2016 ([place]), BOOP and bronchiectasis with chronic steroid use, steroid induced diabetes. Now admitted for treatment of shortness of breath with some atypical chest tightness , dizziness, palpitations. Carotid doppler US without ICA stenosis. Echo on with preserved LV function, EF 55%, severe pulm HTN with PAP 71 mmHg. Cardiac monitoring reveals sinus rhythm with PACs / PVCs, brief self sustained episodes of atrial tachycardia with HR 150-180. He is symptomatic with this. Much improved now after initiation of sotalol therapy. -Continues to do well with sotalol with only mild bradycardia and no findings for bronchospactic reaction. This may be a good option for rn long term care rhythm control. Continue Cardizem 240 mg PO twice daily. He still has dyspnea on exertion, with minimal activity, also, there seems to be an anxiety component. Dual-chamber pacemaker implant is an option, if becomes symptomatic from bradycardia, or medications needed to control his tachyarrhythmia. -Documented history of paroxysmal atrial fib but no EKG or tele monitoring to support this during admission. Continue low dose Eliquis as he as been intolerant of full anticoagulation in the past. Arrhythmia appears to be paroxysmal atrial tach with rapid ventricular response. -CAD, status post PCI, and has had demand ischemia due to RVR. Other comorbidities BOOP, recent KATE (resolved) now. His antiarrhythmic options are limited. Current Visit: Yes (2) Shortness of breath on exertion Status: Acute Assessment and plan: SEE PLAN OF CARE LISTED ABOVE. Current Visit: Yes (3) A-fib Status: Chronic Assessment and plan: SEE PLAN OF CARE LISTED ABOVE. Current Visit: Yes Qualifiers: Atrial fibrillation type: paroxysmal Qualified Code(s): I48.0 - Paroxysmal atrial fibrillation (4) BOOP (bronchiolitis obliterans with organizing pneumonia) Status: Chronic Assessment and plan: SEE PLAN OF CARE LISTED ABOVE. Current Visit: Yes (5) CAD status post stents Problem details: Xience 3x38mm proximal LAD 12/31/2016 [place] Status: Chronic Assessment and plan: SEE PLAN OF CARE LISTED ABOVE. Current Visit: Yes (6) Chronic anticoagulation Status: Chronic Assessment and plan: SEE PLAN OF CARE LISTED ABOVE. Current Visit: Yes (7) Hypertension Status: Chronic Assessment and plan: SEE PLAN OF CARE LISTED ABOVE. Current Visit: Yes (8) Steroid-induced diabetes mellitus Status: Chronic Assessment and plan: SEE PLAN OF CARE LISTED ABOVE. 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 Davison, 72 year old WM, PMHx PAF, CAD now s/p PCI of proximal LAD in December 2016 with drug-eluting stent, boot and bronchiectasis, chronic steroid use, and steroid induced diabetes, hypertension. He has had several hospital admissions for pneumonia, worsening dypsnea on exertion, and hypoxia with oxygen saturations in 80s (improved with rest) since BOOP dx in the last couple years. Admitted to [facility]'s tele unit on 05/23 with worsening shortness of breath, dizziness, atypical chest pain, and palpitations. No signficant orthostatis. Carotid doppler US negative for carotid stenosis. Echo with preserved EF 55% and severe pulmonary HTN. Since admission, he has had been in sinus rhythm with PAC/PVC, has some paroxysms of atrial fibrillation, and has had some nonsustained atrial tachycardia. Started on sotalol therapy with first dose on the evening of 05/25. Atrial tachycardia much improved, and he has only intermittent mild bradycardia. 2016: Feels his breathing continues to improve today and he feels a little better. Still has some dizziness with exertion and easily fatigued. He did increase his activity today with PT assist using a walker. Telemetry reveals basically no atrial tachycardia. He does have some intermittent mild bradycardia with HR mid to upper 50s. Does not appear to be experiencing bronchospasm with sotalol therapy. BP 134/70. Exam (Progress Note) - Constitutional Vitals: Period Temp Pulse Resp BP Sys/Huddleston Pulse Ox Last 24 Hr 96.7 F-97.8 F 50-75 16-22 100-157/61-78 94-100 Exam: General appearance: normal weight, mild tachypnea with conversation but appears to be stable.. no acute distress. pleasant and cooperative. - Head Head exam: Present: normal inspection, normocephalic, atraumatic. Absent: hematoma, laceration - Eye Eye exam: Present: EOMI, muddy sclera, arcus senilis. Absent: conjunctival injection, nystagmus, periorbital swelling, laceration to eyelids Pupils: Present: PERRL. Absent: constricted, dilated, fixed, irregular, unequal - ENT ENT exam: Present: normal exam, normal external ear exam - Neck Neck exam: Present: normal inspection. Absent: lymphadenopathy, meningismus, tenderness, thyromegaly - Respiratory Respiratory exam: Present: scant crackles bilaterally left greater than right- improved from yesterday. Absent: accessory muscle use, chest wall tenderness, rales, wheeze - Cardiovascular Cardiovascular exam: Present: Regular rate and rhythm. Intermittent mild bradycardia absent: carotid bruit, gallop, JVD, rubs - GI/Abdominal GI/Abdominal exam: Present: normal bowel sounds, soft. Absent: distended, firm , guarding, hernia, mass, tenderness, rebound. - Extremities Exam Extremities exam: Present: normal inspection, normal capillary refill, trace edema of bilateral lower extremities. Absent: calf tenderness - Back Exam Back exam: Present: normal inspection. Absent: muscle spasm, vertebral tenderness - Neurological Exam Neurological exam: Present: alert, oriented X3, grossly intact without resting or intention tremor - Psychiatric Psychiatric exam: Present: normal affect, normal mood. Slightly anxious at times. - Skin Skin exam: Present: Ecchymoses throughout his limbs, neck and torso (related to previous placement of EKG electrodes). warm, dry, intact. Absent: cyanosis, diaphoretic, rash, urticaria Result/EKG - Labs CBC & BMP: 05/24/17 04:01 05/25/17 04:33 Lab Results: I have reviewed the past 24 hour labs Labs: Laboratory Results - last 24 hr 05/26/17 05/26/17 05/27/17 14:58 19:04 08:00 POC Glucose 327 H 333 H 80 05/27/17 11:54 POC Glucose 275 H - EKG EKG results: interpreted by me, no acute changes EKG shows: sinus rhythm (Transient mild bradycardia) Quality Measures - VTE Contraindication to Pharmacological VTE Prophylaxis: Already on Theraputic Agent , No Prophylaxis Needed Specialty Discharge - Follow Up or Referrals Patricia Wilkins Attila, MD, personally performed the services described in this documentation, ascribed by Sonali Penn RN in my presence, and it is both accurate and complete 732 .
[2017-05-27] MEDS ORDERED: FUROSEMIDE 20 MG/2 ML VIAL IV ONE (20:37)
[2017-05-28] MEDS: ALBUTEROL/IPRATROPIUM 3 ML NEB RESP TX SCH ×3 (00:33→13:13)
[2017-05-28 06:39] LABS: Calcium 8.2 MG/DL (8.5-10.1); Magnesium 2.2 MG/DL (1.8-2.4); Osmolality,Calculated 292.3 MOS/KG (273-304); Potassium 3.6 MMOL/L (3.5-5.1)
--- NOTE | 2017-05-28 07:13 | EKG Report ---
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
[2017-05-28] MEDS: INSULIN LISPRO 100 UNIT/ML SUBCUT SCH ×2 (08:23→12:18)
--- NOTE | 2017-05-28 09:15 | Pulmonology Progress Note ---
Pulmonary - PN: Subj Interval history: Mr. Davison is a 72 year old white male that apparently has been followed by cardiology and pulmonary in [facility]. He apparently was in the hospital down there recently. He just went home and then came back to the hospital stating that he was having some palpitations and weakness and shortness of breath. He does have a history of coronary artery disease and atrial fibrillation. He apparently had a stent placed in December and apparently did have some complications. A couple years ago he was diagnosed with BOOP and has been on prednisone off and on since then. Recently he was told he probably had some bronchiectasis also. He says is not coughing up much sputum now and his shortness of breath is not bad at rest. He apparently does have home O2. He said he feels well at times and other times he gets very short of breath with any activity. He basically is a non-smoker. 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 The patient says he is better and his palpitations are better. His shortness of breath is stable. Overall he feels like he can go home. Will have him come back to the office and follow-up on his lungs. Exam (Progress Note) - Constitutional Vitals: Period Temp Pulse Resp BP Sys/Huddleston Pulse Ox Last 24 Hr 96.6 F-97.8 F 60-96 16-22 112-134/69-85 92-100 Exam: General appearance: normal weight, no acute distress (He is resting comfortably in bed. He does not appear to be having any trouble breathing now.) - Head Head exam: Present: normal inspection, normocephalic - Eye Eye exam: Present: EOMI. Absent: scleral icterus Pupils: Present: ELMA - ENT ENT exam: Present: normal exam - Neck Neck exam: Absent: lymphadenopathy, thyromegaly - Respiratory Respiratory exam: Present: He has good breath sounds bilaterally and is moving air well. He has some inspiratory crackles worse on the left. He does not have any wheezing and nothing to suggest effusions. - Cardiovascular Cardiovascular exam: Present: His heart rate is nice and regular now without a murmur. He has occasional PVCs - GI/Abdominal GI/Abdominal exam: Present: normal bowel sounds, soft. Absent: organomegaly, tenderness - Extremities Exam Extremities exam: Absent: calf tenderness, edema, he has no signs of phlebitis. - Neurological Exam Neurological exam: Present: alert, oriented X3, CN II-XII intact. Absent: motor sensory deficit - Psychiatric Psychiatric exam: Present: normal affect - Skin Skin exam: Present: warm, dry Results - Labs CBC & BMP: 05/24/17 04:01 05/28/17 04:28 Assessment and Plan (1) Steroid-induced diabetes mellitus Status: Chronic Assessment and plan: He has been started on insulin because of his steroid-induced diabetes. His glucose is 73 this morning. Current Visit: Yes (2) Shortness of breath on exertion Status: Acute Assessment and plan: Patient does not look short of breath now but he does have some chronic lung disease. He seems to have some anxiety also. His breathing looks stable. He says his breathing is better than it was. We will continue prednisone and have him come back to the office in a month. Current Visit: Yes (3) CAD status post stents Problem details: Xience 3x38mm proximal LAD 12[place]/2016 [place] Status: Chronic Assessment and plan: He has been evaluated by cardiology. He does have some palpitations and arrhythmias. He mainly has a lot of anxiety I think Current Visit: Yes (4) Hypertension Status: Chronic Assessment and plan: His blood pressure apparently has been labile and some of the symptoms may be due to orthostasis. His blood pressure looks stable at present. His symptoms seem to be better now. Current Visit: Yes (5) A-fib Status: Chronic Assessment and plan: He has been in a sinus rhythm with premature beats at present. He seems to be doing better on sotalol. He will continue present therapy for now. 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 He looks like he may have scarring now and was told he had some bronchiectasis. He apparently has had a recent CT of his chest. His lungs sound like has some chronic interstitial lung disease. His chest x- ray looks like it may be chronically abnormal. He seems to be tolerating prednisone okay. At this point I would probably just follow his lungs. He tells me today that his breathing is better than it was 2 years ago. Will have him come back to the office in a month and follow him. Current Visit: Yes Specialty Discharge - Follow Up or Referrals Follow up with: Derrick Davis MD [Physician] -
[2017-05-28] MEDS: DILTIAZEM CD 240 MG CAPSULE PO SCH (09:23)
[2017-05-28] MEDS: LOSARTAN 25 MG TABLET PO SCH (09:24)
[2017-05-28] MEDS: SOTALOL 80 MG TABLET PO SCH (09:24)
[2017-05-28] MEDS: predniSONE 10 MG TABLET PO SCH (09:25)
[2017-05-28] MEDS: CLOPIDOGREL 75 MG TABLET PO SCH (09:25)
[2017-05-28] MEDS: PANTOPRAZOLE 40 MG TABLET PO SCH (09:25)
[2017-05-28] MEDS: APIXABAN 2.5 MG TABLET PO SCH (09:25)
[2017-05-28] MEDS: ESCITALOPRAM 10 MG TABLET PO SCH (09:25)
[2017-05-28] MEDS: POTASSIUM CHLORIDE 10 MEQ TABLET PO SCH (09:25)
[2017-05-28] MEDS: INSULIN GLARGINE 100 UNIT/ML SUBCUT SCH (09:32)
--- NOTE | 2017-05-28 11:57 | Discharge Summary ---
Hospital Course - Hospital Course Hospital Course: Mr. Davison is a pleasant 72-year-old white male with history of CAD status post stents, A. fib on anticoagulation, hypertension, steroid-induced diabetes, hyperlipidemia, history of BOOP, history of recent pneumonia presenting to the ED with progressive shortness of breath and squeezing type substernal chest pain. Cardiology was consulted, patient found to have atrial tachycardia which resolved with sotalol therapy. His cardizem was also increased. Pulmonary also followed throughout his hospital stay due to his history of BOOP. His hospital course was complicated by steroid induced hyperglycemia. He has now reached maximal benefit of inpatient stay and will be discharged to home. He will get a 30 day event monitor and follow-up with Dr. Gomez in 5 weeks. 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 [facility] in [facility] in 5 weeks. --Needs to roll picker 30 day event monitor from [facility] at time of discharge home) Derrick Davis MD [Physician] - 06/30/17 9:00 am (with cxr) Discharge Plan - Discharge Data Disposition: Disch To Home/Self Care Condition at Discharge: Stable Discharge Diet: diabetic diet Activity: increase activity as tolerated Hygiene: no restrictions Weight Bearing at Discharge: weight bear as tolerated Driving: no restrictions Contact your physician if you experience:: fever over 101, Shortness of breath - Discharge Medications New Diltiazem Cd Cap [Cardizem CD] 240 mg PO BID #60 capsule Sotalol [Betapace] 80 mg PO BID #60 tablet Continue Insulin Aspart [NovoLOG] 14 unit SUBCUT AC Potassium Chloride Cap/Tab [K Dur] 10 meq PO QAM Losartan [Cozaar] 12.5 mg PO QAM Furosemide Tab [Lasix Tab] 20 mg PO BID DIURETIC Escitalopram [Lexapro] 20 mg PO DAILY Clopidogrel [Plavix] 75 mg PO QAM Atorvastatin [Lipitor] 40 mg PO BEDTIME Apixaban [Eliquis] 2.5 mg PO BID Insulin Detemir [Levemir] 34 unit SUBCUT QAM Fluticasone/Vilanterol [Breo Ellipta 100-25 Mcg INH] 1 puff INH QAM Albuterol/Ipratropium Neb [Duoneb] 3 ml RESP TX RT BID predniSONE TAB [PredniSONE] 30 mg PO QAM Discontinued Diltiazem Cd Cap [Cardizem CD] 120 mg PO BID - Follow Up or Referral Follow Up: Thad Gomez MD [Physician] - 07/07/17 2:30 pm (Follow up with Dr. Gomez in [facility] in 5 weeks. --Needs to roll picker 30 day event monitor from [facility] at time of discharge home) Derrick Davis MD [Physician] - 06/30/17 9:00 am (with cxr) - Forms/Instructions Instructions: Coronary Artery Disease (GEN), Atrial Fibrillation (GEN), Heart Healthy Diet (GEN), Diabetes Mellitus Type 2 in Adults (DC), Premature Ventricular Contractions (DC), Premature Atrial Contractions (GEN) Exam - Constitutional Vitals: Period Temp Pulse Resp BP Sys/Huddleston Pulse Ox Last 24 Hr 96.6 F-97.8 F 57-96 16-22 112-139/69-85 92-100 General appearance: normal weight - Head Head exam: Present: normocephalic, atraumatic - Eye Eye exam: Present: EOMI Pupils: Present: ELMA - ENT ENT exam: Present: normal exam - Neck Neck exam: Present: normal inspection - Respiratory Respiratory exam: Present: clear to auscultation bilaterally. Absent: rhonchi, wheezes - Cardiovascular Cardiovascular exam: Present: regular rate and rhythm - GI/Abdominal GI/Abdominal exam: Present: normal bowel sounds, soft. Absent: tenderness, rebound - Extremities Exam Extremities exam: Present: normal inspection - Back Exam Back exam: Present: normal inspection - Neurological Exam Neurological exam: Present: alert, oriented X3 - Psychiatric Psychiatric exam: Present: normal affect, normal mood - Skin Skin exam: Present: warm, intact Discharge Results Procedures and tests throughout hospitalization: Pending Orders 05/23/17 13:20 Blood Culture Stat 05/23/17 15:19 Sputum Culture and Gram Stain Stat Labs on day of discharge: Labs from last 24 hours 05/28/17 05/28/17 05/27/17 07:58 04:28 19:32 Sodium 141 Potassium 3.6 Chloride 105 Carbon Dioxide 31 Anion Gap 8.6 BUN 44 H Creatinine 1.10 GFR Calculation 72 BUN/Creatinine Ratio 40.00 H Glucose 121 H POC Glucose 73 L 191 H Calculated Osmolality 292.3 Calcium 8.2 L Magnesium 2.2 05/27/17 05/27/17 15:15 11:54 Sodium Potassium Chloride Carbon Dioxide Anion Gap BUN Creatinine GFR Calculation BUN/Creatinine Ratio Glucose POC Glucose 284 H 275 H Calculated Osmolality Calcium Magnesium Preliminary micro results at discharge 05/23/17 13:20 Blood Culture - Preliminary Blood No growth at 3 days 05/23/17 13:20 Blood Culture - Preliminary Blood No growth at 3 days DS: Provider Date of admission: 05/23/17 14:33 Primary care physician: Cortes Barahona MD Attending physician on admission: Jeramie Hernandez MD Consults: 05/23/17 15:08 Consult to Physician [CONS] Routine Comment: CP, SOB Consulting Provider: Nicole Navarro When should Consulting Provider be notified: Now Consult to Physician [CONS] Routine Comment: LLL pneumonia, H/O BOOP Consulting Provider: Derrick Davis When should Consulting Provider be notified: Now 05/23/17 15:14 Consult to [facility], Educator [CONS] Routine Reason for Motorcycle Police: Diabetes Education 05/23/17 15:37 Consult to Cardiac Rehabilitation [CONS] Routine Reason for Cardiac Rehabilitation: Risk Factor Modification Other Consult Comment: Evaluate and recommend 05/26/17 12:59 Consult to Physical Therapy [CONS] Routine Reason for Physical Therapy: Ambulation Start Therapy: Today Consult Comment: please provide walker Discharging clinician: Juan Luis Suero MD
[2017-05-28 12:25] VITALS: BP 123/74
--- NOTE | 2017-05-28 13:30 | Physician Query Form ---
CLICK EDIT DOCUMENT TO SELECT QUERY ANSWER --> OK --> SIGN Shavon Valles RN, CCDS Certified Clinical Information Technology Account Manager W) [phone] (F) [phone] [email or web address]: Make your selection(s) from the choices in EACH section by typing an "x" and enter comments in the comment section. Please use your independent medical judgment in providing your response. This request does not imply that any particular answer is desired or expected. CLINICAL INDICATORS: (Providers should not edit this section) The medical record indicates that the patient was admitted with "shortness of breath on exertion", History of BOOP, "significant COPD with complicating bronchiectasis and oxygen dependency", "does not chronically use oxygen", "apparently does have home O2" and the patient was treated with oxygen @ 2 liters. ( x) patient was being monitored or treated for chronic respiratory failure ( ) patient was not being monitored or treated for chronic respiratory failure ( ) Other: ( ) Clinically unable to determine: Recognized criteria for respiratory failure PH <7.35 or >7.45 PO2 <60 PCO2 >50 RR >24 O2 Sat <90% on RA or <95% on O2 Use of accessory muscles Unable to speak in full sentences Intubation is not required COMMENTS: PLEASE ALSO DOCUMENT RESPONSE IN PROGRESS NOTES AND/OR DISCHARGE SUMMARY Use of terms such as suspected, likely, or probable (associated with a specific diagnosis that is being evaluated, monitored, or treated as if it exists) are acceptable and can be restated in the discharge summary if not ruled out. MTDD
--- NOTE | 2017-05-28 16:15 | Cardiology Progress Note ---
Fili Wilkins Vanessa RN, am scribing for, and in the presence of, Thad oGmez MD 16 :15. Assessment and Plan - Time spent with patient Time spent with patient: Greater than 30 minutes (1) Chest pain Status: Acute Assessment and plan: 72 year old WM, PMHx HTN, PAF, CAD with PCI of LAD in December 2016 ([place]), BOOP and bronchiectasis with chronic steroid use, steroid induced diabetes. Now admitted for treatment of shortness of breath with some atypical chest tightness , dizziness, palpitations. Carotid doppler US without ICA stenosis. Echo on with preserved LV function, EF 55%, severe pulm HTN with PAP 71 mmHg. Cardiac monitoring reveals sinus rhythm with PACs / PVCs, brief self sustained episodes of atrial tachycardia with HR 150-180. He is symptomatic with this. Much improved now after initiation of sotalol therapy. -Atrial tachycardia resolved with sotalol therapy. Mild baseline bradycardia. No proarrhythmia or significant QTc prolongation noted. No significant bronchospastic issues. Continue Cardizem 240 mg PO twice daily and sotalol 80 mg PO twice daily. -Repoirted history of paroxysmal atrial fib but no EKG or tele monitoring to support this during admission. Continue low dose Eliquis at discharge. Arrhythmia appears to be paroxysmal atrial tach with rapid ventricular response. If no evidence of A. fib during longer term monitoring, stopping anticoagulation is an option. -CAD, status post PCI, and has had demand ischemia due to RVR. Other comorbidities BOOP, recent KATE (resolved) now. His antiarrhythmic options are limited. -Edema. Resolved with Lasix. Continue -Ok for discharge home today. 30 day event monitor at [facility]. Follow up with Dr. Gomez in 5 weeks in clinic. (2) Shortness of breath on exertion Status: Acute Assessment and plan: SEE PLAN OF CARE LISTED ABOVE. (3) A-fib Status: Chronic Assessment and plan: SEE PLAN OF CARE LISTED ABOVE. 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 (5) CAD status post stents Problem details: Xience 3x38mm proximal LAD 12/31/2016 [place] Status: Chronic Assessment and plan: SEE PLAN OF CARE LISTED ABOVE. (6) Chronic anticoagulation Status: Chronic Assessment and plan: SEE PLAN OF CARE LISTED ABOVE. (7) Hypertension Status: Chronic Assessment and plan: SEE PLAN OF CARE LISTED ABOVE. (8) Steroid-induced diabetes mellitus Status: Chronic Assessment and plan: SEE PLAN OF CARE LISTED ABOVE. Cardiology - PN: Subj Interval history: PRIMARY DIRECTOR OF ENTERTAINMENT: MOBILE SUMMARY: Mr. Davison, 72 year old WM, PMHx PAF, CAD now s/p PCI of proximal LAD in December 2016 with drug-eluting stent, boot and bronchiectasis, chronic steroid use, and steroid induced diabetes, hypertension. He has had several hospital admissions for pneumonia, worsening dypsnea on exertion, and hypoxia with oxygen saturations in 80s (improved with rest) since BOOP dx in the last couple years. Admitted to [facility] tele unit on 05/23 with worsening shortness of breath, dizziness, atypical chest pain, and palpitations. No signficant orthostatis. Carotid doppler US negative for carotid stenosis. Echo with preserved EF 55% and severe pulmonary HTN. Since admission, he has had been in sinus rhythm with PAC/PVC, has some paroxysms of atrial fibrillation, and has had some nonsustained atrial tachycardia. Started on sotalol therapy with first dose on the evening of 05/25. Atrial tachycardia much improved, and he has only intermittent mild bradycardia. 2016: Appears to continue making satisfactory progress. Up in bedside chair this morning and is comfortable. No dyspnea at rest. Reports he feels really good today. Some increase in pedal edema, treated with dose of IV Lasix this morning. Sinus rhythm with occ PVC per tele review, HR 60s-70s, intermittent mild bradycardia unchanged. BP 139/76. From a cardiac standpoint, he is doing well and can be discharged home today. Exam (Progress Note) - Constitutional Vitals: Period Temp Pulse Resp BP Sys/Huddleston Pulse Ox Last 24 Hr 96.6 F-97.8 F 57-96 16-22 112-139/69-85 92-100 Exam: General appearance: normal weight, mild tachypnea with conversation but appears to be stable.. no acute distress. pleasant and cooperative. - Head Head exam: Present: normal inspection, normocephalic, atraumatic. Absent: hematoma, laceration - Eye Eye exam: Present: EOMI, muddy sclera, arcus senilis. Absent: conjunctival injection, nystagmus, periorbital swelling, laceration to eyelids Pupils: Present: PERRL. Absent: constricted, dilated, fixed, irregular, unequal - ENT ENT exam: Present: normal exam, normal external ear exam - Neck Neck exam: Present: normal inspection. Absent: lymphadenopathy, meningismus, tenderness, thyromegaly - Respiratory Respiratory exam: Present: scant crackles bilaterally left greater than right- improved from yesterday. Absent: accessory muscle use, chest wall tenderness, rales, wheeze - Cardiovascular Cardiovascular exam: Present: Regular rate and rhythm. Intermittent mild bradycardia absent: carotid bruit, gallop, JVD, rubs - GI/Abdominal GI/Abdominal exam: Present: normal bowel sounds, soft. Absent: distended, firm , guarding, hernia, mass, tenderness, rebound. - Extremities Exam Extremities exam: Present: normal inspection, normal capillary refill, 2+ pedal edema. Absent: calf tenderness - Back Exam Back exam: Present: normal inspection. Absent: muscle spasm, vertebral tenderness - Neurological Exam Neurological exam: Present: alert, oriented X3, grossly intact without resting or intention tremor - Psychiatric Psychiatric exam: Present: normal affect, normal mood. Slightly anxious at times. - Skin Skin exam: Present: Ecchymoses throughout his limbs, neck and torso-improving ( related to previous placement of EKG electrodes). warm, dry, intact. Absent: cyanosis, diaphoretic, rash, urticaria Result/EKG - Labs CBC & BMP: 05/24/17 04:01 05/28/17 04:28 Lab Results: I have reviewed the past 24 hour labs Labs: Laboratory Results - last 24 hr 05/27/17 05/27/17 05/27/17 11:54 15:15 19:32 Sodium Potassium Chloride Carbon Dioxide Anion Gap BUN Creatinine GFR Calculation BUN/Creatinine Ratio Glucose POC Glucose 275 H 284 H 191 H Calculated Osmolality Calcium Magnesium 05/28/17 05/28/17 04:28 07:58 Sodium 141 Potassium 3.6 Chloride 105 Carbon Dioxide 31 Anion Gap 8.6 BUN 44 H Creatinine 1.10 GFR Calculation 72 BUN/Creatinine Ratio 40.00 H Glucose 121 H POC Glucose 73 L Calculated Osmolality 292.3 Calcium 8.2 L Magnesium 2.2 - EKG EKG results: interpreted by me, no acute changes EKG shows: sinus rhythm Quality Measures - VTE Contraindication to Pharmacological VTE Prophylaxis: Already on Theraputic Agent , No Prophylaxis Needed Specialty Discharge - Follow Up or Referrals Follow up with: Thad Gomez MD [Physician] - 07/07/17 2:30 pm (Follow up with Dr[facility] Gomez in [facility] in 5 weeks. --Needs to pick up man 30 day event monitor from [facility] at time of discharge home) Derrick Davis MD [Physician] - 06/30/17 9:00 am (with cxr) Patricia Wilkins Attila, MD, personally performed the services described in this documentation, ascribed by Sonali Penn, TRISH in my presence, and it is both accurate and complete 615 .
== END 2017-05-28 15:06 | disposition home or self-care (01) | DRG 197 ==
LOC: N.ED 13:00 → N.EDINP 14:33 → SUATTDRO 14:33 → N.EDINP 16:35 → N.TELES 16:40
PROVIDERS: ADMIT Internal Medicine; ATTEND Internal Medicine

== ENCOUNTER 2017-06-11 17:41 | Inpatient (IN) ==
--- NOTE | 2017-06-11 17:52 | Order Completion Report ---
See report scanned to EMR
[2017-06-11] MEDS ORDERED: METOPROLOL TARTRATE 25 MG TABLET PO STA (18:25)
[2017-06-11] MEDS ORDERED: NITROGLYCERIN 2% OINT 1 INCH/GM PACK TOP STA (18:25)
[2017-06-11] MEDS ORDERED: ONDANSETRON 4 MG/2 ML VIAL IV STA (18:25)
[2017-06-11] MEDS ORDERED: ALUM/MAG/SIMETH/LIDO VISC 1:1 30 ML BOTTLE PO STA (18:25)
[2017-06-11] MEDS ORDERED: MORPHINE 2 MG/1 ML SYRINGE IV STA (18:25)
[2017-06-11] MEDS ORDERED: ASPIRIN 325 MG TABLET PO STA (18:25)
[2017-06-11] MEDS ORDERED: ALBUTEROL/IPRATROPIUM 3 ML NEB RESP TX STA (18:26)
--- NOTE | 2017-06-11 18:46 | Emergency Department Note ---
Feliberto Wilkins Brittany, am scribing for, and in the presence of, Prashanth oFnseca MD 18:31. Marian Wilkins Charles R, MD, personally performed the services described in this documentation, ascribed by Heike Dao in my presence, and it is both accurate and complete [id number] . Arrival - Arrival Chief Complaint: Chest Pain Stated Complaint: Chest Pain ED Nursing Triage Note: Midsternal chest pain onset x 2 months - pt had a chemical stress test this am - pt chest pain had continued - pt chest pain is worse with excertion - pt was told to come to ER per Dr Gomez office Mode of Arrival: Wheelchair Limitations: No Limitations Source: Patient, Family - History of Present Illness HPI Narrative: This is a 72 y/o white male,who presents to the ED with c/o CP which has been ongoing for the past 2 months. He was seen here earlier this morning for a chemical stress test per Dr. Gomez and was told to come here to the ED for further evaluation. He reports the chest pain is a sharp pain and does not radiate into the neck or the down the arms. He notes the chest pain is worse with exertion. He notes orthopnea as well. His states the pt uses a nebulizer PRN while at home. Pt is on Lasix BID. He states he takes Plavix and Elequis. Pt has no other complaints/pain in the ED at this time. Pt has a PMhx of CHF, HTN, VT, seizures, NIDDM, degenerative disk disease and bronchiethisis. Pt has had neurological surgery, orthopedic surgery, and a cardiac cath with 1 stent. Pt has a family medical Hx of cancer, HTN, diabetes, and heart disease. Pt denies a social Hx. Onset (ago): month(s) (Started 2 months ago) Consistency: constant Severity: moderate Quality: sharp Allergies/Adverse Reactions: Allergies Allergy/AdvReac Type Severity Reaction Status Date / Time No Known Allergies Allergy Unverified 05/23/17 13:09 Home Medications: Home Medications Medication Instructions Recorded Confirmed Type Albuterol/Ipratropium Neb [Duoneb] 3 ml RESP TX RT BID 05/23/17 05/23/17 History Apixaban [Eliquis] 2.5 mg PO BID 05/23/17 05/23/17 History Atorvastatin [Lipitor] 40 mg PO BEDTIME 05/23/17 05/23/17 History Clopidogrel [Plavix] 75 mg PO QAM 05/23/17 05/23/17 History Escitalopram [Lexapro] 20 mg PO DAILY 05/23/17 05/23/17 History Fluticasone/Vilanterol [Breo 1 puff INH QAM 05/23/17 05/23/17 History Ellipta 100-25 Mcg INH] Furosemide Tab [Lasix Tab] 20 mg PO BID DIURETIC 05/23/17 05/23/17 History Insulin Aspart [NovoLOG] 14 unit SUBCUT AC 05/23/17 05/23/17 History Insulin Detemir [Levemir] 34 unit SUBCUT QAM 05/23/17 05/23/17 History Losartan [Cozaar] 12.5 mg PO QAM 05/23/17 05/23/17 History Potassium Chloride Cap/Tab [K Dur] 10 meq PO QAM 05/23/17 05/23/17 History predniSONE TAB [PredniSONE] 30 mg PO QAM 05/23/17 05/23/17 History Diltiazem Cd Cap [Cardizem CD] 240 mg PO BID #60 capsule 05/28/17 Rx Sotalol [Betapace] 80 mg PO BID #60 tablet 05/28/17 Rx Review of System - Review of System 12 point system: reviewed and no additional remarkable complaints except as stated - Review of System Constitutional: Absent: diaphoresis Cardiovascular: Present: chest pain, orthopnea Gastrointestinal: Absent: nausea Medical,Surgical,& Family Hx - Medical History Cardio: History of: CHF, Hypertension, VT, Cardiovascular Problems (a fib, stents in 12/2016) Neurology: History of: Seizures (2014, none since.) Endocrine: History of: Diabetes Mellitus (NIDDM) Respiratory: History of: Respiratory Problems (bronchiethisis) Musculoskeletal: History of: Degenerative Disk Disease - Surgical History Cardiac Surgeries: Sugical HX of: Cardiac Catheterization Neurologic Surgeries: Surgical HX of: Neurologic Surgery (benign mengioma in 2014. no seizures since procedure) Orthopedic Surgeries: Surgical HX of;: Orthopedic Surgery - Family History Family History: Reports;: Family Cancer (prostate cancer), Family Diabetes ( father), Family Heart Disease (mother and father), Family Hypertension (mother) - Social History Smoking Status: Never smoker Frequency of Alcohol Use: None Type of Drug Use: None Exam Vital Signs: Vital Signs Temperature 97.3 F L 06/11/17 17:59 Pulse Rate 89 06/11/17 19:09 Respiratory Rate 20 06/11/17 19:09 Blood Pressure 119/85 06/11/17 19:09 O2 Sat by Pulse Oximetry 100 06/11/17 19:09 - General General appearance: alert, in no apparent distress - Head Head exam: Present: normal inspection - Eye Eye exam: Absent: nystagmus - Neck Neck exam: Present: trachea midline. Absent: tenderness - Chest Chest inspection: Present: symmetric chest wall rise. Absent: tenderness - Respiratory Respiratory exam: Present: rales (Rales at the base ), rhonchi (Bilateral harse rhonic ). Absent: normal lung sounds bilaterally, respiratory distress - Cardiovascular Cardiovascular exam: Present: regular rate, normal rhythm, normal heart sounds. Absent: murmur, rubs, gallop, clicks, JVD - Abdominal Exam Abdominal exam: Present: soft, normal bowel sounds. Absent: tenderness - Rectal Exam Rectal exam: Present: deferred - Extremities Exam Extremities exam: Present: normal capillary refill, pedal edema (+1 pitting edema). Absent: tenderness, calf tenderness - Back Exam Back exam: Present: normal inspection, full ROM. Absent: tenderness, muscle spasm, rashes - Neurological Exam Neurological exam: Present: alert, oriented X3, CN II-XII intact. Absent: motor sensory deficit - Psychiatric Psychiatric exam: Present: normal affect, normal mood. Absent: depressed, agitated, anxious, flat affect - Skin Skin exam: Present: warm, dry, intact, normal color. Absent: rash, cyanosis, diaphoresis Course - Consultations Consultation #1: Dr. Ty will admit patient to the hospital Time: 19:59 Results - Labs CBC & BMP: 06/11/17 18:47 06/11/17 18:47 Lab Results: I have reviewed the patients labs Disposition Clinical Impression: Unstable angina pectoris, Elevated troponin, Shortness of breath on exertion, CAD status post stents, Chronic anticoagulation Case discussed with: patient, patient's family Disposition: Still a Patient Condition: Guarded Time of Disposition: 20:06
[2017-06-11 18:52] LABS: Basophils % 0.5 % (0.0-0.8); Eosinophils % 0.5 % (0.00-10.9); Hematocrit 37.1 VOL% (42.0-52.0); Hemoglobin 12.8 GM/DL (14.0-18.0); Immature Granulocytes % 10.2 %; Immature Granulocytes Absolute 0.42 #; Lymphocytes # 0.4 10*3/uL (1.4-4.0); Lymphocytes % 10.2 % (21.2-54.2); Mean Corpuscular HGB Conc 34.5 GM/DL (32-36); Mean Corpuscular Hemoglobin 31 PG (27-34); Mean Corpuscular Volume 90.7 FL (87-102); Mean Platelet Volume 10.9 FL (9.6-12.0); Monocytes # 0.3 10*3/uL (0.11-0.8); NRBC # 0.04 10*3/uL; Neutrophils % 71.6 % (38.7-73.9); Platelet Count 75 T/CUMM (130-400); Red Blood Count 4.09 MC/CUMM (3.8-5.5); Red Cell Distribution Width 16.8 % (9.3-17.3); White Blood Count 4.1 T/CUMM (4-12)
[2017-06-11] MEDS ORDERED: ONDANSETRON 4 MG/2 ML VIAL ONE (18:52)
[2017-06-11] MEDS ORDERED: METOPROLOL TARTRATE 25 MG TABLET ONE (18:52)
[2017-06-11] MEDS ORDERED: NITROGLYCERIN 2% OINT 1 INCH/GM PACK TOP ONE (18:52)
[2017-06-11] MEDS ORDERED: ASPIRIN 325 MG TABLET ONE (18:53)
[2017-06-11] MEDS ORDERED: ALUM/MAG/SIMETH/LIDO VISC 1:1 30 ML BOTTLE PO ONE (18:53)
[2017-06-11] MEDS ORDERED: MORPHINE 2 MG/1 ML SYRINGE ONE (18:53)
[2017-06-11 18:58] LABS: PT Patient Result 10.9 SECS
--- NOTE | 2017-06-11 19:07 | XRay Report ---
Portable chest Exam date: 06/11/2017 6:25 PM Indication: Shortness of breath, cough Comparison: May 24, 2017 Findings: Cardiomediastinal contours are stable. Left basilar density is unchanged in the interim. No acute osseous abnormalities. Visualized upper abdomen demonstrates no acute pathology. Impression: No change in the left basilar parenchymal density since interval study PROCEDURE INTERPRETED AT [facility] DEPARTMENT OF RADIOLOGY Final Report Signed by: Sebastián Cunningham MD
[2017-06-11 19:24] LABS: Albumin 3.3 G/DL (3.4-5.0); Calcium 8.7 MG/DL (8.5-10.1); Magnesium 2.4 MG/DL (1.8-2.4); Osmolality,Calculated 299.7 MOS/KG (273-304); Total Protein 6.4 G/DL (6.4-8.3)
[2017-06-11] MEDS ORDERED: ALBUTEROL/IPRATROPIUM 3 ML NEB RESP TX PRN (23:17)
[2017-06-11] MEDS ORDERED: MAGNESIUM SULF RIDER 4 GM in PREMIX 1 EACH IV PRN (23:17)
[2017-06-11] MEDS ORDERED: DEXTROSE 50% 25 GM/50 ML SYRINGE IV PRN (23:17)
[2017-06-11] MEDS ORDERED: MAGNESIUM SULF RIDER 2 GM in PREMIX 1 EACH IV PRN (23:17)
[2017-06-11] MEDS ORDERED: MORPHINE 2 MG/1 ML SYRINGE IV PRN (23:17)
[2017-06-11] MEDS ORDERED: POTASSIUM CHLORIDE 20 MEQ TABLET PO PRN (23:17)
[2017-06-11] MEDS ORDERED: GLUCAGON 1 MG VIAL IM PRN (23:17)
[2017-06-12] MEDS: SODIUM CHLORIDE 0.9% 1,000 ML IV SCH (00:06)
[2017-06-12] MEDS: INSULIN REGULAR 100 UNIT/ML SUBCUT SCH ×5 (00:38→21:44)
--- NOTE | 2017-06-12 00:50 | Order Completion Report ---
See report scanned to EMR
[2017-06-12 01:02] LABS: Basophils % 0.3 % (0.0-0.8); Eosinophils % 0.3 % (0.00-10.9); Hematocrit 33.5 VOL% (42.0-52.0); Hemoglobin 11.6 GM/DL (14.0-18.0); Immature Granulocytes % 9.6 %; Lymphocytes # 0.4 10*3/uL (1.4-4.0); Lymphocytes % 12.9 % (21.2-54.2); Mean Corpuscular HGB Conc 34.6 GM/DL (32-36); Mean Corpuscular Hemoglobin 31 PG (27-34); Mean Corpuscular Volume 89.6 FL (87-102); Mean Platelet Volume 10.9 FL (9.6-12.0); Monocytes # 0.3 10*3/uL (0.11-0.8); Monocytes % 9.3 % (1.7-12.7); NRBC # 0.02 10*3/uL; Neutrophils # 2.1 10*3/uL (1.4-7.4); Neutrophils % 67.6 % (38.7-73.9); Platelet Count 70 T/CUMM (130-400); Red Blood Count 3.74 MC/CUMM (3.8-5.5); White Blood Count 3.1 T/CUMM (4-12)
[2017-06-12 01:32] LABS: Anisocytosis 1+; Band Neutrophils 3 % (0-10); Lymphocytes 13 % (20-55); Metamyelocytes 2 %; Myelocytes 4 %; Nucleated Red Blood Cells 1 (0-5); Ovalocytes 1+; Platelet Estimate Decreased; Segmented Neutrophils 75 % (50-85); Total Cells Counted 100
[2017-06-12 01:34] LABS: Bilirubin,Total 1.3 MG/DL (0.2-1.0); Calcium 8.4 MG/DL (8.5-10.1); Magnesium 2.5 MG/DL (1.8-2.4); Osmolality,Calculated 310.5 MOS/KG (273-304); Potassium 4.2 MMOL/L (3.5-5.1); Risk Ratio 2.37; Total Protein 5.3 G/DL (6.4-8.3); VLDL CHOLESTEROL 39.6 MG/DL
--- NOTE | 2017-06-12 08:02 | XRay Report ---
Portable chest Date: 06/12/2017 Clinical history: Coarse breath Comparison: 06/11/2017 Technique: Portable AP sitting chest Findings: Stable cardiomegaly with left chest electronic device. Persistent dilatation and uncoiling of the aorta. Dense pleural-parenchymal findings persist in the left mid to lower lung zone with residual atelectasis at the right lung base. Degenerative changes noted prior anterior cervical fusion. Impression: No significant change in the appearance of the chest when compared to previous exam. PROCEDURE INTERPRETED AT [facility] DEPARTMENT OF RADIOLOGY Final Report Signed by: Dr. Rachelle Duarte
[2017-06-12] MEDS: FUROSEMIDE 20 MG/2 ML VIAL IV SCH ×2 (09:11→17:47)
[2017-06-12] MEDS: DILTIAZEM CD 240 MG CAPSULE PO SCH (09:11)
[2017-06-12] MEDS: PANTOPRAZOLE 40 MG TABLET PO SCH (09:11)
[2017-06-12] MEDS: ACETAMINOPHEN 325 MG TABLET PO PRN (09:54)
--- NOTE | 2017-06-12 11:05 | Cardiology History & Physical ---
Claudette, Sonali Penn RN, am scribing for, and in the presence of, Andrew Mendoza MD 11:00. Assessment and Plan - Time spent with patient Time spent with patient: Greater than 30 minutes (Due to assessment, planning, documentation, medication review) (1) Chest pain Status: Chronic Assessment and plan: Somewhat of a chronic issue. As it is reproducible, he may have a musculoskeletal etiology. EKG and cardiac biomarkers have been benign for acute ischemic finding. He though has recurrent chest pain he has had disease and stenting of his LAD previously. I think to define his coronary anatomy and the status of his status is appropriate. Current Visit: No (2) Troponin I above reference range Status: Chronic Assessment and plan: Patient has chronically elevated troponin, and review of troponin levels this admission compared to previous admission with no significant change, 0.050 range. Current Visit: Yes (3) Shortness of breath on exertion Status: Chronic Assessment and plan: Shortness of breath is certainly multifactorial with history of BOOP, bronchiectasis, and PAT. It has been improved in the past with steroids and inhalers also with treatment of PAT. certainly with his elevated right-sided pressures based on his echocardiogram portal hypertension may be an issue here. Current Visit: Yes (4) Dizziness Status: Acute Assessment and plan: Speaking with patient, dizziness is aggravated with ambulation. It is stable at this time and reports it has not worsened since recent discharge from hospital. Current Visit: Yes (5) CAD status post stents Problem details: Xience 3x38mm proximal LAD 12/31/2016 [place] Status: Chronic Assessment and plan: Patient underwent previous PCI of the LAD in December 2016. No evidence for ACS at this time. Will check CPK and CK-MB. As patient has these ongoing symptoms, it may be beneficial to repeat cardiac catheterization for definitive assessment and rule out progression of coronary artery disease, in-stent restenosis. Continue home medication Plavix. He does not take ASA as he is anticoagulated with Eliquis. Continue ARB, statin, beta-eamon. Current Visit: No (6) Chronic anticoagulation Status: Chronic Assessment and plan: Continue Eliquis for stroke prevention. He is not having any overt s/s bleeding. Current Visit: Yes (7) Hypertension Status: Chronic Assessment and plan: Overall, fairly well controlled blood pressure at this time. Review and continue antihypertensive medications. Monitor and adjust medications accordingly. 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 Patient has a pulmonary follow up appointment scheduled with Dr. Davis in June. Current Visit: No (9) Steroid-induced diabetes mellitus Status: Chronic Current Visit: No (10) PAT (paroxysmal atrial tachycardia) Status: Acute Assessment and plan: Currently controlled with sotalol and Cardizem. Continue these medications and monitor EKG and clinical symptoms. Current Visit: Yes (11) A-fib Status: Chronic Assessment and plan: History of paroxysmal atrial fibrillation. He has not had any atrial fib per EKG and tele last admission or thus far this admit. Continue to monitor for occurrence of atrial fib. Eliquis is continued at this time. Current Visit: No Qualifiers: Atrial fibrillation type: paroxysmal Qualified Code(s): I48.0 - Paroxysmal atrial fibrillation (12) Bronchiectasis Status: Chronic Assessment and plan: No recent coughing or change in sputum production. Continue steroids and Duoneb. Current Visit: Yes (13) Pulmonary hypertension Status: Acute Assessment and plan: This is recently noted on his echocardiogram with the pulmonary artery pressure systolic of 71. He needs right heart catheterization with left heart to evaluate this. Duration though is truly unknown. Current Visit: Yes History of Present Illness Chief complaint: Chest pain 2 months, dizziness History of present illness: MAXILLOFACIAL PATHOLOGY: DR. GOMEZ Mr. Davison, 72-year-old WM, PMHx hypertension, paroxysmal atrial fibrillation, paroxysmal atrial tachycardia, dyslipidemia, seizure disorder (none since 2014) , chronic renal insufficiency. Positive history of CAD and is status post PCI of proximal LAD in December 2016 with drug eluting stent ([place]). He also has BOOP and bronchiectasis, chronic use of steroids, and has steroid induced diabetes. Chronically anticoagulated with Eliquis for stroke prevention. Patient recently hospitalized earlier this month with progressive shortness of breath, dizziness, and squeezing substernal chest pain. Dr. Gomez and pulmonary evaluated during admission. ACS was ruled out, troponins remained trivial and flat. Echo on 05/25 with preserved LVEF 55%, severe pulmonary hypertension with PAP 71 mmHg. Carotid Doppler US without ICA stenosis. BOOP symptoms were improved with steroids and inhalers. However, it also increased episodes of palpitations and was noted to have episodes of symptomatic atrial tachycardia, HR 150s-180s. Sotalol therapy was initiated, Cardizem dosage was increased, and patient was much improved. He was discharged home May 28 with 30 day event monitor and follow-up with Dr. Gomez. He was seen in clinic yesterday and had SPECT perfusion scan. Study showed minimally decreased activity in apex and posterior segments post-rest suggestive of mild ischemia, and patient did not develop any symptoms during testing. Patient's 30 day event monitor was reviewed and had recorded only PACs and PVCs so far, despite her frequent palpitations and lightheadedness. He has complained of ongoing chest pain, nonradiating, sharp/squeezing sensation , at rest and worsened with exertion x 2 months. After leaving [facility] yesterday, apparently he felt this was worsened throughout the day. He called Dr. Gomez's office, and was instructed to report to the ER for evaluation yesterday evening. In the ED, he also reported inability to lie flat. Chest x- ray with left basilar atelectasis and unchanged from x-ray on 05/24. Serial troponin levels are in the 0.053 range, also unchanged from previous admissions. EKG demonstrates sinus rhythm, first-degree AVB, RBBB, PVC/PAC, old anterolateral changes, but no acute ST elevation. Compared to previous EKGs , no significant change. Patient was accepted by cardiology service for further observation and treatment. Patient seen and examined this morning in his room on telemetry. His and daughter are present at bedside with him. He is smiling and appears to be in good spirits. No acute respiratory distress. In speaking with patient, he feels that since discharge home from hospital a couple weeks ago, that his lung and respiratory disease is stable. Denies dyspnea at rest. He does have modest dyspnea with exertion and dizziness. and daughter report since he was discharged home, that he is not very active, saying that he only walks to the bathroom and to the kitchen table for meals. They feel his overall condition has declined in the last couple weeks, and he has become progressively weaker. Patient describes episodes of chest pain as midsternal, sharp/stabbing feeling, sometimes radiating to left apical area. Denies radiation to arm, jaw, neck, back. No associated diaphoresis, presyncope, nausea, or vomiting. He is unsure if chest discomfort he experiences is worsened with exertion. He cannot identify any aggravating or alleviating factors. Denies recent strain, heavy lifting, recent musculoskeletal injury. Appetite has been good at home. Reports he is hungry this morning and is requesting breakfast. and daughter strongly suggesting that patient undergo cardiac catheterization to rule out progressive CAD as etiology for his symptoms. Patient is agreeable, saying that he is "ready to feel better." No overt orthopnea, PND. Reports his palpitations have been stable and nonsymptomatic since discharged. Denies overt bleeding. No significant lower extremity edema upon exam. Labs reviewed. Hematocrit this morning is 33.5% and decreased from 37.1% on admit. Creatinine 1.7 (appears baseline). Glucose greater than 300 this morning. Lipase 426 with total bili 1.3 troponin levels have remained 0.05. Minimally elevated BNP, 265. Fasting lipid panel with elevated triglyceride 198 but otherwise unremarkable. SBP 130-150 mmHg. EKG: Sinus rhythm, first-degree AVB, RBBB, HR 60s. Review of telemetry: PACs and PVCs, no sustained dysrhythmia or PAT, no atrial fibrillation. During physical exam, chest pain is reproducible with palpation and is tender. Patient agreed this is the same discomfort he has been experiencing Patient personally interviewed and examined chart reviewed in the presence of Sonali Penn RN who is acting as scribe. I agree with the patient's evaluation history and plan. This patient prior coronary disease shortness of breath and recent echocardiogram 05/23/2017 with ejection fraction of 55% but had PA pressures estimated at 71 mmHg. With his continued symptomatology he is quite concerned whether he has progressive or recurrent coronary disease. I think this patient would benefit from right left heart catheterization to evaluate [place]'s coronary artery disease but also his right sided pressures. Certainly he may have progressed per hypertension for some etiology. He does have BOOP. I discussed the right and left heart catheterization with the patient and his reviewing medication procedure as well as how would be carried out the risk. I discussed cardiac catheterization and percutaneous coronary intervention with the patient and available family. I reviewed with them the indications for the procedure and the basis of how the procedure would be carried out. I also reviewed with them the risk of the procedure which include but not necessarily limited to access site bleeding, bruising, pain, swelling or vascular injury that may require emergency vascular surgery, blood transfusion, or thrombin injection. Also discussed the possibility of stroke, myocardial infarction, arrhythmia which may require electrocardioversion, and the possibility of dye reaction that would require medical therapy. Also discussed the possibility of coronary artery injury, ruptured, closure or perforation that may require emergency bypass surgery. We also discussed the possibility of from a major complication. They voice understanding and agree to proceed. Home Medications Medication Instructions Recorded Confirmed Type Albuterol/Ipratropium Neb [Duoneb] 3 ml RESP TX RT BID 05/23/17 06/11/17 History Apixaban [Eliquis] 5 mg PO BID 05/23/17 06/11/17 History Atorvastatin [Lipitor] 40 mg PO BEDTIME 05/23/17 06/11/17 History Clopidogrel [Plavix] 75 mg PO QAM 05/23/17 06/11/17 History Escitalopram [Lexapro] 20 mg PO DAILY 05/23/17 06/11/17 History Fluticasone/Vilanterol [Breo 1 puff INH QAM 05/23/17 06/11/17 History Ellipta 100-25 Mcg INH] Furosemide Tab [Lasix Tab] 20 mg PO BID DIURETIC 05/23/17 06/11/17 History Insulin Aspart [NovoLOG] 14 unit SUBCUT AC 05/23/17 06/11/17 History Insulin Detemir [Levemir] 34 unit SUBCUT QAM 05/23/17 06/11/17 History Losartan [Cozaar] 12.5 mg PO QAM 05/23/17 06/11/17 History Potassium Chloride Cap/Tab [K Dur] 10 meq PO QAM 05/23/17 06/11/17 History predniSONE TAB [PredniSONE] 20 mg PO QOTHER DAY 05/23/17 06/11/17 History Sotalol [Betapace] 80 mg PO BID #60 tablet 05/28/17 06/11/17 Rx Diltiazem Cd Cap [Cardizem CD] 240 mg PO DAILY 06/11/17 06/11/17 History predniSONE TAB [PredniSONE] 15 mg PO QOTHER DAY 06/11/17 06/11/17 History Allergies Allergy/AdvReac Type Severity Reaction Status Date / Time No Known Allergies Allergy Unverified 05/23/17 13:09 - Constitutional Constitutional: Present: fatigue, weakness. Absent: anorexia, chills, fever(s) , frequent falls, malaise, stops breathing during sleep, weight gain, weight loss - EENT Eyes: Absent: blurry vision Ears: Absent: decreased hearing Nose, mouth and throat: Absent: dysphagia, nasal congestion, neck pain, sinus pressure, throat swelling, vertigo - Cardiovascular Cardiovascular: Present: chest pain at rest, chest pain with activity, dyspnea on exertion, lightheadedness, palpitations. Absent: diaphoresis, dyspnea, edema , radiating jaw, neck or arm pain, orthopnea, PND - Respiratory Respiratory: Present: dyspnea, dyspnea on exertion. Absent: pain on inspiration , change in phlegm color - Gastrointestinal Gastrointestinal: Absent: abdominal pain, constipation, diarrhea, early satiety , heartburn, hematemesis, hematochezia, melena, nausea, vomiting, jaundice - Genitourinary Genitourinary: Absent: difficulty urinating, dysuria, flank pain, hematuria - Musculoskeletal Musculoskeletal: Present: arthralgias, muscle weakness. Absent: limited range of motion, myalgias - Neurological Neurological: Present: dizziness. Absent: abnormal gait, confusion, frequent falls, syncope, tremor(s) - Psychiatric Psychiatric: Present: anxiety. Absent: confusion, depression - Endocrine Endocrine: Absent: cold intolerance, heat intolerance - Hematologic/Lymphatic Hematologic/Lymphatic: Present: easy bruising. Absent: easy bleeding Medical,Surgical,& Family Hx - Medical History Cardio: History of: Cardiac Dysrhythmia, CHF, CAD, Hypertension, [place] No history of: PVD Psychological: History of: Anxiety Disorders Neurology: History of: Seizures (2015, none since.) No history of: Dementia, TIA Endocrine: History of: Diabetes Mellitus (IDDM) (Steroid-induced), Diabetes Mellitus (NIDDM), Dyslipidemia No history of: Thyroid Disorder Rheumatology: No history of;: Fibromyalgia, Gout Respiratory: History of: Pulmonary Hypertension (Severe), Respiratory Problems ( bronchiethisis, BOOP) No history of: Asthma, COPD, Obstructive Sleep Apnea Renal: History of: Renal Failure (Chronic renal insufficiency) Genitourinary: No history of: Prostate Problems, Genitourinary Cancer Gastrointestinal: No history of: GERD, Gastrointestinal Bleed, Hepatitis Musculoskeletal: History of: Degenerative Disk Disease Hematology: History of: Anemia No history of: Bleeding Problems, Clotting Problems Other: No history of: Cancer, HIV - Surgical History Cardiac Surgeries: Sugical HX of: Cardiac Catheterization Patient Denies: Carotid Endarterectomy, Internal Defibrillator Neurologic Surgeries: Surgical HX of: Neurologic Surgery (benign mengioma in 2015. no seizures since procedure) Orthopedic Surgeries: Surgical HX of;: Orthopedic Surgery - Family History Family History: Reports;: Family Cancer (prostate cancer), Family Diabetes ( father), Family Heart Disease (mother and father), Family Hypertension (mother) - Social History Smoking Status: Never smoker Frequency of Alcohol Use: None Type of Drug Use: None Marital Status: Lives With:: Spouse Functional capacity: uses cane/walker Cardiology Physical Exam - Constitutional Vitals: Vital Signs Temp Pulse Resp BP Pulse Ox 97.2 F L 69 16 132/82 99 06/12/17 04:00 06/12/17 04:00 06/12/17 04:00 06/12/17 04:00 06/12/17 04:00 Intake and Output 06/11/17 06/12/17 06/12/17 22:59 06:59 14:59 Other: # Voids 1 Weight 173 lb 5 oz 173 lb 5 oz General appearance: normal weight, no acute distress, other (No overt tachypnea with conversation) - Head Head exam: Present: normocephalic. Absent: atraumatic, abrasion, hematoma - Eye Eye exam: Present: EOMI, other ([place] sclera, arcus senilis). Absent: periorbital swelling Pupils: Present: ELMA. Absent: dilated, fixed - ENT ENT exam: Present: normal external ear exam - Neck Neck exam: Present: normal inspection. Absent: tenderness - Respiratory Respiratory exam: Present: rales (Minimal bibasilar), other (Crackles throughout ). Absent: accessory muscle use, wheezes - Cardiovascular Cardiovascular exam: Present: regular rate and rhythm. Absent: carotid bruit, JVD, systolic murmur - GI/Abdominal GI/Abdominal exam: Present: normal bowel sounds, soft. Absent: firm, mass, tenderness - Extremities Exam Extremities exam: Present: normal capillary refill, full ROM, other (Ecchymotic bruising to bilateral upper extremities; R/T anticoagulation use). Absent: calf tenderness, edema - Back Exam Back exam: Present: normal inspection. Absent: muscle spasm - Neurological Exam Neurological exam: Present: alert, oriented X3, other (Grossly intact; no resting tremor) - Psychiatric Psychiatric exam: Present: normal affect, anxious. Absent: agitated, flat affect - Skin Skin exam: Present: warm, dry, intact. Absent: abrasion, cyanosis, diaphoretic , rash Result/EKG - Labs CBC & BMP: 06/12/17 00:30 06/12/17 00:30 Lab Results: I have reviewed the past 24 hour labs Labs: Laboratory Results - last 24 hr 06/11/17 06/11/17 06/11/17 18:47 18:47 18:47 WBC RBC Hgb Hct MCV MCH MCHC RDW Plt Count MPV Neut % (Auto) Lymph % (Auto) [place] % (Auto) Eos % (Auto) Baso % (Auto) Neut # (Auto) Lymph # (Auto) [place] # (Auto) Eos # (Auto) Baso # (Auto) Total Counted Immature Gran % Nucleated RBC % Immature Gran # Segmented Neutrophils Band Neutrophils Lymphocytes Monocytes Metamyelocytes Myelocytes Nucleated RBCs Nucleated RBCs # Platelet Estimate Immature Plt Fraction Anisocytosis Ovalocytes INR 1.0 PT Patient/Control Mix 10.9 Sodium 138 Potassium 4.0 Chloride 97 L Carbon Dioxide 35 H Anion Gap 10.0 BUN 62 H Creatinine 1.70 H GFR Calculation 42 BUN/Creatinine Ratio 36.00 H Glucose 218 H POC Glucose Calculated Osmolality 299.7 Calcium 8.7 Magnesium 2.4 Total Bilirubin 1.00 AST 45 H ALT 55 Alkaline Phosphatase 100 Troponin I B-Natriuretic Peptide 270 H Total Protein 6.4 Albumin 3.3 L Globulin 3.1 Albumin/Globulin Ratio 1.0 L Triglycerides Cholesterol LDL Cholesterol VLDL Cholesterol HDL Cholesterol Heart Disease Risk Ratio Lipase 426.0 H 06/11/17 06/11/17 06/11/17 18:47 18:47 20:54 WBC 4.1 RBC 4.09 Hgb 12.8 L Hct 37.1 L MCV 90.7 MCH 31 MCHC 34.5 RDW 16.8 Plt Count 75 L MPV 10.9 Neut % (Auto) 71.6 Lymph % (Auto) 10.2 L [place] % (Auto) 7.0 Eos % (Auto) 0.5 Baso % (Auto) 0.5 Neut # (Auto) 3.0 Lymph # (Auto) 0.4 L [place] # (Auto) 0.3 Eos # (Auto) 0.0 Baso # (Auto) 0.0 Total Counted Immature Gran % 10.2 Nucleated RBC % 1.0 Immature Gran # 0.42 Segmented Neutrophils Band Neutrophils Lymphocytes Monocytes Metamyelocytes Myelocytes Nucleated RBCs Nucleated RBCs # 0.04 Platelet Estimate Immature Plt Fraction 2.3 Anisocytosis Ovalocytes INR PT Patient/Control Mix Sodium Potassium Chloride Carbon Dioxide Anion Gap BUN Creatinine GFR Calculation BUN/Creatinine Ratio Glucose POC Glucose Calculated Osmolality Calcium Magnesium Total Bilirubin AST ALT Alkaline Phosphatase Troponin I 0.053 H 0.052 H B-Natriuretic Peptide Total Protein Albumin Globulin Albumin/Globulin Ratio Triglycerides Cholesterol LDL Cholesterol VLDL Cholesterol HDL Cholesterol Heart Disease Risk Ratio Lipase 06/12/17 06/12/17 06/12/17 00:08 00:30 00:30 WBC 3.1 L RBC 3.74 L Hgb 11.6 L Hct 33.5 L MCV 89.6 MCH 31 MCHC 34.6 RDW 17.0 Plt Count 70 L MPV 10.9 Neut % (Auto) 67.6 Lymph % (Auto) 12.9 L [place] % (Auto) 9.3 Eos % (Auto) 0.3 Baso % (Auto) 0.3 Neut # (Auto) 2.1 Lymph # (Auto) 0.4 L [place] # (Auto) 0.3 Eos # (Auto) 0.0 Baso # (Auto) 0.0 Total Counted 100 Immature Gran % 9.6 Nucleated RBC % 0.6 Immature Gran # 0.30 Segmented Neutrophils 75 Band Neutrophils 3 Lymphocytes 13 L Monocytes 3 Metamyelocytes 2 Myelocytes 4 Nucleated RBCs 1 Nucleated RBCs # 0.02 Platelet Estimate Decreased Immature Plt Fraction 0.0 Anisocytosis 1+ Ovalocytes 1+ INR PT Patient/Control Mix Sodium Potassium Chloride Carbon Dioxide Anion Gap BUN Creatinine GFR Calculation BUN/Creatinine Ratio Glucose POC Glucose 389 H Calculated Osmolality Calcium Magnesium Total Bilirubin AST ALT Alkaline Phosphatase Troponin I 0.053 H B-Natriuretic Peptide Total Protein Albumin Globulin Albumin/Globulin Ratio Triglycerides Cholesterol LDL Cholesterol VLDL Cholesterol HDL Cholesterol Heart Disease Risk Ratio Lipase 06/12/17 06/12/17 06/12/17 00:30 00:30 06:54 WBC RBC Hgb Hct MCV MCH MCHC RDW Plt Count MPV Neut % (Auto) Lymph % (Auto) [place] % (Auto) Eos % (Auto) Baso % (Auto) Neut # (Auto) Lymph # (Auto) [place] # (Auto) Eos # (Auto) Baso # (Auto) Total Counted Immature Gran % Nucleated RBC % Immature Gran # Segmented Neutrophils Band Neutrophils Lymphocytes Monocytes Metamyelocytes Myelocytes Nucleated RBCs Nucleated RBCs # Platelet Estimate Immature Plt Fraction Anisocytosis Ovalocytes INR PT Patient/Control Mix Sodium 139 Potassium 4.2 Chloride 95 L Carbon Dioxide 38 H Anion Gap 10.2 BUN 62 H Creatinine 1.80 H GFR Calculation 39 BUN/Creatinine Ratio 34.00 H Glucose 385 H POC Glucose 170 H Calculated Osmolality 310.5 H Calcium 8.4 L Magnesium 2.5 H Total Bilirubin 1.30 H AST 30 ALT 45 Alkaline Phosphatase 92 Troponin I B-Natriuretic Peptide 265 H Total Protein 5.3 L Albumin 3.0 L Globulin 2.3 Albumin/Globulin Ratio 1.3 Triglycerides 198 H Cholesterol 128 LDL Cholesterol 61.0 VLDL Cholesterol 39.6 HDL Cholesterol 54 Heart Disease Risk Ratio 2.37 Lipase - Diagnostic Findings Procedure: Chest x-ray: image reviewed by me, report reviewed by me - EKG EKG results: interpreted by me, no acute changes Quality Measures - VTE Contraindication to Pharmacological VTE Prophylaxis: Already on Theraputic Agent , No Prophylaxis Needed Reji Wilkins John Timothy, MD, personally performed the services described in this documentation, ascribed by Sonali Penn RN in my presence, and it is both accurate and complete .
[2017-06-12] MEDS ORDERED: DIAZEPAM 5 MG TABLET PO ONE (11:16)
[2017-06-12] MEDS ORDERED: diphenhydrAMINE CAP 50 MG CAPSULE PO ONE (11:16)
[2017-06-12] MEDS ORDERED: diphenhydrAMINE CAP 25 MG CAPSULE ONE (11:18)
[2017-06-12] MEDS ORDERED: MIDAZOLAM 2 MG/2 ML VIAL ONE (11:34)
[2017-06-12] MEDS ORDERED: LIDOCAINE 1% 20 ML VIAL ONE (11:34)
[2017-06-12] MEDS ORDERED: HEPARIN/NACL 0.9% 2 UNITS/ML 1,000 ML IV ONE (11:34)
[2017-06-12] MEDS ORDERED: HYDROmorphone 2 MG/1 ML VIAL ONE (11:38)
[2017-06-12] MEDS ORDERED: HEPARIN/NACL 0.9% 2 UNITS/ML 500 ML IV ONE ×2 (12:11→13:14)
[2017-06-12] MEDS ORDERED: BIVALIRUDIN 250 MG VIAL IV ONE (12:23)
[2017-06-12] MEDS ORDERED: CLOPIDOGREL 300 MG TABLET ONE (12:31)
[2017-06-12] MEDS ORDERED: BIVALIRUDIN 250 MG in SODIUM CHLORIDE 0.9% 50 ML IV SCH (13:00)
[2017-06-12] MEDS: ESCITALOPRAM 10 MG TABLET PO SCH (15:38)
[2017-06-12] MEDS: CLOPIDOGREL 75 MG TABLET PO SCH (15:38)
[2017-06-12] MEDS: ASPIRIN CHEW 81 MG TABLET PO SCH (15:39)
[2017-06-12] MEDS: SOTALOL 80 MG TABLET PO SCH ×2 (15:39→21:51)
[2017-06-12] MEDS: INSULIN LISPRO 100 UNIT/ML SUBCUT SCH (17:46)
[2017-06-12] MEDS ORDERED: ATORVASTATIN 40 MG TABLET PO SCH (21:00)
[2017-06-12] MEDS: APIXABAN 5 MG TABLET PO SCH (21:52)
[2017-06-13] MEDS: ONDANSETRON 4 MG/2 ML VIAL IV PRN ×2 (01:43→08:04)
[2017-06-13] MEDS: SODIUM CHLORIDE 0.9% 1,000 ML IV SCH (01:45)
[2017-06-13] MEDS: APIXABAN 5 MG TABLET PO SCH (08:05)
[2017-06-13] MEDS: SOTALOL 80 MG TABLET PO SCH (08:05)
[2017-06-13] MEDS: DILTIAZEM CD 240 MG CAPSULE PO SCH (08:05)
[2017-06-13] MEDS: CLOPIDOGREL 75 MG TABLET PO SCH (08:05)
[2017-06-13] MEDS: ASPIRIN CHEW 81 MG TABLET PO SCH (08:05)
[2017-06-13] MEDS: PANTOPRAZOLE 40 MG TABLET PO SCH (08:06)
[2017-06-13] MEDS: INSULIN LISPRO 100 UNIT/ML SUBCUT SCH ×2 (08:06→11:55)
[2017-06-13] MEDS: FUROSEMIDE 20 MG/2 ML VIAL IV SCH (08:06)
[2017-06-13] MEDS: ESCITALOPRAM 10 MG TABLET PO SCH (08:06)
[2017-06-13] MEDS: INSULIN REGULAR 100 UNIT/ML SUBCUT SCH ×2 (08:06→11:57)
[2017-06-13] MEDS: ACETAMINOPHEN 325 MG TABLET PO PRN (08:22)
[2017-06-13] MEDS ORDERED: LOSARTAN 25 MG TABLET PO SCH (09:00)
[2017-06-13] MEDS ORDERED: POTASSIUM CHLORIDE 10 MEQ TABLET PO SCH (09:00)
[2017-06-13] MEDS ORDERED: Fluticasone/Vilanterol [Breo Ellipta 100-25 Mcg Inh] 1 PUFF INH SCH (09:00)
[2017-06-13] MEDS ORDERED: INSULIN GLARGINE 100 UNIT/ML SUBCUT SCH (09:00)
[2017-06-13] MEDS ORDERED: predniSONE 10 MG TABLET PO SCH (09:00)
[2017-06-13] MEDS ORDERED: MAGNESIUM HYDROXIDE SUSP 30 ML UDCUP PO PRN (09:19)
[2017-06-13 11:46] VITALS: BP 106/69
--- NOTE | 2017-06-13 12:54 | Discharge Summary ---
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 Davison, 72-year-old WM, PMHx hypertension, paroxysmal atrial fibrillation, paroxysmal atrial tachycardia, dyslipidemia, seizure disorder (none since 2014) , chronic renal insufficiency. Positive history of CAD and is status post PCI of proximal LAD in December 2016 with drug eluting stent ([employer]). He also has BOOP and bronchiectasis, chronic use of steroids, and has steroid induced diabetes. Chronically anticoagulated with Eliquis for stroke prevention. Patient recently hospitalized earlier this month with progressive shortness of breath, dizziness, and squeezing substernal chest pain. Dr. Gomez and pulmonary evaluated during admission. ACS was ruled out, troponins remained trivial and flat. Echo on 05/25 with preserved LVEF 55%, estimated severe pulmonary hypertension with PAP 71 mmHg. Carotid Doppler US without ICA stenosis. BOOP symptoms were improved with steroids and inhalers. However, it also increased episodes of palpitations and was noted to have episodes of symptomatic atrial tachycardia, HR 150s-180s. Sotalol therapy was initiated, Cardizem dosage was increased, and patient was much improved. He was discharged home May 28 with 30 day event monitor and follow-up with Dr. Gomez. He was seen in clinic yesterday and had SPECT perfusion scan. Study showed minimally decreased activity in apex and posterior segments post-rest suggestive of mild ischemia, and patient did not develop any symptoms during testing. Patient's 30 day event monitor was reviewed and had recorded only PACs and PVCs so far, despite her frequent palpitations and lightheadedness. He has complained of ongoing chest pain, nonradiating, sharp/squeezing sensation , at rest and worsened with exertion x 2 months. After leaving [facility] yesterday, apparently he felt this was worsened throughout the day. He called Dr. Gomez's office, and was instructed to report to the ER for evaluation yesterday evening. In the ED, he also reported inability to lie flat. Chest x- ray with left basilar atelectasis and unchanged from x-ray on 05/24. Serial troponin levels are in the 0.053 range, also unchanged from previous admissions. EKG demonstrates sinus rhythm, first-degree AVB, RBBB, PVC/PAC, old anterolateral changes, but no acute ST elevation. Compared to previous EKGs , no significant change. Patient was accepted by cardiology service for further observation and treatment. Because of the patient's persistent symptoms and possible pulmonary hypertension he was taken for right and left heart catheterization. Please see the report for details. His pulmonary artery pressures were around 40 mm systolic. His catheterization showed that his previously placed stents were widely patent. There is a small to moderate-sized diagonal branch that is jailed by 1 of the stents which is stable. His right coronary artery was relatively small, but he he did have a high-grade proximal right coronary artery lesion and this was stented with a 2.25 x 12 mm Synergy drug-eluting stent. There were no problems or complications from the intervention. Overnight the patient has felt well. He reports that his breathing is improved today. He has had no further anginal symptoms. His rhythm has remained stable overnight. He has no new complaints today. I think he is now ready for discharge home and outpatient management. Of note, the patient was on chronic anticoagulation plus Plavix. With his stent during this hospitalization I am resuming aspirin at 81 mg p.o. daily. After a month or so this could probably be discontinued. Discharge Plan - Discharge Data Disposition: Disch To Home/Self Care - Discharge Medications New Aspirin Chew Tab 81 mg PO DAILY tablet Continue Insulin Aspart [NovoLOG] 14 unit SUBCUT AC Potassium Chloride Cap/Tab [K Dur] 10 meq PO QAM Losartan [Cozaar] 12.5 mg PO QAM Furosemide Tab [Lasix Tab] 20 mg PO BID DIURETIC Escitalopram [Lexapro] 20 mg PO DAILY Clopidogrel [Plavix] 75 mg PO QAM Atorvastatin [Lipitor] 40 mg PO BEDTIME Apixaban [Eliquis] 5 mg PO BID predniSONE TAB [PredniSONE] 15 mg PO QOTHER DAY Insulin Detemir [Levemir] 34 unit SUBCUT QAM Fluticasone/Vilanterol [Breo Ellipta 100-25 Mcg INH] 1 puff INH QAM Albuterol/Ipratropium Neb [Duoneb] 3 ml RESP TX RT BID predniSONE TAB [PredniSONE] 20 mg PO QOTHER DAY Sotalol [Betapace] 80 mg PO BID #60 tablet Diltiazem Cd Cap [Cardizem CD] 240 mg PO DAILY - Follow Up or Referral Follow Up: Thad Gomez MD [Physician] - (1-2 weeks with EKG, CBC, BMP, mag) - Forms/Instructions Exam - Constitutional Vitals: Period Temp Pulse Resp BP Sys/[place] Pulse Ox Last 24 Hr 97.3 F-100 F 61-88 16-20 105-143/53-89 96-100 Discharge Results Procedures and tests throughout hospitalization: Pending Orders 06/12/17 10:45 CL heart Routine Labs on day of discharge: Labs from last 24 hours 06/13/17 06/13/17 06/12/17 07:18 01:34 21:57 Glucose POC Glucose 197 H 227 H 65 L 06/12/17 06/12/17 06/12/17 21:43 17:02 16:38 Glucose 408 H POC Glucose 53 L 413 H 06/12/17 16:19 Glucose POC Glucose 417 H DS: Provider Date of admission: 06/11/17 20:07 Primary care physician: Cortes Barahona MD Attending physician on admission: Chris Ty MD Consults: 06/11/17 23:17 Consult to Case Mgmt/Social Srvs [CONS] Routine Reason for Case Mgmt/Social Srvs: Rehab Discharging clinician: Chris Ty MD
--- NOTE | 2017-06-13 14:30 | Order Completion Report ---
See report scanned to EMR
== END 2017-06-13 14:36 | disposition home or self-care (01) | DRG 247 ==
LOC: N.ED 17:41 → N.EDINP 20:22 → N.TELEN 20:26
PROVIDERS: ADMIT Internal Medicine Cardiovascular Disease; ATTEND Internal Medicine Cardiovascular Disease

== ENCOUNTER 2017-06-14 12:21 | Inpatient (IN) ==
[2017-06-14] MEDS ORDERED: KETOROLAC 30 MG/1 ML VIAL IV STA (12:49)
--- NOTE | 2017-06-14 12:54 | Order Completion Report ---
See report scanned to EMR
--- NOTE | 2017-06-14 12:58 | Emergency Department Note ---
Arrival - Arrival Chief Complaint: Dizziness Stated Complaint: syncope ED Nursing Triage Note: Brought in per EMS from home with c/o syncopal episode. Spouse reports she was assisting him to restroom, he became dizzy and had syncopal episode. Fell onto bathroom floor. Abrasion noted to mid-back. AAO x 3 , speech clear. Also c/o left flank pain onset 3 days ago. Last bowel movement today. Was discharged from hospital thursday after having heart catherization with stent placement. Mode of Arrival: Stretcher Limitations: No Limitations Source: Patient Time Seen by Provider: 06/14/17 12:49 - History of Present Illness HPI Narrative: This 72-year-old white male presents 1 day post discharge from cardiac catheterization with stent placement with complaints of syncope. Patient been particular bothered with constipation since discharge and after laxative had several bowel movements throughout the night. Proxy 2 hours the patient had to go again and upon throwing his legs over the bed to get up he turned very pale he made his way with the help of family members the bathroom still very pale until he reached the bathroom and then did a slow motion slide to the floor and per the family was unconscious for 30 minutes. Per the patient would seem that he was more out of it than unconscious. No chest pain, shortness of breath, nausea, vomiting, or diaphoresis was associated with this. Primary symptoms were weakness as well as his ashen appearance. The patient does complain of a mechanical left thoracolumbar pain which is worse with the fall and predates his recent admission admission for his catheterization. Currently he feels back to normal. At this time he is medically stable. Onset (ago): hour(s) (Patient presents 2 hours post incident) Allergies/Adverse Reactions: Allergies Allergy/AdvReac Type Severity Reaction Status Date / Time No Known Allergies Allergy Verified 06/14/17 12:29 Home Medications: Home Medications Medication Instructions Recorded Confirmed Type Albuterol/Ipratropium Neb [Duoneb] 3 ml RESP TX RT BID 05/23/17 06/14/17 History Apixaban [Eliquis] 5 mg PO BID 05/23/17 06/14/17 History Atorvastatin [Lipitor] 40 mg PO BEDTIME 05/23/17 06/14/17 History Clopidogrel [Plavix] 75 mg PO QAM 05/23/17 06/14/17 History Escitalopram [Lexapro] 20 mg PO DAILY 05/23/17 06/14/17 History Fluticasone/Vilanterol [Breo 1 puff INH QAM 05/23/17 06/14/17 History Ellipta 100-25 Mcg INH] Furosemide Tab [Lasix Tab] 20 mg PO BID DIURETIC 05/23/17 06/14/17 History Insulin Aspart [NovoLOG] 14 unit SUBCUT AC 05/23/17 06/14/17 History Insulin Detemir [Levemir] 34 unit SUBCUT QAM 05/23/17 06/14/17 History Losartan [Cozaar] 12.5 mg PO QAM 05/23/17 06/14/17 History Potassium Chloride Cap/Tab [K Dur] 10 meq PO QAM 05/23/17 06/14/17 History predniSONE TAB [PredniSONE] 20 mg PO QOTHER DAY 05/23/17 06/14/17 History Sotalol [Betapace] 80 mg PO BID #60 tablet 05/28/17 06/14/17 Rx Diltiazem Cd Cap [Cardizem CD] 240 mg PO DAILY 06/11/17 06/14/17 History predniSONE TAB [PredniSONE] 15 mg PO QOTHER DAY 06/11/17 06/14/17 History Aspirin Chew Tab 81 mg PO DAILY tablet 06/13/17 06/14/17 Rx Review of System - Review of System 12 point system: reviewed and no additional remarkable complaints except as stated - Review of System Constitutional: Present: as per HPI Respiratory: Present: as per HPI Cardiovascular: Present: as per HPI Gastrointestinal: Present: as per HPI Musculoskeletal: Present: as per HPI Neurological: Present: as per HPI Medical,Surgical,& Family Hx - Medical History Cardio: History of: Cardiac Dysrhythmia, CHF, CAD, Hypertension, [place], Cardiovascular Problems (a fib, stents in 12/2016) No history of: PVD Psychological: History of: Anxiety Disorders Neurology: History of: Seizures (2014, none since.) No history of: Dementia, TIA Endocrine: History of: Diabetes Mellitus (IDDM) (Steroid-induced), Diabetes Mellitus (NIDDM), Dyslipidemia No history of: Thyroid Disorder Rheumatology: No history of;: Fibromyalgia, Gout Respiratory: History of: Pulmonary Hypertension (Severe), Respiratory Problems ( bronchiethisis, BOOP) No history of: Asthma, COPD, Obstructive Sleep Apnea Renal: History of: Renal Failure (Chronic renal insufficiency) Genitourinary: No history of: Prostate Problems, Genitourinary Cancer Gastrointestinal: No history of: GERD, Gastrointestinal Bleed, Hepatitis Musculoskeletal: History of: Degenerative Disk Disease Hematology: History of: Anemia No history of: Bleeding Problems, Clotting Problems Other: No history of: Cancer, HIV - Surgical History Cardiac Surgeries: Sugical HX of: Cardiac Catheterization Patient Denies: Carotid Endarterectomy, Internal Defibrillator Neurologic Surgeries: Surgical HX of: Neurologic Surgery (benign mengioma in 2015. no seizures since procedure) HEENT Surgeries: Patient denies: Carotid Endarterectomy Orthopedic Surgeries: Surgical HX of;: Orthopedic Surgery - Family History Family History: Reports;: Family Cancer (prostate cancer), Family Diabetes ( father), Family Heart Disease (mother and father), Family Hypertension (mother) - Social History Smoking Status: Never smoker Frequency of Alcohol Use: None Type of Drug Use: None Exam Physical Examination: GENERAL: Well developed, well nourished white male in no acute distress. HEENT: Normocephalic. No trauma. Moist mucous membranes. EOMI. PERRLA. ENT NML NECK: Supple. No adenopathy. CARDIAC: Regular. No murmurs. Heart rate 92 CHEST: Clear to auscultation. No respiratory distress. O2 sat 90% ABDOMEN: Soft. Nontender. Active bowel sounds. EXTREMITIES: Abrasion left lower back with thoracolumbar paraspinal muscular spasm and pain which he describes as a catch with movement.. Normal ROM. No pedal edema. SKIN: No diaphoresis. No rash. NEURO: Alert. Oriented 3. Motor, sensory, vibratory intact. No focal deficits. Vital Signs: Vital Signs Temperature 97.9 F 06/14/17 12:21 Pulse Rate 92 H 06/14/17 12:21 Respiratory Rate 18 06/14/17 12:21 Blood Pressure 103/77 06/14/17 12:21 O2 Sat by Pulse Oximetry 88 L 06/14/17 12:21 Course - Reevaluation(s) Reevaluation #1: Discussed with family the need for readmission for further evaluation of multiple situations. - Consultations Consultation #1: Discussed with Dr. Mendoza who felt problems were overwhelmingly medicine base and not cardiac. For this reason he deferred to the hospitalist but would be glad to see in consultation. Consultation #2: Discussed with hospitalist service will admit for further evaluation treatment. Results - Labs CBC & BMP: 06/14/17 13:13 06/14/17 13:14 Labs: I reviewed the laboratory noted the diffuse abnormalities including evidence of azotemia as well as a bump in troponin as well as elevated BMP. - Impressions EKG: Sinus rhythm with first-degree heart block and occasional PAC. Normal IN interval with incomplete right bundle branch block. Probable old inferior infarct diffuse nonspecific ST changes with no acute injury pattern noted. There is no significant change since June 11 EKG. - Diagnostic Findings Procedure: Chest x-ray: image reviewed by me, report reviewed by me (Chronic left chest abnormality described as unchanged in comparison with prior studies) , CT: image reviewed by me, report reviewed by me (Head: Status post craniotomy for meningioma noted, cerebral atrophy noted, no acute injury noted, thoracic spine reveals T3-T4, T4-T5 loss of disc space with diffuse arthritic changes, lumbar spine reveals DJD changes with multilevel fusions.) Disposition Clinical Impression: Syncope with persistent AMS, Chronic left chest abnormality, Left flank mechanical pain, Dehydration, Recent stenting, Borderline cardiac enzymes Case discussed with: patient, patient's family Disposition: Still a Patient Condition: Guarded Time of Disposition: 14:53
[2017-06-14 13:19] LABS: Basophils % 0.2 % (0.0-0.8); Eosinophils # 0.1 10*3/uL (0.0-0.87); Eosinophils % 1.5 % (0.00-10.9); Hematocrit 35.2 VOL% (42.0-52.0); Hemoglobin 12.1 GM/DL (14.0-18.0); Immature Granulocytes % 5.6 %; Immature Granulocytes Absolute 0.23 #; Lymphocytes # 0.4 10*3/uL (1.4-4.0); Lymphocytes % 9.7 % (21.2-54.2); Mean Corpuscular HGB Conc 34.4 GM/DL (32-36); Mean Corpuscular Hemoglobin 31 PG (27-34); Mean Platelet Volume 10.2 FL (9.6-12.0); Monocytes # 0.4 10*3/uL (0.11-0.8); Monocytes % 10.4 % (1.7-12.7); Neutrophils % 72.6 % (38.7-73.9); Platelet Count 88 T/CUMM (130-400); Red Blood Count 3.91 MC/CUMM (3.8-5.5); White Blood Count 4.1 T/CUMM (4-12)
[2017-06-14 13:23] LABS: PT Patient Result 10.6 SECS
[2017-06-14] MEDS ORDERED: KETOROLAC 30 MG/1 ML VIAL ONE (13:31)
[2017-06-14 13:37] LABS: Albumin 3.5 G/DL (3.4-5.0); Bilirubin,Total 1.4 MG/DL (0.2-1.0); Osmolality,Calculated 292.5 MOS/KG (273-304); Potassium 3.4 MMOL/L (3.5-5.1); Total Protein 6.3 G/DL (6.4-8.3)
[2017-06-14 13:53] LABS: Troponin I Only 0.059 NG/ML (0.00-0.045)
--- NOTE | 2017-06-14 13:56 | XRay Report ---
XR chest 1V Indication: Shortness of breath Comparison: 12 June 2017 Findings: The heart and mediastinum are similar in size and configuration. The pulmonary vascularity is normal in caliber. There is increased left lower lung density and effusion similar to previous study. Linear right lower lung density is present similar to previous exam. No other lung infiltrates, effusions, pneumothorax or other abnormality is demonstrated. Impression: No significant changes. PROCEDURE INTERPRETED AT [facility] DEPARTMENT OF RADIOLOGY Final Report Signed by: Dr. Georges Wilder
--- NOTE | 2017-06-14 14:01 | CT Report ---
CT brain Indication: Vertigo, falling injury Comparison: 28 October 2014 Technique: Axial CT imaging of the brain is performed without contrast with 3 mm increments. Findings: No evidence of hemorrhage, mass mass effect midline shift or acute infarct seen. There is moderate diffuse cerebral atrophy. There are areas of decreased density seen within the white matter. Decreased white matter density in the left frontal parietal lobe area on the previous study has resolved. Otherwise the brain parenchyma attenuation and differentiation appears within normal limits. The ventricles and cisterns are normal in caliber. Craniotomy changes are present on the left not present on previous exam. No other cranial or skull base abnormality is identified. Impression: No evidence of acute process. Craniotomy changes on the left not present on previous exam. This CT exam was performed using one or more the following dose reduction techniques: Automated exposure control, adjustment of the MA and/or KV according to patient size, or use of iterative reconstruction technique. PROCEDURE INTERPRETED AT [facility] DEPARTMENT OF RADIOLOGY Final Report Signed by: Dr. Georges Wilder
--- NOTE | 2017-06-14 14:37 | CT Report ---
CT thoracic spine Indication: Back pain after injury Comparison: None available Technique: Axial CT imaging of the thoracic spine is performed without contrast. Computer reformatting is viewed in the sagittal and coronal planes. Findings: No fracture is seen. Alignment of the thoracic spine is within normal limits. Vertebral body heights are normal. Hypertrophic osteophytes and bridging are present at multiple levels. There is loss of disc space and degenerative change at the T3-4 and T4-5 levels. Remaining disc heights appear within normal limits. Cervical fusion is present at C5-C6, incompletely evaluated. Chronic lung changes are present in the left lower lobe with bronchiectasis. No other abnormality is demonstrated. Impression: No evidence of acute injury demonstrated. This CT exam was performed using one or more the following dose reduction techniques: Automated exposure control, adjustment of the MA and/or KV according to patient size, or use of iterative reconstruction technique. PROCEDURE INTERPRETED AT [facility] DEPARTMENT OF RADIOLOGY Final Report Signed by: Dr. Georges Wilder
--- NOTE | 2017-06-14 14:42 | CT Report ---
CT lumbar spine wo con Indication: Back pain after falling injury Comparison: None available Technique: Axial CT imaging of the lumbar spine is performed without contrast. Computer reformatting is viewed in the sagittal and coronal planes. Findings: No fracture is seen. Multilevel fusion has been performed at L1-L5 levels. There is subluxation of L2 relative to L1 and L3 estimated 3 mm. Vertebral body heights are normal. No other abnormality is demonstrated. Impression: No evidence of acute injury demonstrated. This CT exam was performed using one or more the following dose reduction techniques: Automated exposure control, adjustment of the MA and/or KV according to patient size, or use of iterative reconstruction technique. PROCEDURE INTERPRETED AT [facility] DEPARTMENT OF RADIOLOGY Final Report Signed by: Dr. Georges Wilder
--- NOTE | 2017-06-14 16:07 | Hospitalist History & Physical ---
Assessment and Plan - Time spent with patient Time spent with patient: Greater than 30 minutes (1) Syncope Status: Acute Assessment and plan: Head CT is negative for acute process. Patient denies losing consciousness. Patient is mildly anemic at 12.1 and 35.2. Reports no hematemesis or bright red blood per rectum. IV fluids have been started. Check orthostatic vitals. Current Visit: Yes (2) Hypertension Status: Chronic Assessment and plan: Continue home medications. Current Visit: No (3) Chronic anticoagulation Status: Chronic Assessment and plan: Patient is chronically anticoagulated with Eliquis. Cardiology is aware of the patient's return and have been consulted to follow along. Current Visit: No (4) Elevated troponin Status: Acute Assessment and plan: Minimally elevated troponin I. This is expected given the patient's recent left heart catheterization. We will trend cardiac enzymes. 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 Chest x-ray and CT are stable. Dr. Davis has been consulted to assist. Current Visit: No (6) Bronchiectasis Status: Chronic Assessment and plan: Patient is followed by Dr. Davis. He has been consulted, and we appreciate his assistance. Current Visit: No (7) Left flank discomfort Status: Acute Assessment and plan: This could be a neurological finding indicative of chronic joint disease. CT scans of the thoracic and lumbar spine are negative for acute process. Lidoderm patch. Current Visit: Yes (8) Diabetes mellitus Status: Acute Assessment and plan: Serum glucose 158. Hemoglobin A1c. Accu-Cheks before meals at bedtime. Sliding scale insulin per protocol. Of note patient's appetite has decreased as well as his intake. We will cautiously monitor his glucose and insulin administration. Current Visit: Yes History of Present Illness Chief complaint: syncope, left flank pain History of present illness: Mr. Davison is a 72 year old white male with significant cardiac history who presents 1 day s/p discharge from cardiac catheterization with complaints of syncopal episode and left flank pain having onset this morning. The patient and his who is at bedside report recent constipation for which he took laxatives and subsequently suffered several episodes of diarrhea through the night. This morning, the patient experienced a syncopal episode after using the bathroom at which time he "slid to the floor". He denies truly losing consciousness, however the reports he was unresponsive for several minutes. Patient reports a history of hemorrhoids but denies any excessive BRBPR or hematemesis. He further denies headache, blurry vision, chest pain, SOB , pain on inspiration, LE edema, numbness or tingling. He does however complain of left flank pain that radiates around to the umbilicus and is aggravated with movement. Lab work is grossly unremarkable less the thrombocytopenia (88), elevated BUN/Cr ( 49 and 1.60) and hyperglycemia (158). His BNP and troponin are predictably minimally elevated s/p heart catheterization. This case has been discussed with Dr. Funes, ER physician, and Dr. Dove, admitting physician, and the patient will be admitted to the hospital medicine service for further evaluation and treatment. Patient is a FULL CODE. Home medications have been reviewed and reconciled. Home Medications Medication Instructions Recorded Confirmed Type Albuterol/Ipratropium Neb [Duoneb] 3 ml RESP TX RT BID 05/23/17 06/14/17 History Apixaban [Eliquis] 5 mg PO BID 05/23/17 06/14/17 History Atorvastatin [Lipitor] 40 mg PO BEDTIME 05/23/17 06/14/17 History Clopidogrel [Plavix] 75 mg PO QAM 05/23/17 06/14/17 History Escitalopram [Lexapro] 20 mg PO DAILY 05/23/17 06/14/17 History Fluticasone/Vilanterol [Breo 1 puff INH QAM 05/23/17 06/14/17 History Ellipta 100-25 Mcg INH] Furosemide Tab [Lasix Tab] 20 mg PO BID DIURETIC 05/23/17 06/14/17 History Insulin Aspart [NovoLOG] 14 unit SUBCUT AC 05/23/17 06/14/17 History Insulin Detemir [Levemir] 34 unit SUBCUT QAM 05/23/17 06/14/17 History Losartan [Cozaar] 12.5 mg PO QAM 05/23/17 06/14/17 History Potassium Chloride Cap/Tab [K Dur] 10 meq PO QAM 05/23/17 06/14/17 History predniSONE TAB [PredniSONE] 20 mg PO QOTHER DAY 05/23/17 06/14/17 History Sotalol [Betapace] 80 mg PO BID #60 tablet 05/28/17 06/14/17 Rx Diltiazem Cd Cap [Cardizem CD] 240 mg PO DAILY 06/11/17 06/14/17 History predniSONE TAB [PredniSONE] 15 mg PO QOTHER DAY 06/11/17 06/14/17 History Aspirin Chew Tab 81 mg PO DAILY tablet 06/13/17 06/14/17 Rx Allergies Allergy/AdvReac Type Severity Reaction Status Date / Time No Known Allergies Allergy Verified 06/14/17 12:29 Medical,Surgical,& Family Hx - Medical History Cardio: History of: Cardiac Dysrhythmia, CHF, CAD, Hypertension, [place], Cardiovascular Problems (a fib, stents in 12/2016 and 05/2017) No history of: PVD Psychological: History of: Anxiety Disorders Neurology: History of: Seizures (2014, none since.) No history of: Dementia, TIA Endocrine: History of: Diabetes Mellitus (IDDM) (Steroid-induced), Diabetes Mellitus (NIDDM), Dyslipidemia No history of: Thyroid Disorder Rheumatology: No history of;: Fibromyalgia, Gout Respiratory: History of: Pulmonary Hypertension (Severe), Respiratory Problems ( bronchiethisis, BOOP) No history of: Asthma, COPD, Obstructive Sleep Apnea Renal: History of: Renal Failure (Chronic renal insufficiency) Genitourinary: No history of: Prostate Problems, Genitourinary Cancer Gastrointestinal: No history of: GERD, Gastrointestinal Bleed, Hepatitis Musculoskeletal: History of: Degenerative Disk Disease Hematology: History of: Anemia No history of: Bleeding Problems, Clotting Problems Other: No history of: Cancer, HIV - Surgical History Cardiac Surgeries: Sugical HX of: Cardiac Catheterization Patient Denies: Carotid Endarterectomy, Internal Defibrillator Neurologic Surgeries: Surgical HX of: Neurologic Surgery (benign mengioma in 2014. no seizures since procedure) HEENT Surgeries: Patient denies: Carotid Endarterectomy Orthopedic Surgeries: Surgical HX of;: Orthopedic Surgery - Family History Family History: Reports;: Family Cancer (prostate cancer), Family Diabetes ( father), Family Heart Disease (mother and father), Family Hypertension (mother) - Social History Smoking Status: Never smoker Frequency of Alcohol Use: None Type of Drug Use: None Marital Status: Lives With:: Spouse Functional capacity: independent ambulation 12 point system: reviewed and no additional remarkable complaints except as stated Exam - Constitutional Vitals: Period Temp Pulse Resp BP Sys/Huddleston Pulse Ox Last 24 Hr 97.3 F-97.9 F 85-95 17-20 103-153/77-88 88-100 Exam: General appearance: overweight, mild distress - Head Head exam: Present: normocephalic, atraumatic - Eye Eye exam: Present: EOMI. Absent: conjunctival injection, nystagmus Pupils: Present: ELMA, normal accommodation - ENT ENT exam: Present: normal exam, normal external ear exam - Neck Neck exam: Present: normal inspection. Absent: lymphadenopathy, tenderness, thyromegaly - Respiratory Respiratory exam: Present: clear to auscultation bilaterally. Absent: rales, rhonchi, wheezes - Cardiovascular Cardiovascular exam: Present: regular rate and rhythm. Absent: carotid bruit, gallop, rubs - GI/Abdominal GI/Abdominal exam: Present: normal bowel sounds. Absent: ascites, distended, mass - Extremities Exam Extremities exam: Present: normal inspection, normal capillary refill. Absent: edema - Back Exam Back exam: Absent: CVA tenderness (L), CVA tenderness (R) - Neurological Exam Neurological exam: Present: alert, oriented X3, CN II-XII intact, reflexes normal - Psychiatric Psychiatric exam: Present: normal affect, normal mood - Skin Skin exam: Present: normal color, warm, dry Results - Labs CBC & BMP: 06/14/17 13:13 06/14/17 13:14 Lab Results: I have reviewed the past 24 hour labs - Diagnostic Findings Procedure: Chest x-ray: image reviewed by me, report reviewed by me, CT: image reviewed by me, report reviewed by me
[2017-06-14] MEDS ORDERED: GLUCAGON 1 MG VIAL IM PRN (16:33)
[2017-06-14] MEDS ORDERED: DEXTROSE 50% 25 GM/50 ML SYRINGE IV PRN (16:33)
[2017-06-14] MEDS ORDERED: ACETAMINOPHEN 325 MG TABLET PO PRN (16:33)
[2017-06-14 17:36] LABS: Troponin I Only 0.057 NG/ML (0.00-0.045)
[2017-06-14] MEDS ORDERED: LIDOCAINE 5% PATCH TRANSDERM SCH ×3 (18:30→21:00)
--- NOTE | 2017-06-14 19:01 | Cardiology Consult Note ---
Assessment and Plan - Time spent with patient Time spent with patient: Greater than 30 minutes (1) Syncope Status: Acute Assessment and plan: I think this is secondary to deconditioning and all the diarrhea volume loss he had with his laxatives. I do not think this is cardiac. Has a history of having some hypotensive issues may be orthostatic and this certainly been exacerbated by this. Current Visit: Yes (2) CAD status post stents Problem details: Xience 3x38mm proximal LAD 12/31/2016 in [place] Status: Chronic Assessment and plan: Patient was just discharged having stents placed in the RCA. He has had stents placed previously in the LAD in [place]. Stable from this. No anginal symptoms. Current Visit: No (3) A-fib Status: Chronic Assessment and plan: This is stable is in sinus rhythm at the time. Current Visit: No Qualifiers: Atrial fibrillation type: paroxysmal Qualified Code(s): I48.0 - Paroxysmal atrial fibrillation (4) Chronic anticoagulation Status: Chronic Assessment and plan: On Eliquis. Current Visit: No (5) Orthostatic hypotension Status: Acute Assessment and plan: This been a chronic problem. 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 Current Visit: No (7) Left flank discomfort Status: Acute Assessment and plan: This been a recent issue and is noncardiac. Leave this to primary service to evaluate. Current Visit: Yes History of Present Illness - Data of Consult Patient: known to practice within the last 3 years Consult date: 06/14/17 Requesting Physician: Kimberly Dove - Consult Narrative Reason for consult: Coronary artery disease, near syncope History of present illness: Primary evp head of [facility] strategy: Dr. Etienne Mr. Davison is a 72 year old male is actually just discharged yesterday after having some chest pain. Catheterization was carried out during the hospitalization stenting of his RCA. He did well from the standpoint fact states his chest pain resolved and shortness of breath markedly improved. He does have his constipation issues give some information prior to discharge and got home and took some more. Starting yesterday afternoon and through the night he was having watery diarrhea. This morning and getting up out of bed around 1030 felt weak and almost passed out. He is sort of phased out but did not lose full consciousness. He was brought to the emergency room here where he was evaluated. No acute cardiac issue is found. The patient complains of left flank pain that comes and goes and his son and has had this for 2-3 weeks. It seems to exacerbate the last few days. In the emergency room his lab work was fairly unremarkable. He is potassium little low at 3.4 and his troponins were all unremarkable. CBC is unremarkable. His BUN and creatinine are elevated some but they are stable if not improved. CC: Kimberly Dove MD - Home Medications and Allergies Home Medications: Home Medications Medication Instructions Recorded Confirmed Type Albuterol/Ipratropium Neb [Duoneb] 3 ml RESP TX RT BID 05/23/17 06/14/17 History Apixaban [Eliquis] 5 mg PO BID 05/23/17 06/14/17 History Atorvastatin [Lipitor] 40 mg PO BEDTIME 05/23/17 06/14/17 History Clopidogrel [Plavix] 75 mg PO QAM 05/23/17 06/14/17 History Escitalopram [Lexapro] 20 mg PO DAILY 05/23/17 06/14/17 History Fluticasone/Vilanterol [Breo 1 puff INH QAM 05/23/17 06/14/17 History Ellipta 100-25 Mcg INH] Furosemide Tab [Lasix Tab] 20 mg PO BID DIURETIC 05/23/17 06/14/17 History Insulin Aspart [NovoLOG] 14 unit SUBCUT AC 05/23/17 06/14/17 History Insulin Detemir [Levemir] 34 unit SUBCUT QAM 05/23/17 06/14/17 History Losartan [Cozaar] 12.5 mg PO QAM 05/23/17 06/14/17 History Potassium Chloride Cap/Tab [K Dur] 10 meq PO QAM 05/23/17 06/14/17 History predniSONE TAB [PredniSONE] 20 mg PO QOTHER DAY 05/23/17 06/14/17 History Sotalol [Betapace] 80 mg PO BID #60 tablet 05/28/17 06/14/17 Rx Diltiazem Cd Cap [Cardizem CD] 240 mg PO DAILY 06/11/17 06/14/17 History predniSONE TAB [PredniSONE] 15 mg PO QOTHER DAY 06/11/17 06/14/17 History Aspirin Chew Tab 81 mg PO DAILY tablet 06/13/17 06/14/17 Rx Allergies/Adverse Reactions: Allergies Allergy/AdvReac Type Severity Reaction Status Date / Time No Known Allergies Allergy Verified 06/14/17 12:29 Review of systems: He is review of systems are unchanged since his admission earlier this week. Medical,Surgical,& Family Hx - Medical History Cardio: History of: Cardiac Dysrhythmia, CHF, CAD, Hypertension, [place], Cardiovascular Problems (a fib, stents in 12/2016 and 05/2017) No history of: PVD Psychological: History of: Anxiety Disorders Neurology: History of: Seizures (2014, none since.) No history of: Dementia, TIA Endocrine: History of: Diabetes Mellitus (IDDM) (Steroid-induced), Diabetes Mellitus (NIDDM), Dyslipidemia No history of: Thyroid Disorder Rheumatology: No history of;: Fibromyalgia, Gout Respiratory: History of: Pulmonary Hypertension (Severe), Respiratory Problems ( bronchiethisis, BOOP) No history of: Asthma, COPD, Obstructive Sleep Apnea Renal: History of: Renal Failure (Chronic renal insufficiency) Genitourinary: No history of: Prostate Problems, Genitourinary Cancer Gastrointestinal: No history of: GERD, Gastrointestinal Bleed, Hepatitis Musculoskeletal: History of: Degenerative Disk Disease Hematology: History of: Anemia No history of: Bleeding Problems, Clotting Problems Other: No history of: Cancer, HIV - Surgical History Cardiac Surgeries: Sugical HX of: Cardiac Catheterization Patient Denies: Carotid Endarterectomy, Internal Defibrillator Neurologic Surgeries: Surgical HX of: Neurologic Surgery (benign mengioma in 2014. no seizures since procedure) HEENT Surgeries: Patient denies: Carotid Endarterectomy Orthopedic Surgeries: Surgical HX of;: Orthopedic Surgery - Family History Family History: Reports;: Family Cancer (prostate cancer), Family Diabetes ( father), Family Heart Disease (mother and father), Family Hypertension (mother) - Social History Smoking Status: Never smoker Frequency of Alcohol Use: None Type of Drug Use: None Physical Examination Vital Signs Temp Pulse Resp BP Pulse Ox 97.9 F 92 H 18 103/77 88 L 06/14/17 12:21 06/14/17 12:21 06/14/17 12:21 06/14/17 12:21 06/14/17 12:21 Exam: General appearance: Elderly man in no acute distress. He is alert cooperative. Does complain of fleeting pains in his left flank. HEENT: Atraumatic normocephalic. Neck: Supple trachea midline. No bruits no JVD. Lungs: Clear anteriorly and laterally without rales or wheezes. Cardiovascular: Somewhat distant heart sounds but regular rate and rhythm without gross murmur gallop or rub. Radial pulses 2+. Chest wall nontender. Abdomen: Bowel sounds present soft nontender. Musculoskeletal/extremities: Has ecchymosis but no deformities or edema. Right groin cath site stable. Dermatologic: Ecchymoses. Neurologic: Cooperative without focal deficits. Alert oriented 3. Psychiatric: Cognitive function is grossly intact. Result/EKG - Labs CBC & BMP: 06/14/17 13:13 06/14/17 13:14 Lab Results: I have reviewed the past 24 hour labs Labs: Laboratory Results - last 24 hr 06/14/17 06/14/17 06/14/17 13:13 13:13 13:13 WBC 4.1 D RBC 3.91 Hgb 12.1 L Hct 35.2 L MCV 90.0 MCH 31 MCHC 34.4 RDW 17.0 Plt Count 88 L D MPV 10.2 Neut % (Auto) 72.6 Lymph % (Auto) 9.7 L [place] % (Auto) 10.4 Eos % (Auto) 1.5 Baso % (Auto) 0.2 Neut # (Auto) 3.0 Lymph # (Auto) 0.4 L [place] # (Auto) 0.4 Eos # (Auto) 0.1 Baso # (Auto) 0.0 Immature Gran % 5.6 Nucleated RBC % 0.0 Immature Gran # 0.23 Nucleated RBCs # 0.00 Immature Plt Fraction 3.1 INR 1.0 PT Patient/Control Mix 10.6 D-Dimer, Quantitative Sodium Potassium Chloride Carbon Dioxide Anion Gap BUN Creatinine GFR Calculation BUN/Creatinine Ratio Glucose Calculated Osmolality Calcium Total Bilirubin AST ALT Alkaline Phosphatase Total Creatine Kinase CK-MB (CK-2) Troponin I B-Natriuretic Peptide 244 H Total Protein Albumin Globulin Albumin/Globulin Ratio 06/14/17 06/14/17 06/14/17 13:14 13:14 16:48 WBC RBC Hgb Hct MCV MCH MCHC RDW Plt Count MPV Neut % (Auto) Lymph % (Auto) [place] % (Auto) Eos % (Auto) Baso % (Auto) Neut # (Auto) Lymph # (Auto) [place] # (Auto) Eos # (Auto) Baso # (Auto) Immature Gran % Nucleated RBC % Immature Gran # Nucleated RBCs # Immature Plt Fraction INR PT Patient/Control Mix D-Dimer, Quantitative <= 0.5 Sodium 139 Potassium 3.4 L Chloride 92 L Carbon Dioxide 42 H Anion Gap 8.4 BUN 49 H Creatinine 1.60 H GFR Calculation 45 BUN/Creatinine Ratio 30.00 H Glucose 158 H Calculated Osmolality 292.5 Calcium 9.0 Total Bilirubin 1.40 H AST 32 ALT 43 Alkaline Phosphatase 77 Total Creatine Kinase 38 L CK-MB (CK-2) 3.4 Troponin I 0.059 H B-Natriuretic Peptide Total Protein 6.3 L Albumin 3.5 Globulin 2.8 Albumin/Globulin Ratio 1.2 06/14/17 16:48 WBC RBC Hgb Hct MCV MCH MCHC RDW Plt Count MPV Neut % (Auto) Lymph % (Auto) [place] % (Auto) Eos % (Auto) Baso % (Auto) Neut # (Auto) Lymph # (Auto) [place] # (Auto) Eos # (Auto) Baso # (Auto) Immature Gran % Nucleated RBC % Immature Gran # Nucleated RBCs # Immature Plt Fraction INR PT Patient/Control Mix D-Dimer, Quantitative Sodium Potassium Chloride Carbon Dioxide Anion Gap BUN Creatinine GFR Calculation BUN/Creatinine Ratio Glucose Calculated Osmolality Calcium Total Bilirubin AST ALT Alkaline Phosphatase Total Creatine Kinase 32 L CK-MB (CK-2) 2.9 Troponin I 0.057 H B-Natriuretic Peptide Total Protein Albumin Globulin Albumin/Globulin Ratio - Impressions Impressions: ECG with sinus rhythm with nonspecific ST abnormalities. There is first-degree AV block present. Quality Measures - VTE Contraindication to Pharmacological VTE Prophylaxis: Coagulopathy
[2017-06-14] MEDS: ALBUTEROL/IPRATROPIUM 3 ML NEB RESP TX SCH (19:21)
[2017-06-14] MEDS: LIDOCAINE 5% PATCH TRANSDERM SCH (19:56)
[2017-06-14] MEDS: ATORVASTATIN 40 MG TABLET PO SCH (21:00)
[2017-06-14] MEDS: INSULIN GLARGINE 100 UNIT/ML SUBCUT SCH (21:00)
[2017-06-14] MEDS: SOTALOL 80 MG TABLET PO SCH (21:00)
[2017-06-14] MEDS: APIXABAN 5 MG TABLET PO SCH (21:00)
[2017-06-14] MEDS: INSULIN REGULAR 100 UNIT/ML SUBCUT SCH (21:04)
[2017-06-15 00:48] LABS: Basophils % 0.3 % (0.0-0.8); Eosinophils % 1.2 % (0.00-10.9); Hematocrit 31.2 VOL% (42.0-52.0); Immature Granulocytes % 6.6 %; Immature Granulocytes Absolute 0.22 #; Lymphocytes # 0.5 10*3/uL (1.4-4.0); Lymphocytes % 14.1 % (21.2-54.2); Mean Corpuscular HGB Conc 35.3 GM/DL (32-36); Mean Corpuscular Hemoglobin 31 PG (27-34); Mean Corpuscular Volume 88.9 FL (87-102); Mean Platelet Volume 10.2 FL (9.6-12.0); Monocytes # 0.3 10*3/uL (0.11-0.8); Monocytes % 10.2 % (1.7-12.7); NRBC # 0.02 10*3/uL; Neutrophils # 2.3 10*3/uL (1.4-7.4); Neutrophils % 67.6 % (38.7-73.9); Red Blood Count 3.51 MC/CUMM (3.8-5.5); Red Cell Distribution Width 17.2 % (9.3-17.3); White Blood Count 3.3 T/CUMM (4-12)
[2017-06-15 00:50] LABS: Platelet Count 82 T/CUMM (130-400)
[2017-06-15 01:18] LABS: Calcium 8.2 MG/DL (8.5-10.1); Osmolality,Calculated 291.5 MOS/KG (273-304); Potassium 3.4 MMOL/L (3.5-5.1)
[2017-06-15 03:38] LABS: Anisocytosis 2+; Band Neutrophils 10 % (0-10); Basophilic Stippling Slight; Lymphocytes 18 % (20-55); Metamyelocytes 1 %; Myelocytes 2 %; Platelet Estimate Decreased; Segmented Neutrophils 68 % (50-85); Total Cells Counted 100
[2017-06-15] MEDS: ALBUTEROL/IPRATROPIUM 3 ML NEB RESP TX SCH ×2 (07:34→19:19)
[2017-06-15] MEDS: POTASSIUM CHLORIDE 10 MEQ TABLET PO SCH (08:37)
[2017-06-15] MEDS: SOTALOL 80 MG TABLET PO SCH ×2 (08:37→21:31)
[2017-06-15] MEDS: ASPIRIN CHEW 81 MG TABLET PO SCH (08:39)
[2017-06-15] MEDS: DILTIAZEM CD 240 MG CAPSULE PO SCH (08:39)
[2017-06-15] MEDS: CLOPIDOGREL 75 MG TABLET PO SCH (08:39)
[2017-06-15] MEDS: ESCITALOPRAM 10 MG TABLET PO SCH (08:39)
[2017-06-15] MEDS: INSULIN REGULAR 100 UNIT/ML SUBCUT SCH ×4 (08:52→21:32)
[2017-06-15] MEDS: LOSARTAN 25 MG TABLET PO SCH (08:52)
[2017-06-15] MEDS: APIXABAN 5 MG TABLET PO SCH ×2 (08:53→21:31)
[2017-06-15] MEDS ORDERED: LIDOCAINE 5% PATCH TRANSDERM SCH (09:00)
[2017-06-15 09:29] LABS: Troponin I Only 0.057 NG/ML (0.00-0.045)
[2017-06-15] MEDS: LIDOCAINE 5% PATCH TRANSDERM SCH (11:46)
[2017-06-15] MEDS: ONDANSETRON 4 MG/2 ML VIAL IV PRN (11:48)
--- NOTE | 2017-06-15 12:51 | Hospitalist Progress Note ---
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 Admitted 06/14/17 for dizzy and syncopal episode. He states that he has not been dizzy this morning. He denies chest pain or shortness of breath. He reports that his left abdominal/flank pain is worse and the pain medication ([place]) given to him did not help. He c/o left upper abdominal pain that radiates to his back and is tender to palpitation. Discussed with Dr Copeland and ordered CT of abd/pelvis and chest. Will adjust treatment according to results if needed. Exam - Constitutional Vitals: Period Temp Pulse Resp BP Sys/Huddleston Pulse Ox Last 24 Hr 97.3 F-99.1 F 72-97 17-20 89-153/55-88 90-100 General appearance: normal weight, no acute distress - Head Head exam: Present: normal inspection - Eye Eye exam: Present: EOMI Pupils: Present: ELMA - Neck Neck exam: Present: normal inspection. Absent: thyromegaly - Respiratory Respiratory exam: Present: clear to auscultation bilaterally - Cardiovascular Cardiovascular exam: Present: regular rate and rhythm - GI/Abdominal GI/Abdominal exam: Present: normal bowel sounds, tenderness, soft. Absent: firm - Extremities Exam Extremities exam: Present: normal inspection, full ROM. Absent: edema - Neurological Exam Neurological exam: Present: alert, oriented X3 - Psychiatric Psychiatric exam: Present: normal affect, normal mood. Absent: agitated, anxious - Skin Skin exam: Present: normal color, warm, dry Results - Labs CBC & BMP: 06/15/17 00:33 06/15/17 00:33 Lab Results: I have reviewed the past 24 hour labs Quality Measures - VTE Contraindication to Pharmacological VTE Prophylaxis: Coagulopathy Specialty Discharge - Follow Up or Referrals Follow up with: Thad Gomez MD [Physician] - 06/25/17 1:40 pm (EKG, CBC, BMP, MAG)
--- NOTE | 2017-06-15 12:54 | CT Report ---
Exam: CT chest without intravenous contrast Exam date: 06/15/2017 1125 AM Clinical History: 72 years,Male, difficulty breathing, epigastric pain, flank pain, pleural effusion Technique: Axial computed tomography images of the chest without intravenous contrast. The CT exam was performed using one or more of the following dose reduction techniques: Automated exposure control, adjustment of the mA and/or kV according to patient size, or use of iterative reconstruction technique. Contrast: None Comparison: No relevant comparisons Findings: Lungs: Extensive volume loss throughout the left hemithorax with curvilinear density within the left lung base, correlate with prior operative history. Diffuse centrilobular and peribronchial thickening with bronchiectasis and diffuse groundglass opacities. Scattered fibrotic bands throughout the right lung with compensatory hyperexpansion and basilar bronchiectasis. Pleural spaces: No pneumothorax. No significant effusion Heart: [id number] chamber cardiomegaly with extensive coronary atheromatous changes Mediastinum: Leftward shift Bones/joints: Prior lower cervical ACDF, uncomplicated. Soft tissues: Unremarkable Vasculature: Intact Lymph nodes: No pathologic adenopathy Impression: 1. Diffuse volume loss with interlobular and peribronchial thickening, bronchiectasis and groundglass opacities throughout the left lung. Correlate with prior surgical and/or radiation therapy history. Other considerations would include chronic inflammatory process versus atypical interstitial fibrosis Exam: CT abdomen and pelvis with and without intravenous contrast Exam date: 06/15/2017 1125 AM Clinical History: 72 years,Male, difficulty breathing, flank pain, abdominal pain Technique: Axial computed tomography images of the abdomen and pelvis with intravenous contrast. All CT scans at this facility use one or more dose reduction techniques. Automated exposure control, MA/KV adjustment per patient size (including targeted exam Square dose is matched to indication) or iterative reconstruction technique Comparison: No relevant comparisons Findings: Lower thorax: See dedicated chest report. Abdomen: Liver: Unremarkable Gallbladder and bile ducts: Small stones within otherwise normal-appearing gallbladder. Pancreas: Pancreas is normal. Spleen: Enlarged measuring up to 15.0 cm. Adrenals: No adrenal mass. Kidneys and ureters: Mild symmetric cortical atrophy Stomach and bowel: No evidence of acute gastritis, colitis or enteritis. No bowel obstruction. Appendix: No primary or secondary signs to suggest appendicitis. Pelvis: Bladder: Unremarkable Reproductive: Punctate calcifications within the central and right lateral prostate gland. Abdomen and pelvis: Intraperitoneal space: No pneumoperitoneum. No free intraperitoneal fluid Bones/joints: Laminectomies and fusion at L1 S1 with ankylosis of the left sacroiliac joint. Chronic osteitis pubis.. Soft tissues: No mass Vasculature: No aortic aneurysm. There is small hematoma and stranding involving the right common femoral and external iliac artery, likely related to traumatic puncture. No findings to suggest active extravasation. Mild stranding along the portal vein, nonspecific Lymph nodes: No adenopathy Impression: 1. Small hematoma and stranding extending from the right groin along the external iliac vessels likely related to traumatic puncture. No active extravasation. If clinically concerned for pseudoaneurysm or AV fistula, ultrasound is suggested 2. Minimal stranding along the distal portal vein with splenomegaly. Findings are nonspecific, could not exclude portal vein thrombosis given unenhanced study 3. Cholelithiasis 4. Other findings as discussed above PROCEDURE INTERPRETED AT [facility] ([facility]) DEPARTMENT OF RADIOLOGY Final Report Signed by: Sebastián Cunningham MD
[2017-06-15] MEDS: PANTOPRAZOLE 40 MG VIAL IV SCH (14:10)
[2017-06-15] MEDS ORDERED: POTASSIUM CHLORIDE 20 MEQ TABLET PO ONE (14:43)
--- NOTE | 2017-06-15 17:49 | Cardiology Progress Note ---
Fili Wilkins Vanessa RN, am scribing for, and in the presence of, Thad Gomez MD 17 :49. Assessment and Plan - Time spent with patient Time spent with patient: Greater than 30 minutes (1) Syncope Status: Acute Assessment and plan: 72 year old WM, PMHx HTN, HLD, PAT, BOOP, chronic steroid use. Previous hx of CAD with LAD stent in December 2016. Now post PCI of proximal RCA with MIRIAN on 06/12 , preserved EF 55%. RHC showed improvement of pulm HTN, PAP 40 mmHg (previously known PAP 71). Admitted to tele currently after syncopal episode, constipation/ excessive laxative use, orthostasis. EKG: SR with multifocal PVC, PAC, HR 70s -no more syncopal episodes. 30 day event recorder did not record significant tachy- or bradyarrhythmia so far -Epigastric pain- lipase elevated, poss pancreatitis. CT chest/abd shows gallstones, no stranding of pancreas. GI consult pending. -BOOP- pulm following. PHTN -Hypertension- transient borderline low BP but stable -PAF, PAT, PVCs- controlled with sotalol and diltiazem. Arrhythmia is better controlled. Cont Eliquis -CAD- recent PCI. No CP, SOB. Will need to continue Plavix, low dose ASA, statin , BB -syncope- likely orthostatic. He had poor po intake. Cont gentle hydration Current Visit: Yes (2) Orthostatic hypotension Status: Acute Assessment and plan: SEE PLAN OF CARE LISTED ABOVE. Current Visit: No (3) PAT (paroxysmal atrial tachycardia) Status: Acute Assessment and plan: SEE PLAN OF CARE LISTED ABOVE. Current Visit: No (4) Pulmonary hypertension Status: Acute Assessment and plan: SEE PLAN OF CARE LISTED ABOVE. Current Visit: No (5) BOOP (bronchiolitis obliterans with organizing pneumonia) Status: Chronic Assessment and plan: SEE PLAN OF CARE LISTED ABOVE. Current Visit: No (6) CAD status post stents Problem details: Xience 3x38mm proximal LAD 12/31/2016 in [place] Status: Chronic Assessment and plan: SEE PLAN OF CARE LISTED ABOVE. Current Visit: No (7) Chronic anticoagulation Status: Chronic Assessment and plan: SEE PLAN OF CARE LISTED ABOVE. Current Visit: No (8) Hypertension Status: Chronic Assessment and plan: SEE PLAN OF CARE LISTED ABOVE. Current Visit: No (9) Steroid-induced diabetes mellitus Status: Chronic Assessment and plan: SEE PLAN OF CARE LISTED ABOVE. Current Visit: No Cardiology - PN: Subj Interval history: Network Planner: Dr. Gomez SUMMARY: 72-year-old WM, PMHx hypertension, PAF, PAT, HLD, seizure disorder (none since 2014), CRI. Known history of CAD and is status post PCI proximal LAD in 2017 ( mobile). Also has BOOP, chronic steroid use induced diabetes, and severe pulmonary hypertension (PA P 71 mmHg). Patient was recently admitted with dizziness, and complaints of chest pain 2 months. Taken for left and right cardiac catheterization. Cardiac cath showed permanent of pulmonary HTN with PAP 41 mmHg, and he had PCI to proximal RCA with drug-eluting stent 1. Discharged home on June 13, and since then he has had no further chest pain and no shortness of breath. Now admitted again to [facility] telemetry after returning to [facility] ED on 06/14 with recurrent dizziness and syncopal episode (no loss of consciousness). Also had left flank pain, reported recent constipation with excessive laxative use. Cardiology was asked to see for evaluation of syncope with recent coronary stent placement. June: Patient resting quietly this morning. present at bedside. He is not having any chest pain, shortness of breath, or dizziness today. Some LUQ abd pain. CT of abd/pelvis is pending. SBP 100-130 mmHg. Labs reviewed. Elevated lipase 943 ( was 426 on 06/11). H/H stable. Hypokalemic, 3.4. Creatinine 1.6 (baseline). Troponin stable, 0.057. Telemetry: Sinus rhythm, multifocal PVCs, PACs, HR 80s. Continue to monitor and treat patient for syncope, dizziness, PAT, and CAD. Patient currently stable. ROS: -Denies chest pain, dizziness, palpitations -Denies dyspnea, orthopnea, PND -Admits LUQ abd pain. No BRBPR, melena Exam (Progress Note) - Constitutional Vitals: Period Temp Pulse Resp BP Sys/Huddleston Pulse Ox Last 24 Hr 97.3 F-99.1 F 72-97 17-20 89-133/55-84 90-99 Exam: General appearance: Elderly man in no acute distress. Pleasant and cooperative. HEENT: Atraumatic normocephalic. Neck: Supple trachea midline. No bruits. No JVD. Lungs: Clear anteriorly. No wheezing, rhonchi today Cardiovascular: Regular rate and rhythm. No murmur, gallop, rub Chest wall: Nontender. Abdomen: Bowel sounds present. Soft. Nontender. No distention. Musculoskeletal/extremities: Has ecchymosis but no deformities or edema. Right groin cath site stable. Dermatologic: Ecchymoses. Neurologic: Cooperative without focal deficits. Alert oriented 3. No resting tremor. Psychiatric: Cognitive function is grossly intact. Patient is not anxious or depressed. Result/EKG - Labs CBC & BMP: 06/15/17 00:33 06/15/17 00:33 Lab Results: I have reviewed the past 24 hour labs Labs: Laboratory Results - last 24 hr 06/14/17 06/14/17 06/14/17 16:48 16:48 20:49 WBC RBC Hgb Hct MCV MCH MCHC RDW Plt Count MPV Neut % (Auto) Lymph % (Auto) [place] % (Auto) Eos % (Auto) Baso % (Auto) Neut # (Auto) Lymph # (Auto) [place] # (Auto) Eos # (Auto) Baso # (Auto) Total Counted Immature Gran % Nucleated RBC % Immature Gran # Segmented Neutrophils Band Neutrophils Lymphocytes Monocytes Metamyelocytes Myelocytes Nucleated RBCs # Platelet Estimate Immature Plt Fraction Basophilic Stippling Anisocytosis D-Dimer, Quantitative <= 0.5 Sodium Potassium Chloride Carbon Dioxide Anion Gap BUN Creatinine GFR Calculation BUN/Creatinine Ratio Glucose POC Glucose 325 H Hemoglobin A1c Calculated Osmolality Calcium Total Creatine Kinase 32 L CK-MB (CK-2) 2.9 Troponin I 0.057 H Lipase 06/15/17 06/15/17 06/15/17 00:33 00:33 00:33 WBC 3.3 L RBC 3.51 L Hgb 11.0 L Hct 31.2 L MCV 88.9 MCH 31 MCHC 35.3 RDW 17.2 Plt Count 82 L MPV 10.2 Neut % (Auto) 67.6 Lymph % (Auto) 14.1 L [place] % (Auto) 10.2 Eos % (Auto) 1.2 Baso % (Auto) 0.3 Neut # (Auto) 2.3 Lymph # (Auto) 0.5 L [place] # (Auto) 0.3 Eos # (Auto) 0.0 Baso # (Auto) 0.0 Total Counted 100 Immature Gran % 6.6 Nucleated RBC % 0.6 Immature Gran # 0.22 Segmented Neutrophils 68 Band Neutrophils 10 Lymphocytes 18 L Monocytes 1 L Metamyelocytes 1 Myelocytes 2 Nucleated RBCs # 0.02 Platelet Estimate Decreased Immature Plt Fraction 2.6 Basophilic Stippling Slight Anisocytosis 2+ D-Dimer, Quantitative Sodium 139 Potassium 3.4 L Chloride 93 L Carbon Dioxide 39 H Anion Gap 10.4 BUN 53 H Creatinine 1.60 H GFR Calculation 45 BUN/Creatinine Ratio 33.00 H Glucose 124 H POC Glucose Hemoglobin A1c Calculated Osmolality 291.5 Calcium 8.2 L Total Creatine Kinase 33 L CK-MB (CK-2) 2.6 Troponin I 0.060 H Lipase 06/15/17 06/15/17 06/15/17 00:33 00:34 07:23 WBC RBC Hgb Hct MCV MCH MCHC RDW Plt Count MPV Neut % (Auto) Lymph % (Auto) [place] % (Auto) Eos % (Auto) Baso % (Auto) Neut # (Auto) Lymph # (Auto) [place] # (Auto) Eos # (Auto) Baso # (Auto) Total Counted Immature Gran % Nucleated RBC % Immature Gran # Segmented Neutrophils Band Neutrophils Lymphocytes Monocytes Metamyelocytes Myelocytes Nucleated RBCs # Platelet Estimate Immature Plt Fraction Basophilic Stippling Anisocytosis D-Dimer, Quantitative Sodium Potassium Chloride Carbon Dioxide Anion Gap BUN Creatinine GFR Calculation BUN/Creatinine Ratio Glucose POC Glucose 107 H Hemoglobin A1c 7.9 H Calculated Osmolality Calcium Total Creatine Kinase CK-MB (CK-2) Troponin I Lipase 943.0 H D 06/15/17 06/15/17 08:36 12:15 WBC RBC Hgb Hct MCV MCH MCHC RDW Plt Count MPV Neut % (Auto) Lymph % (Auto) [place] % (Auto) Eos % (Auto) Baso % (Auto) Neut # (Auto) Lymph # (Auto) [place] # (Auto) Eos # (Auto) Baso # (Auto) Total Counted Immature Gran % Nucleated RBC % Immature Gran # Segmented Neutrophils Band Neutrophils Lymphocytes Monocytes Metamyelocytes Myelocytes Nucleated RBCs # Platelet Estimate Immature Plt Fraction Basophilic Stippling Anisocytosis D-Dimer, Quantitative Sodium Potassium Chloride Carbon Dioxide Anion Gap BUN Creatinine GFR Calculation BUN/Creatinine Ratio Glucose POC Glucose 157 H Hemoglobin A1c Calculated Osmolality Calcium Total Creatine Kinase 36 L CK-MB (CK-2) 2.0 Troponin I 0.057 H Lipase - Diagnostic Findings Procedure: CT Abdomen and Pelvis: image reviewed by me, report reviewed by me, CT - chest: image reviewed by me, report reviewed by me - EKG EKG results: interpreted by me, no acute changes EKG shows: sinus rhythm Quality Measures - VTE Contraindication to Pharmacological VTE Prophylaxis: Coagulopathy Specialty Discharge - Follow Up or Referrals Follow up with: Thad Gomez MD [Physician] - 06/25/17 1:40 pm (EKG, CBC, BMP, MAG) IPatricia Attila, MD, personally performed the services described in this documentation, ascribed by Sonali Penn RN in my presence, and it is both accurate and complete 749 .
[2017-06-15 18:01] LABS: Troponin I Only 0.044 NG/ML (0.00-0.045)
--- NOTE | 2017-06-15 18:04 | Pulmonology Consult Note ---
Assessment and Plan (1) Abdominal pain Status: Acute Assessment and plan: Patient comes back in with significant abdominal pain and cramping with constipation. He does have gallstones. He is going to be evaluated by GI. Current Visit: Yes (2) Steroid-induced diabetes mellitus Status: Chronic Assessment and plan: The patient's glucoses are being monitored and are little elevated. His hemoglobin A1c level 7.9. Current Visit: No (3) CAD status post stents Problem details: Xience 3x38mm proximal LAD 12/31/2016 in [place] Status: Chronic Assessment and plan: He is not having any angina and no signs of CHF. Current Visit: No (4) Hypertension Status: Chronic Assessment and plan: His blood pressure has been on the low side. Current Visit: No (5) A-fib Status: Chronic Assessment and plan: His heart rate has been better and he has sinus rhythm and PACs now. Current Visit: No Qualifiers: Atrial fibrillation type: paroxysmal Qualified Code(s): I48.0 - Paroxysmal atrial fibrillation (6) Chronic anticoagulation Status: Chronic Assessment and plan: The patient has chronically been on anticoagulation. 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 He has a lot of scarring in his left chest but otherwise he appears to be stable. He says his breathing is doing okay at present. Current Visit: No History of Present Illness Chief complaint: Abdominal pain History of present illness: Mr. Davison is a 72 year old white male that was recently here on telemetry after having palpitations, chest pain and syncope. He has a long history of having BOOP and has been on steroids for the past couple years. Last visit his medicines were adjusted and he was feeling better. He says at home he started having more mid abdominal discomfort and he has had some trouble with constipation. Now he comes in with mainly abdominal pain. He says his breathing is actually been quite stable. He has not been having worsening shortness of breath at all. His chest x-ray and CT look about the same. He has considerable scarring in his left chest. His right lung looks better. Home Medications Medication Instructions Recorded Confirmed Type Albuterol/Ipratropium Neb [Duoneb] 3 ml RESP TX RT BID 05/23/17 06/14/17 History Apixaban [Eliquis] 5 mg PO BID 05/23/17 06/14/17 History Atorvastatin [Lipitor] 40 mg PO BEDTIME 05/23/17 06/14/17 History Clopidogrel [Plavix] 75 mg PO QAM 05/23/17 06/14/17 History Escitalopram [Lexapro] 20 mg PO DAILY 05/23/17 06/14/17 History Fluticasone/Vilanterol [Breo 1 puff INH QAM 05/23/17 06/14/17 History Ellipta 100-25 Mcg INH] Furosemide Tab [Lasix Tab] 20 mg PO BID DIURETIC 05/23/17 06/14/17 History Insulin Aspart [NovoLOG] 14 unit SUBCUT AC 05/23/17 06/14/17 History Insulin Detemir [Levemir] 34 unit SUBCUT QAM 05/23/17 06/14/17 History Losartan [Cozaar] 12.5 mg PO QAM 05/23/17 06/14/17 History Potassium Chloride Cap/Tab [K Dur] 10 meq PO QAM 05/23/17 06/14/17 History predniSONE TAB [PredniSONE] 20 mg PO QOTHER DAY 05/23/17 06/14/17 History Sotalol [Betapace] 80 mg PO BID #60 tablet 05/28/17 06/14/17 Rx Diltiazem Cd Cap [Cardizem CD] 240 mg PO DAILY 06/11/17 06/14/17 History predniSONE TAB [PredniSONE] 15 mg PO QOTHER DAY 06/11/17 06/14/17 History Aspirin Chew Tab 81 mg PO DAILY tablet 06/13/17 06/14/17 Rx Allergies Allergy/AdvReac Type Severity Reaction Status Date / Time No Known Allergies Allergy Verified 06/14/17 12:29 - Constitutional Constitutional: Present: fatigue. Absent: chills, fever(s), weight loss - EENT Eyes: Absent: loss of vision Ears: Absent: decreased hearing Nose, mouth and throat: Absent: dysphagia, headache(s), sinus pressure - Cardiovascular Cardiovascular: Present: dyspnea on exertion. Absent: chest pain at rest, chest pain with activity, dyspnea, palpitations - Respiratory Respiratory: Present: dyspnea. Absent: cough, hemoptysis, wheezing, pain on inspiration - Gastrointestinal Gastrointestinal: Present: abdominal pain, bloating, change in bowel habits, constipation, nausea. Absent: dysphagia - Genitourinary Genitourinary: Absent: difficulty urinating, dysuria, hematuria, urinary frequency - Musculoskeletal Musculoskeletal: Present: muscle weakness. Absent: arthralgias - Neurological Neurological: Absent: abnormal speech, focal weakness, paresthesias - Psychiatric Psychiatric: Present: depression. Absent: anxiety Exam (Pulmonay) H&P - Constitutional Vitals: Period Temp Pulse Resp BP Sys/Huddleston Pulse Ox Last 24 Hr 97.5 F-99.1 F 63-97 18-20 88-133/55-84 90-99 General appearance: normal weight, no acute distress, other (He looks comfortable lying in bed.) - Head Head exam: Present: normal inspection, normocephalic - Eye Eye exam: Present: EOMI. Absent: scleral icterus Pupils: Present: ELMA - ENT ENT exam: Present: normal exam - Neck Neck exam: Absent: lymphadenopathy, thyromegaly - Respiratory Respiratory exam: Present: rales (He has some crackles in his left base). Absent: accessory muscle use, wheezes - Cardiovascular Cardiovascular exam: Present: regular rate and rhythm. Absent: gallop, JVD, systolic murmur - GI/Abdominal GI/Abdominal exam: Present: tenderness (He has mild tenderness in the mid abdomen.), soft. Absent: distended, guarding, organomegaly - Extremities Exam Extremities exam: Present: other (He has some bruising on his extremities). Absent: calf tenderness, edema - Back Exam Back exam: Absent: CVA tenderness (L), CVA tenderness (R) - Neurological Exam Neurological exam: Present: alert, oriented X3 - Psychiatric Psychiatric exam: Present: depressed - Skin Skin exam: Present: warm, dry Medical,Surgical,& Family Hx - Medical History Cardio: History of: Cardiac Dysrhythmia, CHF, CAD, Hypertension, NM, Cardiovascular Problems (a fib, stents in 12/2016 and 05/2017) No history of: PVD Psychological: History of: Anxiety Disorders Neurology: History of: Seizures (2014, none since.) No history of: Dementia, TIA Endocrine: History of: Diabetes Mellitus (IDDM) (Steroid-induced), Diabetes Mellitus (NIDDM), Dyslipidemia No history of: Thyroid Disorder Rheumatology: No history of;: Fibromyalgia, Gout Respiratory: History of: Pulmonary Hypertension (Severe), Respiratory Problems ( bronchiethisis, BOOP) No history of: Asthma, COPD, Obstructive Sleep Apnea Renal: History of: Renal Failure (Chronic renal insufficiency) Genitourinary: No history of: Prostate Problems, Genitourinary Cancer Gastrointestinal: No history of: GERD, Gastrointestinal Bleed, Hepatitis Musculoskeletal: History of: Degenerative Disk Disease Hematology: History of: Anemia No history of: Bleeding Problems, Clotting Problems Other: No history of: Cancer, HIV - Surgical History Cardiac Surgeries: Sugical HX of: Cardiac Catheterization Patient Denies: Carotid Endarterectomy, Internal Defibrillator Neurologic Surgeries: Surgical HX of: Neurologic Surgery (benign mengioma in 2015. no seizures since procedure) HEENT Surgeries: Patient denies: Carotid Endarterectomy Orthopedic Surgeries: Surgical HX of;: Orthopedic Surgery - Family History Family History: Reports;: Family Cancer (prostate cancer), Family Diabetes ( father), Family Heart Disease (mother and father), Family Hypertension (mother) - Social History Smoking Status: Never smoker Frequency of Alcohol Use: None Type of Drug Use: None Results - Labs CBC & BMP: 06/15/17 00:33 06/15/17 00:33 - Diagnostic Findings Procedure: Chest x-ray: image reviewed by me, report reviewed by me (Chest x- ray does show scarring in his left chest that is unchanged from before), CT Abdomen and Pelvis: report reviewed by me (He does have gallstones), CT - chest : image reviewed by me, report reviewed by me (He does have considerable scarring in his left chest.) Quality Measures - VTE Contraindication to Pharmacological VTE Prophylaxis: Coagulopathy Specialty Discharge - Follow Up or Referrals Follow up with: Thad Gomez MD [Physician] - 06/25/17 1:40 pm (EKG, CBC, BMP, MAG)
[2017-06-15] MEDS: ATORVASTATIN 40 MG TABLET PO SCH (21:31)
[2017-06-15] MEDS: INSULIN GLARGINE 100 UNIT/ML SUBCUT SCH (21:32)
[2017-06-15] MEDS: HYDROmorphone 2 MG/1 ML VIAL IV PRN (21:37)
[2017-06-16 06:21] LABS: Basophils % 0.3 % (0.0-0.8); Eosinophils # 0.1 10*3/uL (0.0-0.87); Hematocrit 28.6 VOL% (42.0-52.0); Immature Granulocytes % 5.4 %; Immature Granulocytes Absolute 0.16 #; Lymphocytes # 0.5 10*3/uL (1.4-4.0); Lymphocytes % 17.6 % (21.2-54.2); Mean Corpuscular Hemoglobin 31 PG (27-34); Mean Corpuscular Volume 89.4 FL (87-102); Mean Platelet Volume 10.7 FL (9.6-12.0); Monocytes # 0.3 10*3/uL (0.11-0.8); Monocytes % 11.1 % (1.7-12.7); Neutrophils # 1.9 10*3/uL (1.4-7.4); Neutrophils % 63.6 % (38.7-73.9); Red Cell Distribution Width 17.3 % (9.3-17.3)
[2017-06-16 06:24] LABS: Platelet Count 77 T/CUMM (130-400)
[2017-06-16] MEDS: HYDROmorphone 2 MG/1 ML VIAL IV PRN ×2 (06:37→21:52)
[2017-06-16 06:55] LABS: Band Neutrophils 5 % (0-10); Eosinophils 2 % (0-10); Hypochromasia Slight; Lymphocytes 17 % (20-55); Nucleated Red Blood Cells 1 (0-5); Platelet Estimate Decreased; Segmented Neutrophils 65 % (50-85); Total Cells Counted 100
[2017-06-16 06:56] LABS: Basophilic Stippling Slight; Elliptocytes Few
[2017-06-16 06:59] LABS: Albumin 2.8 G/DL (3.4-5.0); Bilirubin,Total 1.4 MG/DL (0.2-1.0); Calcium 8.2 MG/DL (8.5-10.1); Osmolality,Calculated 287.8 MOS/KG (273-304); Potassium 3.4 MMOL/L (3.5-5.1); Total Protein 5.2 G/DL (6.4-8.3)
[2017-06-16] MEDS: ALBUTEROL/IPRATROPIUM 3 ML NEB RESP TX SCH ×2 (07:25→19:45)
[2017-06-16] MEDS: INSULIN REGULAR 100 UNIT/ML SUBCUT SCH ×4 (08:40→21:49)
[2017-06-16] MEDS: SOTALOL 80 MG TABLET PO SCH ×2 (08:40→21:49)
[2017-06-16] MEDS: ASPIRIN CHEW 81 MG TABLET PO SCH (08:40)
[2017-06-16] MEDS: POTASSIUM CHLORIDE 10 MEQ TABLET PO SCH (08:41)
[2017-06-16] MEDS: LOSARTAN 25 MG TABLET PO SCH (08:41)
[2017-06-16] MEDS: DILTIAZEM CD 240 MG CAPSULE PO SCH (08:41)
[2017-06-16] MEDS: APIXABAN 5 MG TABLET PO SCH ×2 (08:41→21:49)
[2017-06-16] MEDS: ESCITALOPRAM 10 MG TABLET PO SCH (08:41)
[2017-06-16] MEDS: CLOPIDOGREL 75 MG TABLET PO SCH (08:41)
--- NOTE | 2017-06-16 08:41 | Pulmonology Progress Note ---
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 He is now complaining of upper abdominal discomfort. He does have gallstones and slightly elevated bilirubin. He said he was doing okay early in the night but once again awoke with significant upper abdominal discomfort. He has had some problems with constipation also. He says he is not having any chest pain and his breathing is okay. He will be evaluated by GI today. Exam (Progress Note) - Constitutional Vitals: Period Temp Pulse Resp BP Sys/Huddleston Pulse Ox Last 24 Hr 96.2 F-98.0 F 63-112 16-20 88-111/50-70 90-99 Exam: General appearance: normal weight, no acute distress, other (He is having no respiratory distress but is having some abdominal pain.) - Head Head exam: Present: normal inspection, normocephalic - Eye Eye exam: Present: EOMI. Absent: scleral icterus Pupils: Present: ELMA - ENT ENT exam: Present: normal exam - Neck Neck exam: Absent: lymphadenopathy, thyromegaly - Respiratory Respiratory exam: Present: He has some crackles in the left base but no wheezing. - Cardiovascular Cardiovascular exam: Present: regular rate and rhythm. Absent: gallop, JVD, systolic murmur - GI/Abdominal GI/Abdominal exam: Present: tenderness (He has mild tenderness in the mid abdomen.), soft. Absent: distended, guarding, organomegaly - Extremities Exam Extremities exam: Present: other (He has some bruising on his extremities). Absent: calf tenderness, edema - Back Exam Back exam: Absent: CVA tenderness (L), CVA tenderness (R) - Neurological Exam Neurological exam: Present: alert, oriented X3 - Psychiatric Psychiatric exam: Present: depressed - Skin Skin exam: Present: warm, dry Results - Labs CBC & BMP: 06/16/17 05:01 06/16/17 05:01 Labs: His lipase is 900 and his bilirubin was 1.4 Assessment and Plan (1) Abdominal pain Status: Acute Assessment and plan: Patient comes back in with significant abdominal pain and cramping with constipation. He does have gallstones. He did eat some crackers last night and now has abdominal pain again. He may have mild pancreatitis. Current Visit: Yes (2) Steroid-induced diabetes mellitus Status: Chronic Assessment and plan: The patient's glucoses are being monitored and are little elevated. His hemoglobin A1c level 7.9. Current Visit: No (3) CAD status post stents Problem details: [facility]ience 3x38mm proximal [place] 12[place] Status: Chronic Assessment and plan: He is not having any angina and no signs of CHF. Current Visit: No (4) Hypertension Status: Chronic Assessment and plan: His blood pressure has been on the low side. He will continue to be monitored. Current Visit: No (5) A-fib Status: Chronic Assessment and plan: His heart rate has been better and he has sinus rhythm and PACs now. Current Visit: No Qualifiers: Atrial fibrillation type: paroxysmal Qualified Code(s): I48.0 - Paroxysmal atrial fibrillation (6) Chronic anticoagulation Status: Chronic Assessment and plan: The patient has chronically been on anticoagulation. 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 He has a lot of scarring in his left chest but otherwise he appears to be stable. He says his breathing is doing okay at present. We can probably cut back on his steroids. Current Visit: No Specialty Discharge - Follow Up or Referrals Follow up with: Thad Gomez MD [Physician] - 06/25/17 1:40 pm (EKG, CBC, BMP, MAG)
[2017-06-16] MEDS: PANTOPRAZOLE 40 MG VIAL IV SCH (08:43)
[2017-06-16] MEDS ORDERED: PREDNISONE 20 MG PO SCH (09:00)
[2017-06-16] MEDS ORDERED: PREDNISONE 15 MG PO SCH (09:00)
--- NOTE | 2017-06-16 09:40 | Gastrointestinal Consult Note ---
<Yaa Murphy - Last Filed: 06/16/17 09:37> Assessment and Plan (1) Abdominal pain Status: Acute Assessment and plan: 06/16-several month history of abdominal pain worsened over the last several days. Upper quadrants radiating into back. Elevated lipase findings with no correlated CT findings on noncontrasted scan. Cholelithiasis noted with mildly elevated bilirubin at 1.4. Lipase level remains elevated today. Change to n.p.o. status, obtain abdominal ultrasound this afternoon or in the morning. Further plan an addendum to followed by Dr. Brown. Current Visit: Yes History of Present Illness Chief complaint: Abd pain History of present illness: Mr. Davison is a 72 year old male who was admitted to the hospital with complaints of syncope episode as well as left flank pain. Patient's is at bedside and contributes to health history. Patient is a fairly good historian and also contributes to his history information. Patient has a prior history of hypertension, Boop, diabetes. He has had recent stent placement earlier this year as well as last week. Patient states that 4 days ago, following his heart catheterization and stent placement, he was discharged home. He states the day after this, he began not feeling well and reported some near syncopal episodes. He also had onset of some left flank pain with this. Patient felt like this possibly was related to constipation and he took some laxatives which resulted in several episodes of diarrhea throughout that night. When he awoke the next morning, he complained of increased weakness and an episode where he "slid to the floor" with his reporting that he was unresponsive for several minutes. Following this episode, patient had increase in severity in his abdominal pain and was brought to the hospital at that time for further evaluation. Patient states that several months ago he began having some abdominal pain in the upper abdomen that radiated around to his back. He states the pain seem to be affected by ingestion of meals mostly. The pain would come and go wavered in intensity and severity. Over the last several days , patient states the pain became more localized to his left upper quadrant and radiated around to his back. This was associated with nausea however no reported episodes of vomiting. He denies any recent changes in his weight or bowels. Denies any melena or hematochezia. Denies any fever or chills. Denies any prior episodes of pancreatitis or gallbladder disease in the past. Denies a history of alcohol or tobacco use. On admission, patient had a noncontrasted CT of the abdomen with only findings of splenomegaly and cholelithiasis. No pancreatic or gallbladder abnormalities were noted. His admitting lab work showed a mildly elevated bilirubin at 1.4 with normal transaminases. Lipase on admission was 943 and is minimally changed today at 924. He is without leukocytosis and is afebrile. He was noted to have elevated triglycerides at 198 last week. He states that his blood sugars have been somewhat difficult to control due to steroid therapy from his lung disease. Hemoglobin A1c noted at 7.9. Patient did have an upper scope done at [facility] by Dr. Calvillo earlier this year with no acute findings. No reported history of peptic ulcer disease. Last colonoscopy was several years ago. Home Medications Medication Instructions Recorded Confirmed Type Albuterol/Ipratropium Neb [Duoneb] 3 ml RESP TX RT BID 05/23/17 06/14/17 History Apixaban [Eliquis] 5 mg PO BID 05/23/17 06/14/17 History Atorvastatin [Lipitor] 40 mg PO BEDTIME 05/23/17 06/14/17 History Clopidogrel [Plavix] 75 mg PO QAM 05/23/17 06/14/17 History Escitalopram [Lexapro] 20 mg PO DAILY 05/23/17 06/14/17 History Fluticasone/Vilanterol [Breo 1 puff INH QAM 05/23/17 06/14/17 History Ellipta 100-25 Mcg INH] Furosemide Tab [Lasix Tab] 20 mg PO BID DIURETIC 05/23/17 06/14/17 History Insulin Aspart [NovoLOG] 14 unit SUBCUT AC 05/23/17 06/14/17 History Insulin Detemir [Levemir] 34 unit SUBCUT QAM 05/23/17 06/14/17 History Losartan [Cozaar] 12.5 mg PO QAM 05/23/17 06/14/17 History Potassium Chloride Cap/Tab [K Dur] 10 meq PO QAM 05/23/17 06/14/17 History predniSONE TAB [PredniSONE] 20 mg PO QOTHER DAY 05/23/17 06/14/17 History Sotalol [Betapace] 80 mg PO BID #60 tablet 05/28/17 06/14/17 Rx Diltiazem Cd Cap [Cardizem CD] 240 mg PO DAILY 06/11/17 06/14/17 History predniSONE TAB [PredniSONE] 15 mg PO QOTHER DAY 06/11/17 06/14/17 History Aspirin Chew Tab 81 mg PO DAILY tablet 06/13/17 06/14/17 Rx Allergies Allergy/AdvReac Type Severity Reaction Status Date / Time No Known Allergies Allergy Verified 06/14/17 12:29 Medical,Surgical,& Family Hx - Medical History Cardio: History of: Cardiac Dysrhythmia, CHF, CAD, Hypertension, NC, Cardiovascular Problems (a fib, stents in 12/2016 and 05/2017) No history of: PVD Psychological: History of: Anxiety Disorders Neurology: History of: Seizures (2014, none since.) No history of: Dementia, TIA Endocrine: History of: Diabetes Mellitus (IDDM) (Steroid-induced), Diabetes Mellitus (NIDDM), Dyslipidemia No history of: Thyroid Disorder Rheumatology: No history of;: Fibromyalgia, Gout Respiratory: History of: Pulmonary Hypertension (Severe), Respiratory Problems ( bronchiethisis, BOOP) No history of: Asthma, COPD, Obstructive Sleep Apnea Renal: History of: Renal Failure (Chronic renal insufficiency) Genitourinary: No history of: Prostate Problems, Genitourinary Cancer Gastrointestinal: No history of: GERD, Gastrointestinal Bleed, Hepatitis Musculoskeletal: History of: Degenerative Disk Disease Hematology: History of: Anemia No history of: Bleeding Problems, Clotting Problems Other: No history of: Cancer, HIV - Surgical History Cardiac Surgeries: Sugical HX of: Cardiac Catheterization Patient Denies: Carotid Endarterectomy, Internal Defibrillator Neurologic Surgeries: Surgical HX of: Neurologic Surgery (benign mengioma in 2014. no seizures since procedure) HEENT Surgeries: Patient denies: Carotid Endarterectomy Orthopedic Surgeries: Surgical HX of;: Orthopedic Surgery - Family History Family History: Reports;: Family Cancer (prostate cancer), Family Diabetes ( father), Family Heart Disease (mother and father), Family Hypertension (mother) - Social History Smoking Status: Never smoker Frequency of Alcohol Use: None Type of Drug Use: None 12 point system: reviewed and no additional remarkable complaints except as stated - Constitutional Constitutional: Present: as per HPI - EENT Eyes: Present: as per HPI Ears: Present: as per HPI Nose, mouth and throat: Present: as per HPI - Cardiovascular Cardiovascular: Present: as per HPI, dyspnea - Respiratory Respiratory: Present: as per HPI - Gastrointestinal Gastrointestinal: Present: as per HPI, abdominal pain, bloating, nausea - Genitourinary Genitourinary: Present: as per HPI - Musculoskeletal Musculoskeletal: Present: as per HPI - Neurological Neurological: Present: as per HPI - Psychiatric Psychiatric: Present: as per HPI - Endocrine Endocrine: Present: as per HPI - Hematologic/Lymphatic Hematologic/Lymphatic: Present: as per HPI Exam - Constitutional Vitals: Period Temp Pulse Resp BP Sys/Huddleston Pulse Ox Last 24 Hr 96.2 F-98.0 F 63-118 16-20 88-111/50-70 90-99 General appearance: normal weight, no acute distress - Head Head exam: Present: normal inspection, normocephalic - Eye Eye exam: Present: other (Lids and conjunctive are unremarkable). Absent: scleral icterus - ENT ENT exam: Present: normal exam, normal oropharynx - Neck Neck exam: Present: normal inspection - Respiratory Respiratory exam: Present: clear to auscultation bilaterally. Absent: rales, rhonchi, wheezes - Cardiovascular Cardiovascular exam: Present: regular rate and rhythm. Absent: diastolic murmur , JVD, systolic murmur - GI/Abdominal GI/Abdominal exam: Present: normal bowel sounds, tenderness, soft. Absent: ascites, distended, mass, organomegaly - Extremities Exam Extremities exam: Present: normal inspection, full ROM - Back Exam Back exam: Present: normal inspection - Neurological Exam Neurological exam: Present: alert, oriented X3 - Psychiatric Psychiatric exam: Present: normal affect, normal mood - Skin Skin exam: Present: normal color, warm, dry Results - Labs CBC & BMP: 06/16/17 05:01 06/16/17 05:01 Lab Results: I have reviewed the past 24 hour labs Quality Measures - VTE Contraindication to Pharmacological VTE Prophylaxis: Coagulopathy Specialty Discharge - Follow Up or Referrals Follow up with: Thad Gomez MD [Physician] - 06/25/17 1:40 pm (EKG, CBC, BMP, MAG) <Camden Brown - Last Filed: 06/16/17 22:14> History of Present Illness History of present illness: Mr. Davison is a 72 year old male Exam - Constitutional Vitals: Period Temp Pulse Resp BP Sys/Huddleston Pulse Ox Last 24 Hr 96.2 F-97.9 F 65-118 16-18 94-111/50-70 90-97 Results - Labs CBC & BMP: 06/16/17 05:01 06/16/17 05:01
[2017-06-16] MEDS: methylPREDNISolone SOD SUC 40 MG/1 ML VIAL IV SCH ×2 (09:43→21:50)
--- NOTE | 2017-06-16 13:20 | Hospitalist Progress Note ---
Assessment and Plan (1) Pancreatitis Status: Acute Assessment and plan: 1)epigastric and RUQ pain with left abdominal pain yesterday- lipase remains over 900 today. he reports clears don't cause pain the way regular food did. GI to see. RUQ US thsi afternoon. No history of pancreatitis or gallbladder disease. 2)BOOP- well controlled "as good as it's ever been" per patient and his . IV steroids per DR Davis. 3)DM- SSI and Lantus. 4)hypokalemia- replace 5)pancytopenia-stable. denies history of liver disease. await results of US. drug eluting stent a few days ago, so will continue plavix and asa adn eliquis per cardiology. 6)cardiac- new stent a few days ago, paroxysmal afib. Agree syncope likely from orthostasis related to poor intake and dehydration. 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 Today he indidcates that it is primarily in his epigastrium, and occasionally it was on the right side of his abdomen. LEss on the left today. I made him NPO so he can have an US of gallbladder thsi afternoon. GI to see. Dr Davis has changed him to IV steroids- pharmacy has not been giving him his steroids this admit and that might explain his relative hypotension. Exam - Constitutional Vitals: Period Temp Pulse Resp BP Sys/Huddleston Pulse Ox Last 24 Hr 96.2 F-98.0 F 63-118 16-20 88-111/50-70 90-99 General appearance: no acute distress, over weight - Eye Eye exam: Present: EOMI. Absent: scleral icterus - Respiratory Respiratory exam: Present: clear to auscultation bilaterally (decreased breath sounds left>right) - Cardiovascular Cardiovascular exam: Present: regular rate and rhythm - GI/Abdominal GI/Abdominal exam: Present: normal bowel sounds, tenderness (epigastrium, right upper quadrant), soft - Extremities Exam Extremities exam: Absent: edema Results - Labs CBC & BMP: 06/16/17 05:01 06/16/17 05:01 Lab Results: I have reviewed the past 24 hour labs Quality Measures - VTE Contraindication to Pharmacological VTE Prophylaxis: Coagulopathy Specialty Discharge - Follow Up or Referrals Follow up with: Thad Gomez MD [Physician] - 06/25/17 1:40 pm (EKG, CBC, BMP, MAG)
[2017-06-16] MEDS ORDERED: POTASSIUM CHLORIDE 20 MEQ TABLET PO ONE (13:26)
--- NOTE | 2017-06-16 15:37 | Ultrasound Report ---
US abdomen limited Indication: Pancreatitis, cholelithiasis. Comparison: CT chest abdomen pelvis dated June 15, 2017. Technique: Multiple longitudinal and transverse real-time sonographic images of the right upper quadrant of the abdomen are obtained. Findings: The liver measures 14.1 cm and demonstrates normal echogenicity without focal abnormality on submitted images. Small-volume nonshadowing cholelithiasis versus biliary sludge suggested. The gallbladder is nondistended. Gallbladder wall thickness is mildly prominent. Sonographic Correa sign reportedly positive. The common duct measures 0.5 cm in diameter and there is no evidence of significant intrahepatic ductal dilation. Right kidney measures 10.0 cm. Pancreas obscured. IMPRESSION: Small-volume nonshadowing cholelithiasis versus biliary sludge suggested. The gallbladder is nondistended. Gallbladder wall thickness is mildly prominent. Sonographic Correa sign reportedly positive. Consider nuclear medicine hepatobiliary imaging study for further evaluation as findings are suspicious for cholecystitis. Critical Results: Initiated by Arminda at time of dictation. PROCEDURE INTERPRETED AT [facility] DEPARTMENT OF RADIOLOGY Final Report Signed by: Dr Vivek Bhandari
--- NOTE | 2017-06-16 18:08 | Cardiology Progress Note ---
Fili Wilkins Vanessa RN, am scribing for, and in the presence of, Thad Gomez MD 18 :08. Assessment and Plan - Time spent with patient Time spent with patient: Greater than 30 minutes (1) Syncope Status: Resolved Assessment and plan: 72 year old WM, PMHx HTN, HLD, PAT, BOOP, chronic steroid use. Previous hx of CAD with LAD stent in December 2016. Now post PCI of proximal RCA with MIRIAN on 06/12 , preserved EF 55%. RHC showed improvement of pulm HTN, PAP 40 mmHg (previously known PAP 71). Admitted to tele currently after syncopal episode, constipation/ excessive laxative use, orthostasis. EKG: SR with multifocal PVC, PAC, HR 70s -no more syncopal episodes. 30 day event recorder with no significant tachy or bradyarrhythmia thus far. Most likely was orthostatic. -Epigastric pain - lipase elevated, pancreatitis. He also appears to have cholecystitis. -BOOP- Pulmonary has evaluated. This appears to be better recently -Hypertension- remains stable with transiend borderline low BP at times -PAT, PAF, PVCs- well controlled with sotalol and diltiazem. KATE resolved. Arrhythmia and symptoms are controlled. -CAD, recent PCI. No CP, SOB. Continue Eliquis and Plavix, stop aspirin. Unless there is an absolute contraindication, he will need to be continued on anticoagulation and antiplatelet, had recent PCI -He may be moved off telemetry. Cardiac issues seem to be stable, on current medical regimen. -I will sign off, please call with further questions. Follow-up with cardiology in 2 weeks Current Visit: Yes (2) Orthostatic hypotension Status: Acute Assessment and plan: SEE PLAN OF CARE LISTED ABOVE. Current Visit: No (3) PAT (paroxysmal atrial tachycardia) Status: Acute Assessment and plan: SEE PLAN OF CARE LISTED ABOVE. Current Visit: No (4) Pulmonary hypertension Status: Acute Assessment and plan: SEE PLAN OF CARE LISTED ABOVE. Current Visit: No (5) BOOP (bronchiolitis obliterans with organizing pneumonia) Status: Chronic Assessment and plan: SEE PLAN OF CARE LISTED ABOVE. Current Visit: No (6) CAD status post stents Problem details: Xience 3x38mm proximal LAD 12/31/2016 in [place] Status: Chronic Assessment and plan: SEE PLAN OF CARE LISTED ABOVE. Current Visit: No (7) Chronic anticoagulation Status: Chronic Assessment and plan: SEE PLAN OF CARE LISTED ABOVE. Current Visit: No (8) Hypertension Status: Chronic Assessment and plan: SEE PLAN OF CARE LISTED ABOVE. Current Visit: No (9) Steroid-induced diabetes mellitus Status: Chronic Assessment and plan: SEE PLAN OF CARE LISTED ABOVE. Current Visit: No (10) Hypokalemia Status: Acute Assessment and plan: SEE PLAN OF CARE LISTED ABOVE. Current Visit: Yes (11) Abdominal pain Status: Acute Assessment and plan: SEE PLAN OF CARE LISTED ABOVE. 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 Gomez SUMMARY: 72-year-old WM, PMHx hypertension, PAF, PAT, HLD, seizure disorder (none since 2014), CRI. Known history of CAD and is status post PCI proximal LAD in 2017 ( mobile). Also has BOOP, chronic steroid use induced diabetes, and severe pulmonary hypertension (PAP 71 mmHg). Patient was recently admitted with dizziness, and complaints of chest pain 2 months. Taken for left and right cardiac catheterization. Cardiac cath showed improvement of pulmonary HTN with PAP 41 mmHg, and he had PCI to proximal RCA with drug-eluting stent 1. Discharged home on June 13, and since then he has had no further chest pain and no shortness of breath. Now admitted again to [facility] telemetry after returning to [facility] ED on 06/14 with recurrent dizziness and syncopal episode (no loss of consciousness). Also had left flank pain, reported recent constipation with excessive laxative use. Cardiology was asked to see for evaluation of syncope with recent coronary stent placement. June: Patient is sitting up on side of bed this morning. He is no acute respiratory distress. is present at bedside. Patient reports he slept fairly well most of the night, but woke up due to some recurring left LUQ abd pain with radiation into back. No chest pain, dyspnea, or dizziness today. SBP 95-110 mmHg , stable. Tele: sinus rhythm, HR 70s, PVC/PAC. No overt PAT. Labs reviewed. Pancytopenia noted. H&H remained stable. Mild hypokalemia, 3.4. Continued mild elevation total bili 1.4. Lipase remains elevated 943. GI consult pending today. No overt bleeding. Continue to monitor and treat patient for dizziness, PAT, CAD. These are currently stable. ROS: -denies chest pain or tightness, palpitations -denies dyspnea, orthopnea -admits LUQ abd pain, no N/V, no overt bleeding or melena Exam (Progress Note) - Constitutional Vitals: Period Temp Pulse Resp BP Sys/Huddleston Pulse Ox Last 24 Hr 96.2 F-98.0 F 63-118 16-20 88-111/50-70 90-99 Exam: General appearance: Normal weight. No acute distress. Pleasant and cooperative. HEENT: Atraumatic normocephalic. Neck: Supple trachea midline. No bruits. No JVD. Lungs: Lungs CTA.. No wheezing, rhonchi today. Not requiring supplemental oxygen. Cardiovascular: Regular rate and rhythm. No murmur, gallop, rub Chest wall: Nontender. Abdomen: Bowel sounds present. Soft. Nontender. No distention. Other: Intermittent LUQ abd pain Musculoskeletal/extremities: Has ecchymosis but no deformities or edema. Dermatologic: Ecchymoses of upper ext's, stable. Neurologic: Cooperative without focal deficits. Alert oriented 3. No resting tremor. Psychiatric: Cognitive function is grossly intact. Patient is not anxious or depressed. Result/EKG - Labs CBC & BMP: 06/16/17 05:01 06/16/17 05:01 Lab Results: I have reviewed the past 24 hour labs Labs: Laboratory Results - last 24 hr 06/15/17 06/15/17 06/15/17 12:15 15:17 16:42 WBC RBC Hgb Hct MCV MCH MCHC RDW Plt Count MPV Neut % (Auto) Lymph % (Auto) [place] % (Auto) Eos % (Auto) Baso % (Auto) Neut # (Auto) Lymph # (Auto) [place] # (Auto) Eos # (Auto) Baso # (Auto) Total Counted Immature Gran % Nucleated RBC % Immature Gran # Segmented Neutrophils Band Neutrophils Lymphocytes Monocytes Eosinophils Nucleated RBCs Nucleated RBCs # Platelet Estimate Immature Plt Fraction Hypochromasia Basophilic Stippling Elliptocytes Morphology Comment Sodium Potassium Chloride Carbon Dioxide Anion Gap BUN Creatinine GFR Calculation BUN/Creatinine Ratio Glucose POC Glucose 157 H 241 H Calculated Osmolality Calcium Total Bilirubin AST ALT Alkaline Phosphatase Total Creatine Kinase 48 D CK-MB (CK-2) 2.2 Troponin I 0.044 Total Protein Albumin Globulin Albumin/Globulin Ratio Lipase 10/02/17 10/03/17 10/03/17 19:08 05:01 05:01 WBC 3.0 L RBC 3.20 L Hgb 10.0 L Hct 28.6 L MCV 89.4 MCH 31 MCHC 35.0 RDW 17.3 Plt Count 77 L MPV 10.7 Neut % (Auto) 63.6 Lymph % (Auto) 17.6 L [place] % (Auto) 11.1 Eos % (Auto) 2.0 Baso % (Auto) 0.3 Neut # (Auto) 1.9 Lymph # (Auto) 0.5 L [place] # (Auto) 0.3 Eos # (Auto) 0.1 Baso # (Auto) 0.0 Total Counted 100 Immature Gran % 5.4 Nucleated RBC % 0.0 Immature Gran # 0.16 Segmented Neutrophils 65 Band Neutrophils 5 Lymphocytes 17 L Monocytes 11 Eosinophils 2 Nucleated RBCs 1 Nucleated RBCs # 0.00 Platelet Estimate Decreased Immature Plt Fraction 0.0 Hypochromasia Slight Basophilic Stippling Slight Elliptocytes Few Morphology Comment Sodium Potassium Chloride Carbon Dioxide Anion Gap BUN Creatinine GFR Calculation BUN/Creatinine Ratio Glucose POC Glucose 224 H Calculated Osmolality Calcium Total Bilirubin AST ALT Alkaline Phosphatase Total Creatine Kinase CK-MB (CK-2) Troponin I Total Protein Albumin Globulin Albumin/Globulin Ratio Lipase 924.0 H 06/16/17 06/16/17 05:01 08:19 WBC RBC Hgb Hct MCV MCH MCHC RDW Plt Count MPV Neut % (Auto) Lymph % (Auto) [place] % (Auto) Eos % (Auto) Baso % (Auto) Neut # (Auto) Lymph # (Auto) [place] # (Auto) Eos # (Auto) Baso # (Auto) Total Counted Immature Gran % Nucleated RBC % Immature Gran # Segmented Neutrophils Band Neutrophils Lymphocytes Monocytes Eosinophils Nucleated RBCs Nucleated RBCs # Platelet Estimate Immature Plt Fraction Hypochromasia Basophilic Stippling Elliptocytes Morphology Comment Sodium 137 Potassium 3.4 L Chloride 97 L Carbon Dioxide 35 H Anion Gap 8.4 BUN 38 H Creatinine 1.20 GFR Calculation 64 BUN/Creatinine Ratio 31.00 H Glucose 204 H POC Glucose 124 H Calculated Osmolality 287.8 Calcium 8.2 L Total Bilirubin 1.40 H AST 33 ALT 35 Alkaline Phosphatase 75 Total Creatine Kinase CK-MB (CK-2) Troponin I Total Protein 5.2 L Albumin 2.8 L Globulin 2.4 Albumin/Globulin Ratio 1.1 Lipase - EKG EKG results: interpreted by me, no acute changes EKG shows: sinus rhythm (Frequent PVCs/PACs) Quality Measures - VTE Contraindication to Pharmacological VTE Prophylaxis: Coagulopathy Specialty Discharge - Follow Up or Referrals Follow up with: Thad Gomez MD [Physician] - 06/25/17 1:40 pm (EKG, CBC, BMP, MAG) I, Thad Gomez MD, personally performed the services described in this documentation, ascribed by Sonali Penn RN in my presence, and it is both accurate and complete [id number] .
[2017-06-16] MEDS: PIPERACILLIN/TAZOBACTAM 3,375 MG in SODIUM CHLORIDE 0.9% 100 ML IV SCH (18:36)
[2017-06-16] MEDS: ONDANSETRON 4 MG/2 ML VIAL IV PRN (20:43)
[2017-06-16] MEDS: ATORVASTATIN 40 MG TABLET PO SCH (21:49)
[2017-06-16] MEDS: INSULIN GLARGINE 100 UNIT/ML SUBCUT SCH (21:49)
[2017-06-17] MEDS: PIPERACILLIN/TAZOBACTAM 3,375 MG in SODIUM CHLORIDE 0.9% 100 ML IV SCH ×3 (02:44→17:21)
[2017-06-17] MEDS: HYDROmorphone 2 MG/1 ML VIAL IV PRN ×2 (05:06→21:52)
[2017-06-17] MEDS: ALBUTEROL/IPRATROPIUM 3 ML NEB RESP TX SCH ×2 (07:18→19:33)
[2017-06-17] MEDS: ALPRAZolam 0.5 MG TABLET PO PRN ×2 (07:50→11:07)
--- NOTE | 2017-06-17 08:41 | Pulmonology Progress Note ---
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 He said he still has some abdominal discomfort but is better. He is breathing okay and his blood pressure looks better today. He has been on anticoagulation so it is difficult to workup his gallbladder. He is being evaluated by GI. Exam (Progress Note) - Constitutional Vitals: Period Temp Pulse Resp BP Sys/Huddleston Pulse Ox Last 24 Hr 97.2 F-98.7 F 63-88 18-20 94-132/53-76 90-99 Exam: General appearance: normal weight, no acute distress, other (He is having no respiratory distress but is having some abdominal pain. He does look a little better today.) - Head Head exam: Present: normal inspection, normocephalic - Eye Eye exam: Present: EOMI. Absent: scleral icterus Pupils: Present: ELMA - ENT ENT exam: Present: normal exam - Neck Neck exam: Absent: lymphadenopathy, thyromegaly - Respiratory Respiratory exam: Present: He has some crackles in the left base but no wheezing. - Cardiovascular Cardiovascular exam: Present: regular rate and rhythm. Absent: gallop, JVD, systolic murmur - GI/Abdominal GI/Abdominal exam: Present: His abdomen is much softer and he has only minimal epigastric tenderness. - Extremities Exam Extremities exam: Present: other (He has some bruising on his extremities). Absent: calf tenderness, edema - Back Exam Back exam: Absent: CVA tenderness (L), CVA tenderness (R) - Neurological Exam Neurological exam: Present: alert, oriented X3 - Psychiatric Psychiatric exam: Present: depressed - Skin Skin exam: Present: warm, dry Results - Labs CBC & BMP: 06/16/17 05:01 06/16/17 05:01 Assessment and Plan (1) Abdominal pain Status: Acute Assessment and plan: Patient comes back in with significant abdominal pain and cramping with constipation. He does have gallstones. He seems to be having less pain today. Current Visit: Yes (2) Steroid-induced diabetes mellitus Status: Chronic Assessment and plan: The patient's glucoses are being monitored and are little elevated. His hemoglobin A1c level 7.9. His glucose was 168 today. Current Visit: No (3) CAD status post stents Problem details: Xience 3x38mm proximal LAD 12/31/2016 in [place] Status: Chronic Assessment and plan: He is not having any angina and no signs of CHF. Current Visit: No (4) Hypertension Status: Chronic Assessment and plan: His blood pressure looks much better today. He certainly needs to continue with his steroids. Current Visit: No (5) A-fib Status: Chronic Assessment and plan: His heart rate has been better and he has sinus rhythm and PACs now. His heart rate is still under good control. Current Visit: No Qualifiers: Atrial fibrillation type: paroxysmal Qualified Code(s): I48.0 - Paroxysmal atrial fibrillation (6) Chronic anticoagulation Status: Chronic Assessment and plan: The patient has chronically been on anticoagulation. 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 He has a lot of scarring in his left chest but otherwise he appears to be stable. He says his breathing is doing okay at present. Once he is over his abdominal problems, he can probably cut back on his prednisone. Current Visit: No Specialty Discharge - Follow Up or Referrals Follow up with: Thad Gomez MD [Physician] - 06/25/17 1:40 pm (EKG, CBC, BMP, MAG)
[2017-06-17] MEDS: methylPREDNISolone SOD SUC 40 MG/1 ML VIAL IV SCH ×2 (09:38→21:50)
[2017-06-17] MEDS: INSULIN REGULAR 100 UNIT/ML SUBCUT SCH ×4 (09:58→21:51)
--- NOTE | 2017-06-17 10:27 | Gastrointestinal Progress Note ---
<JeffreyYaa Chelle - Last Filed: 06/17/17 10:21> Assessment and Plan (1) Abdominal pain Status: Acute Assessment and plan: 06/17-no changes in abdominal pain. Ultrasound results noted as below. No repeat labs for today. MRCP is pending for this morning. Plan an addendum to follow Dr. Brown. 06/16-several month history of abdominal pain worsened over the last several days. Upper quadrants radiating into back. Elevated lipase findings with no correlated CT findings on noncontrasted scan. Cholelithiasis noted with mildly elevated bilirubin at 1.4. Lipase level remains elevated today. Change to n.p.o. status, obtain abdominal ultrasound this afternoon or in the morning. Further plan an addendum to followed by Dr. Brown. Current Visit: Yes Gastroenterology - PN: Subj Interval history: CC: Abdominal pain Pt is awake and alert lying in bed with family at side. He states the pain is the same at this time. He had a HIDA scan ordered for today however this has been placed on hold due to MRCP today. US results noted on yesterday with cholelithiasis versus biliary sludge with nondistended gallbladder and mild wall thickness with positive Correa sign. Common bile duct was noted at 0.5 cm without ductal dilatation. Pancreas was obscured on the scan. Dr Sosa has consulted with patient however surgical intervention is not an option at this time. Abdomen is soft, tender to palpation. No repeat labs noted for today including a repeat lipase. ROS: Denies shortness breath or chest pain Exam (Progress Note) - Constitutional Vitals: Period Temp Pulse Resp BP Sys/Huddleston Pulse Ox Last 24 Hr 97.2 F-98.7 F 63-88 18-20 94-132/53-76 90-99 General appearance: normal weight, no acute distress - Head Head exam: Present: normal inspection, normocephalic - Eye Eye exam: Present: other (lids and conjunctiva unremarkable). Absent: scleral icterus - ENT ENT exam: Present: normal exam, normal oropharynx - Neck Neck exam: Present: normal inspection - Respiratory Respiratory exam: Present: clear to auscultation bilaterally. Absent: rales, rhonchi, wheezes - Cardiovascular Cardiovascular exam: Present: regular rate and rhythm. Absent: diastolic murmur , JVD, systolic murmur - GI/Abdominal GI/Abdominal exam: Present: normal bowel sounds, tenderness, soft. Absent: ascites, distended, mass, organomegaly - Extremities Exam Extremities exam: Present: normal inspection, full ROM - Back Exam Back exam: Present: normal inspection - Neurological Exam Neurological exam: Present: alert, oriented X3 - Psychiatric Psychiatric exam: Present: normal affect, normal mood - Skin Skin exam: Present: normal color, warm, dry Results - Labs CBC & BMP: 06/16/17 05:01 06/16/17 05:01 Lab Results: I have reviewed the past 24 hour labs Specialty Discharge - Follow Up or Referrals Follow up with: Thad Gomez MD [Physician] - 06/25/17 1:40 pm (EKG, CBC, BMP, MAG) <Camden Brown - Last Filed: 06/17/17 22:16> Exam (Progress Note) - Constitutional Vitals: Period Temp Pulse Resp BP Sys/Huddleston Pulse Ox Last 24 Hr 97.2 F-98.7 F 59-87 18-20 103-144/53-89 93-99 Results - Labs CBC & BMP: 06/16/17 05:01 06/16/17 05:01
--- NOTE | 2017-06-17 10:46 | General Surgery Consult Note ---
Assessment and Plan (1) Pancreatitis Status: Acute Assessment and plan: Patient with gallstone pancreatitis. Gastroenterology consultation reviewed and agree. Patient is a high risk for perioperative complications on current anticoagulation. No plans for surgical intervention at this time. Dr. Sosa to follow. Current Visit: Yes Qualifiers: Pancreatitis type: biliary History of Present Illness Chief complaint: epigastric pain History of present illness: Mr. Davison is a 72 year old male with past medical history of CAD, paroxysmal atrial fibrillation, after recent cardiac stent placement, BOOP, and severe pulmonary hypertension on Eliquis and Plavix currently admitted for evaluation of syncope who developed epigastric and right upper quadrant pain and was found to have elevated lipase greater than 900 and ultrasound evidence of cholelithiasis and biliary sludge and mildly thickened gallbladder without evidence of current common bile duct obstruction. Patient has tolerated clear liquids and is somewhat improved overnight. No fevers, chills, rigors, nausea or vomiting. Home Medications Medication Instructions Recorded Confirmed Type Albuterol/Ipratropium Neb [Duoneb] 3 ml RESP TX RT BID 05/23/17 06/14/17 History Apixaban [Eliquis] 5 mg PO BID 05/23/17 06/14/17 History Atorvastatin [Lipitor] 40 mg PO BEDTIME 05/23/17 06/14/17 History Clopidogrel [Plavix] 75 mg PO QAM 05/23/17 06/14/17 History Escitalopram [Lexapro] 20 mg PO DAILY 05/23/17 06/14/17 History Fluticasone/Vilanterol [Breo 1 puff INH QAM 05/23/17 06/14/17 History Ellipta 100-25 Mcg INH] Furosemide Tab [Lasix Tab] 20 mg PO BID DIURETIC 05/23/17 06/14/17 History Insulin Aspart [NovoLOG] 14 unit SUBCUT AC 05/23/17 06/14/17 History Insulin Detemir [Levemir] 34 unit SUBCUT QAM 05/23/17 06/14/17 History Losartan [Cozaar] 12.5 mg PO QAM 05/23/17 06/14/17 History Potassium Chloride Cap/Tab [K Dur] 10 meq PO QAM 05/23/17 06/14/17 History predniSONE TAB [PredniSONE] 20 mg PO QOTHER DAY 05/23/17 06/14/17 History Sotalol [Betapace] 80 mg PO BID #60 tablet 05/28/17 06/14/17 Rx Diltiazem Cd Cap [Cardizem CD] 240 mg PO DAILY 06/11/17 06/14/17 History predniSONE TAB [PredniSONE] 15 mg PO QOTHER DAY 06/11/17 06/14/17 History Aspirin Chew Tab 81 mg PO DAILY tablet 06/13/17 06/14/17 Rx Allergies Allergy/AdvReac Type Severity Reaction Status Date / Time No Known Allergies Allergy Verified 06/14/17 12:29 Medical,Surgical,& Family Hx - Medical History Cardio: History of: Cardiac Dysrhythmia, CHF, CAD, Hypertension, [place], Cardiovascular Problems (a fib, stents in 12/2016 and 05/2017) No history of: PVD Psychological: History of: Anxiety Disorders Neurology: History of: Seizures (2014, none since.) No history of: Dementia, TIA Endocrine: History of: Diabetes Mellitus (IDDM) (Steroid-induced), Diabetes Mellitus (NIDDM), Dyslipidemia No history of: Thyroid Disorder Rheumatology: No history of;: Fibromyalgia, Gout Respiratory: History of: Pulmonary Hypertension (Severe), Respiratory Problems ( bronchiethisis, BOOP) No history of: Asthma, COPD, Obstructive Sleep Apnea Renal: History of: Renal Failure (Chronic renal insufficiency) Genitourinary: No history of: Prostate Problems, Genitourinary Cancer Gastrointestinal: No history of: GERD, Gastrointestinal Bleed, Hepatitis Musculoskeletal: History of: Degenerative Disk Disease Hematology: History of: Anemia No history of: Bleeding Problems, Clotting Problems Other: No history of: Cancer, HIV - Surgical History Cardiac Surgeries: Sugical HX of: Cardiac Catheterization Patient Denies: Carotid Endarterectomy, Internal Defibrillator Neurologic Surgeries: Surgical HX of: Neurologic Surgery (benign mengioma in 2014. no seizures since procedure) HEENT Surgeries: Patient denies: Carotid Endarterectomy Orthopedic Surgeries: Surgical HX of;: Orthopedic Surgery - Family History Family History: Reports;: Family Cancer (prostate cancer), Family Diabetes ( father), Family Heart Disease (mother and father), Family Hypertension (mother) - Social History Smoking Status: Never smoker Frequency of Alcohol Use: None Type of Drug Use: None - Constitutional Constitutional: Present: as per HPI - Cardiovascular Cardiovascular: Present: syncope. Absent: chest pain at rest - Respiratory Respiratory: Present: cough - Gastrointestinal Gastrointestinal: Present: as per HPI - Musculoskeletal Musculoskeletal: Absent: arthralgias Hematologic/Lymphatic: Absent: easy bleeding, easy bruising Exam - Constitutional Vitals: Period Temp Pulse Resp BP Sys/Huddleston Pulse Ox Last 24 Hr 97.2 F-98.7 F 63-88 18-20 94-132/53-76 90-99 General appearance: no acute distress - Eye Eye exam: Absent: scleral icterus - GI/Abdominal GI/Abdominal exam: Present: normal bowel sounds, tenderness (Epigastric right upper quadrant), soft. Absent: distended, firm - Neurological Exam Neurological exam: Present: alert, oriented X3 Speech: Present: normal - Skin Skin exam: Present: normal color Quality Measures - VTE Contraindication to Pharmacological VTE Prophylaxis: Coagulopathy Results - Labs CBC & BMP: 06/16/17 05:01 06/16/17 05:01 Lab Results: I have reviewed the past 24 hour labs Labs: Bilirubin 1.4 on 06/14 and unchanged on 06/16; remaining LFTs unremarkable Lipase on 06/15 943; 06/16: 924 - Diagnostic Findings Procedure: CT Abdomen and Pelvis: image reviewed by me, report reviewed by me ( No inflammation noted about the pancreas), Ultrasound: report reviewed by me ( Signs of cholelithiasis versus biliary sludge noted; the gallbladder is nondistended with mildly prominent wall; common bile duct 0.5 cm) Specialty Discharge - Follow Up or Referrals Follow up with: Thad Gomez MD [Physician] - 06/25/17 1:40 pm (EKG, CBC, BMP, MAG)
[2017-06-17] MEDS ORDERED: DEXTROSE 50% 25 GM/50 ML VIAL IV PRN (11:00)
--- NOTE | 2017-06-17 13:02 | Hospitalist Progress Note ---
Assessment and Plan - Time spent with patient Time spent with patient: Less than 30 minutes (1) Left flank discomfort Status: Acute Assessment and plan: 06/17/17 - Abdominal Tenderness with gentle palpation -MR abdomen: 06/17/17: 1. Cholelithiasis 2. No ductal abnormalities 3. Generalized pancreatic atrophy -BOOP - controlled and being followed by Dr Davis -DM - continue sliding scale and Lantus -Hypokalemia - replaced - repeat a.m. labs -cardiac - New Drug Eluting stent placement - continue plavix, ASA, Eliquis -GI is following and greatly appreciate assistance - following recommendations -Pulmonary is following and greatly appreciate assistance - following recommendations -Cardiology is following and greatly appreciate assistance - following recommendations -General Surgery CONSULTED: Dr Sosa - pancreatitis likely gallstone etiology. Recommend treating the pancreatitis. He would get some protection from ERCP if necessary. Believed too high risk to proceed with cholecystectomy related to anticoagulants and was certainly be high risk if he came off of anticoagulants in the near future. I do not anticipate cholecystectomy this admission or in the near future. If he were to develop evidence of cholecystitis then I would recommend percutaneous cholecystostomy tube until a later date when he can come off of the Plavix and Eliquis. -repeat a.m. labs including Lipase -Further recommendations with care to follow per Dr Copeland. 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 12:15 - Patient not is room, has not returned from MRCP 14:40 Patient back in room, returned from MR abdomen and resting quietly, easily awakened and at bedside. He reports some improvement in pain at present but still hurting "quiet a bit of stomach pain". He is very to palpation. He was able to tolerate some of his meal. Denies nausea or vomiting. Exam - Constitutional Vitals: Period Temp Pulse Resp BP Sys/Huddleston Pulse Ox Last 24 Hr 97.2 F-98.7 F 63-88 18-20 94-132/53-76 93-99 General appearance: normal weight, no acute distress - Head Head exam: Present: normal inspection - Eye Eye exam: Present: EOMI Pupils: Present: ELMA - Neck Neck exam: Present: normal inspection. Absent: thyromegaly - Respiratory Respiratory exam: Present: clear to auscultation bilaterally. Absent: rales, rhonchi, stridor, wheezes - Cardiovascular Cardiovascular exam: Present: regular rate and rhythm - GI/Abdominal GI/Abdominal exam: Present: hypoactive bowel sounds, tenderness, soft. Absent: firm, rebound - Extremities Exam Extremities exam: Present: normal inspection, full ROM. Absent: edema - Neurological Exam Neurological exam: Present: alert, oriented X3, CN II-XII intact - Psychiatric Psychiatric exam: Present: normal affect, normal mood. Absent: agitated, anxious - Skin Skin exam: Present: normal color, warm, dry Results - Labs CBC & BMP: 06/16/17 05:01 06/16/17 05:01 Lab Results: I have reviewed the past 24 hour labs - Diagnostic Findings Procedure: MRI: report reviewed by me (Abdomen: Cholelithiasis, no ductal abnormalities, generalized pancreatic atrophy) Quality Measures - VTE Contraindication to Pharmacological VTE Prophylaxis: Coagulopathy Specialty Discharge - Follow Up or Referrals Follow up with: Thad Gomez MD [Physician] - 06/25/17 1:40 pm (EKG, CBC, BMP, MAG)
[2017-06-17] MEDS: PANTOPRAZOLE 40 MG VIAL IV SCH (13:24)
--- NOTE | 2017-06-17 13:32 | Magnetic Resonance Report ---
Exam: Magnetic resonance cholangiopancreatography Exam date: 06/17/2017 1203 PM Indication: Abdominal pain, cholelithiasis pancreatitis Comparison: Ultrasound performed on previous day at [address] performed June 15, 2017 at 0122 hours Technique: Multiplanar, multisequence magnetic resonance images of the abdomen were performed without the use of intravenous contrast. Findings: Examination is markedly limited secondary to motion degradation artifact Liver: Unremarkable in size and signal. No focal parenchymal abnormalities. Gallbladder: Punctate stones within an otherwise normal-appearing gallbladder. Intra and extrahepatic ducts: No ductal dilatation. No intraluminal filling defects. Pancreas: Mild atrophy Bilateral adrenal glands and kidneys are unremarkable with note made of bilateral renal cortical thinning. Visualized portions of bowel are within normal limits. No marrow signal abnormalities. Impression: 1. Cholelithiasis 2. No ductal abnormalities 3. Generalized pancreatic atrophy PROCEDURE INTERPRETED AT [facility]PARTMENT OF RADIOLOGY Final Report Signed by: Sebastián Cunningham MD
[2017-06-17] MEDS: SOTALOL 80 MG TABLET PO SCH ×2 (14:15→21:51)
[2017-06-17] MEDS: APIXABAN 5 MG TABLET PO SCH ×2 (14:16→21:46)
[2017-06-17] MEDS: POTASSIUM CHLORIDE 10 MEQ TABLET PO SCH (14:20)
[2017-06-17] MEDS: DILTIAZEM CD 240 MG CAPSULE PO SCH (14:20)
[2017-06-17] MEDS: CLOPIDOGREL 75 MG TABLET PO SCH (14:20)
[2017-06-17] MEDS: ESCITALOPRAM 10 MG TABLET PO SCH (14:20)
[2017-06-17] MEDS: LOSARTAN 25 MG TABLET PO SCH (14:21)
[2017-06-17] MEDS: ATORVASTATIN 40 MG TABLET PO SCH (21:46)
[2017-06-17] MEDS: INSULIN GLARGINE 100 UNIT/ML SUBCUT SCH (21:47)
[2017-06-18] MEDS: PIPERACILLIN/TAZOBACTAM 3,375 MG in SODIUM CHLORIDE 0.9% 100 ML IV SCH ×3 (01:17→17:18)
[2017-06-18 04:20] LABS: Basophils % 0.3 % (0.0-0.8); Hematocrit 27.8 VOL% (42.0-52.0); Hemoglobin 9.4 GM/DL (14.0-18.0); Immature Granulocytes % 5.4 %; Immature Granulocytes Absolute 0.21 #; Lymphocytes # 0.6 10*3/uL (1.4-4.0); Lymphocytes % 15.4 % (21.2-54.2); Mean Corpuscular HGB Conc 33.8 GM/DL (32-36); Mean Corpuscular Hemoglobin 31 PG (27-34); Mean Corpuscular Volume 91.4 FL (87-102); Monocytes # 0.2 10*3/uL (0.11-0.8); Monocytes % 4.6 % (1.7-12.7); Neutrophils # 2.9 10*3/uL (1.4-7.4); Neutrophils % 74.3 % (38.7-73.9); Platelet Count 84 T/CUMM (130-400); Red Blood Count 3.04 MC/CUMM (3.8-5.5); Red Cell Distribution Width 18.3 % (9.3-17.3); White Blood Count 3.9 T/CUMM (4-12)
[2017-06-18 04:45] LABS: Band Neutrophils 1 % (0-10); Hypochromasia 1+; Lymphocytes 10 % (20-55); Platelet Estimate Decreased; Segmented Neutrophils 82 % (50-85); Total Cells Counted 100
[2017-06-18 04:46] LABS: Giant Platelets Few; Ovalocytes Slight
[2017-06-18 04:52] LABS: Albumin 2.7 G/DL (3.4-5.0); Bilirubin,Total 1.3 MG/DL (0.2-1.0); Calcium 8.7 MG/DL (8.5-10.1); Osmolality,Calculated 285.4 MOS/KG (273-304); Potassium 4.4 MMOL/L (3.5-5.1); Total Protein 5.4 G/DL (6.4-8.3)
[2017-06-18] MEDS: ALBUTEROL/IPRATROPIUM 3 ML NEB RESP TX SCH ×2 (07:54→19:51)
--- NOTE | 2017-06-18 08:42 | General Surgery Progress Note ---
Assessment and Plan (1) Pancreatitis Status: Acute Assessment and plan: Patient with gallstones pancreatitis; cannot exclude chronic Pancreatitis. With the current necessity for Plavix and Eliquis, would not recommend cholecystectomy as the patient is high risk. When he is safe to be off of these for surgery he can follow-up outpatient and schedule the procedure electively. Current Visit: Yes Qualifiers: Pancreatitis type: biliary Subjective Patient reports: Present: feels better, pain is less (Tolerating oral intake. ) , afebrile Exam - Constitutional Vitals: Period Temp Pulse Resp BP Sys/Huddleston Pulse Ox Last 24 Hr 96.2 F-98.7 F 59-87 16-20 104-144/53-89 96-99 General appearance: no acute distress - GI/Abdominal GI/Abdominal exam: Present: tenderness (Minimal residual epigastric tenderness. ), soft. Absent: distended, firm, guarding - Neurological Exam Neurological exam: Present: alert, oriented X3 Speech: Present: normal - Skin Skin exam: Present: normal color Results - Labs CBC & BMP: 06/18/17 03:59 06/18/17 03:59 Lab Results: I have reviewed the past 24 hour labs Labs: Bilirubin decreased to 1.3, remaining LFTs unremarkable Lipase 148 - Diagnostic Findings Procedure: MRI: report reviewed by me (MRCP revealed cholelithiasis and no ductal abnormality; generalized pancreatic atrophy noted) Quality Measures - VTE Contraindication to Pharmacological VTE Prophylaxis: Coagulopathy Specialty Discharge - Follow Up or Referrals Follow up with: Thad Gomez MD [Physician] - 06/25/17 1:40 pm (EKG, CBC, BMP, MAG)
[2017-06-18] MEDS: PANTOPRAZOLE 40 MG VIAL IV SCH (08:47)
[2017-06-18] MEDS: ONDANSETRON 4 MG/2 ML VIAL IV PRN (08:47)
[2017-06-18] MEDS: methylPREDNISolone SOD SUC 40 MG/1 ML VIAL IV SCH ×2 (08:47→21:07)
[2017-06-18] MEDS: HYDROmorphone 2 MG/1 ML VIAL IV PRN ×2 (09:01→17:18)
[2017-06-18] MEDS: ESCITALOPRAM 10 MG TABLET PO SCH (09:05)
[2017-06-18] MEDS: APIXABAN 5 MG TABLET PO SCH ×2 (09:06→21:07)
[2017-06-18] MEDS: POTASSIUM CHLORIDE 10 MEQ TABLET PO SCH (09:06)
[2017-06-18] MEDS: SOTALOL 80 MG TABLET PO SCH ×2 (09:06→21:07)
[2017-06-18] MEDS: DILTIAZEM CD 240 MG CAPSULE PO SCH (09:06)
[2017-06-18] MEDS: LOSARTAN 25 MG TABLET PO SCH (09:06)
[2017-06-18] MEDS: CLOPIDOGREL 75 MG TABLET PO SCH (09:06)
[2017-06-18] MEDS: INSULIN REGULAR 100 UNIT/ML SUBCUT SCH ×5 (09:07→21:10)
--- NOTE | 2017-06-18 09:30 | Pulmonology Progress Note ---
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 He said he still has some abdominal discomfort but is better. He is breathing okay and his blood pressure looks better today. He says his abdominal pain is better and he had a better night. He is still on liquids at present. He did have a MRI of his pancreas and there is no signs of abscesses or duct obstruction. He does have gallstones. At present he seems to be stable. Exam (Progress Note) - Constitutional Vitals: Period Temp Pulse Resp BP Sys/Huddleston Pulse Ox Last 24 Hr 96.2 F-98.7 F 59-87 16-20 104-144/53-89 96-99 Exam: General appearance: normal weight, no acute distress, other (He is having no respiratory distress and his abdomen is better today.) - Head Head exam: Present: normal inspection, normocephalic - Eye Eye exam: Present: EOMI. Absent: scleral icterus Pupils: Present: ELMA - ENT ENT exam: Present: normal exam - Neck Neck exam: Absent: lymphadenopathy, thyromegaly - Respiratory Respiratory exam: Present: He has some crackles in the left base but no wheezing. His right lung sounds a little clearer. - Cardiovascular Cardiovascular exam: Present: regular rate and rhythm. Absent: gallop, JVD, systolic murmur - GI/Abdominal GI/Abdominal exam: Present: His abdomen is much softer and he has only minimal epigastric tenderness. He has no rebound or guarding. - Extremities Exam Extremities exam: Present: other (He has some bruising on his extremities). Absent: calf tenderness, edema - Back Exam Back exam: Absent: CVA tenderness (L), CVA tenderness (R) - Neurological Exam Neurological exam: Present: alert, oriented X3 - Psychiatric Psychiatric exam: Present: depressed - Skin Skin exam: Present: warm, dry Results - Labs CBC & BMP: 06/18/17 03:59 06/18/17 03:59 Assessment and Plan (1) Abdominal pain Status: Acute Assessment and plan: Patient comes back in with significant abdominal pain and cramping with constipation. He does have gallstones. He said he had a much better night and feels better. Current Visit: Yes (2) Steroid-induced diabetes mellitus Status: Chronic Assessment and plan: The patient's glucoses are being monitored and are little elevated. His hemoglobin A1c level 7.9. His glucose was 163 today. Current Visit: No (3) CAD status post stents Problem details: Xience 3x38mm proximal LAD 12[place]/2016 [place] Status: Chronic Assessment and plan: He is not having any angina and no signs of CHF. Current Visit: No (4) Hypertension Status: Chronic Assessment and plan: His blood pressure looks much better today. He certainly needs to continue with his steroids. Current Visit: No (5) A-fib Status: Chronic Assessment and plan: His heart rate has been better and he has sinus rhythm and PACs now. His heart rate is still under good control. Current Visit: No Qualifiers: Atrial fibrillation type: paroxysmal Qualified Code(s): I48.0 - Paroxysmal atrial fibrillation (6) Chronic anticoagulation Status: Chronic Assessment and plan: The patient has chronically been on anticoagulation. 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 He has a lot of scarring in his left chest but otherwise he appears to be stable. His breathing seems to be doing okay. He will continue low-dose prednisone at home. Current Visit: No Specialty Discharge - Follow Up or Referrals Follow up with: Thad Gomez MD [Physician] - 06/25/17 1:40 pm (EKG, CBC, BMP, MAG)
--- NOTE | 2017-06-18 10:01 | Gastrointestinal Progress Note ---
<Yaa Murphy Chelle - Last Filed: 06/18/17 09:57> Assessment and Plan (1) Abdominal pain Status: Acute Assessment and plan: 06/18-abdominal pain slightly improved through the night. MRI results noted. Plan an addendum to follow Dr. Brown. 06/17-no changes in abdominal pain. Ultrasound results noted as below. No repeat labs for today. MRCP is pending for this morning. Plan an addendum to follow Dr. Brown. 06/16-several month history of abdominal pain worsened over the last several days. Upper quadrants radiating into back. Elevated lipase findings with no correlated CT findings on noncontrasted scan. Cholelithiasis noted with mildly elevated bilirubin at 1.4. Lipase level remains elevated today. Change to n.p.o. status, obtain abdominal ultrasound this afternoon or in the morning. Further plan an addendum to followed by Dr. Brown. Current Visit: Yes Gastroenterology - PN: Subj Interval history: CC: Abdominal pain Patient is seen sitting up on edge of bed with at bedside. States that he rested fairly well last night. He is having continued episodes of abdominal pain without nausea vomiting. Tolerating only small amounts of clear liquid diet which he states did worsen his pain some. Abdomen is soft, mild tenderness to palpation. Lipase level is down today at 148. His MRCP findings were noted with only pancreatic atrophy. Also noted was punctate stones with normal-appearing gallbladder without ductal dilatation or filling defects noted. ROS: Denies shortness of breath or chest pain Exam (Progress Note) - Constitutional Vitals: Period Temp Pulse Resp BP Sys/Huddleston Pulse Ox Last 24 Hr 96.2 F-98.7 F 59-87 16-20 104-144/53-89 96-99 General appearance: normal weight, no acute distress - Head Head exam: Present: normal inspection, normocephalic - Eye Eye exam: Present: other (Lids and conjunctive are unremarkable). Absent: scleral icterus - ENT ENT exam: Present: normal exam, normal oropharynx - Neck Neck exam: Present: normal inspection - Respiratory Respiratory exam: Present: clear to auscultation bilaterally - Cardiovascular Cardiovascular exam: Present: regular rate and rhythm. Absent: diastolic murmur , JVD, systolic murmur - GI/Abdominal GI/Abdominal exam: Present: normal bowel sounds, tenderness, soft. Absent: ascites, distended, mass, organomegaly - Extremities Exam Extremities exam: Present: normal inspection, full ROM - Back Exam Back exam: Present: normal inspection - Neurological Exam Neurological exam: Present: alert, oriented X3 - Psychiatric Psychiatric exam: Present: normal affect, normal mood - Skin Skin exam: Present: normal color, warm, dry Results - Labs CBC & BMP: 06/18/17 03:59 06/18/17 03:59 Lab Results: I have reviewed the past 24 hour labs - Diagnostic Findings Procedure: MRI: report reviewed by me Specialty Discharge - Follow Up or Referrals Follow up with: Thad Gomez MD [Physician] - 06/25/17 1:40 pm (EKG, CBC, BMP, MAG) <Camden Brown - Last Filed: 06/18/17 21:14> Exam (Progress Note) - Constitutional Vitals: Period Temp Pulse Resp BP Sys/Huddleston Pulse Ox Last 24 Hr 96.2 F-97.4 F 63-78 16-20 103-136/63-88 92-98 Results - Labs CBC & BMP: 06/18/17 03:59 06/18/17 03:59
--- NOTE | 2017-06-18 11:04 | Hospitalist Progress Note ---
Assessment and Plan - Time spent with patient Time spent with patient: Less than 30 minutes (1) Left flank discomfort Status: Acute Assessment and plan: 06/18/17 - Improving left upper quadrant abdominal tenderness -Pancreatitis - MR abdomen did not show any signs of pancreatic tumors, abscess , or obstruction. Advance diet slowly as tolerated, continue p.o. fluid intake , supplemental oxygen as needed -BOOP - controlled, low dose steroids, IV Zosyn, improvement in breathind, Pulmonary is managing -DM - A1c 7.9 - better control; Continue sliding scale, Lantus, and continue to monitor -CAD - recent stents, continue anticoagulant therapy(ASA, PLAVIX, ELIQUIS), cardiology following -HTN- better control, continue current medical management, continue to monitor -hypokalemia - resolved, continue to monitor a.m. labs -GI - started Actigall, PRN pain management medications, will continue to monitor -Cholelithiasis - continue to monitor at present, consider surgery after acute illness recovery, related to high risk with current anticoagulant therapy -Repeat Labs in a.m., including lipase -Continue to follow GI, Pulmonary, Cardiology recommendations and greatly appreciate assistance. -further recommendations with care to follow per Dr Copeland 06/17/17 - Abdominal Tenderness with gentle palpation -MR abdomen: 06/17/17: 1. Cholelithiasis 2. No ductal abnormalities 3. Generalized pancreatic atrophy -BOOP - controlled and being followed by Dr Davis -DM - continue sliding scale and Lantus -Hypokalemia - replaced - repeat a.m. labs -cardiac - New Drug Eluting stent placement - continue plavix, ASA, Eliquis -GI is following and greatly appreciate assistance - following recommendations -Pulmonary is following and greatly appreciate assistance - following recommendations -Cardiology is following and greatly appreciate assistance - following recommendations -General Surgery CONSULTED: Dr Sosa - pancreatitis likely gallstone etiology. Recommend treating the pancreatitis. He would get some protection from ERCP if necessary. Believed too high risk to proceed with cholecystectomy related to anticoagulants and was certainly be high risk if he came off of anticoagulants in the near future. I do not anticipate cholecystectomy this admission or in the near future. If he were to develop evidence of cholecystitis then I would recommend percutaneous cholecystostomy tube until a later date when he can come off of the Plavix and Eliquis. -repeat a.m. labs including Lipase -Further recommendations with care to follow per Dr Copeland. 06/15/17 patient reports worsening left abdominal pain without nausea or vomiting lidoderm patch in use discussed with Dr Copeland: ordered CT abd/pelvis and chest will adjust plan of care as needed according to results increased pain medication dose and will re-evaluate control managment Current Visit: Yes (2) BOOP (bronchiolitis obliterans with organizing pneumonia) Status: Chronic Assessment and plan: 06/15/17 - Will consult Dr Davis for assistance with care of BOOP Current Visit: No (3) Diabetes mellitus Status: Chronic Assessment and plan: 06/15/17 - continue to monitor continue sliding scale and accu-checks Current Visit: Yes Hospitalist: Subjective Interval history: Mr Davison seen and chart reviewed. He reports left sided upper abdominal pain and tenderness but greatly improved compared to yesterday. He was able to tolerate part of his breakfast this morning but had to stop eating because he started to feel uncomfortable. He reports breathing is better this morning. He is going to attempt to walk in the halls some today. He denies any fever, chills, or vomiting. Exam - Constitutional Vitals: Period Temp Pulse Resp BP Sys/Huddleston Pulse Ox Last 24 Hr 96.2 F-98.7 F 59-87 16-20 104-144/53-89 96-99 General appearance: normal weight, no acute distress - Head Head exam: Present: normal inspection - Eye Eye exam: Present: EOMI Pupils: Present: ELMA - ENT ENT exam: Present: normal exam - Neck Neck exam: Present: normal inspection. Absent: thyromegaly - Respiratory Respiratory exam: Present: clear to auscultation bilaterally. Absent: rales, rhonchi, stridor, wheezes - Cardiovascular Cardiovascular exam: Present: regular rate and rhythm - GI/Abdominal GI/Abdominal exam: Present: normal bowel sounds, tenderness (left upper abdominal tenderness), soft. Absent: rebound - Extremities Exam Extremities exam: Present: normal inspection, full ROM. Absent: edema - Neurological Exam Neurological exam: Present: alert, oriented X3, CN II-XII intact - Psychiatric Psychiatric exam: Present: normal affect, normal mood. Absent: agitated, anxious - Skin Skin exam: Present: normal color, warm, dry Results - Labs CBC & BMP: 06/18/17 03:59 06/18/17 03:59 Lab Results: I have reviewed the past 24 hour labs Quality Measures - VTE Contraindication to Pharmacological VTE Prophylaxis: Coagulopathy Specialty Discharge - Follow Up or Referrals Follow up with: Thad Gomez MD [Physician] - 06/25/17 1:40 pm (EKG, CBC, BMP, MAG)
[2017-06-18] MEDS: URSODIOL 300 MG CAPSULE PO SCH ×2 (11:44→21:07)
[2017-06-18] MEDS: ATORVASTATIN 40 MG TABLET PO SCH (21:07)
[2017-06-18] MEDS: ALPRAZolam 0.5 MG TABLET PO PRN (21:07)
[2017-06-18] MEDS: INSULIN GLARGINE 100 UNIT/ML SUBCUT SCH (21:10)
[2017-06-19] MEDS: PIPERACILLIN/TAZOBACTAM 3,375 MG in SODIUM CHLORIDE 0.9% 100 ML IV SCH ×3 (01:19→17:59)
[2017-06-19 05:05] LABS: Hematocrit 25.7 VOL% (42.0-52.0); Hemoglobin 8.8 GM/DL (14.0-18.0); Immature Granulocytes % 4.9 %; Immature Granulocytes Absolute 0.19 #; Lymphocytes # 0.4 10*3/uL (1.4-4.0); Lymphocytes % 10.7 % (21.2-54.2); Mean Corpuscular HGB Conc 34.2 GM/DL (32-36); Mean Corpuscular Hemoglobin 31 PG (27-34); Mean Corpuscular Volume 91.1 FL (87-102); Mean Platelet Volume 10.4 FL (9.6-12.0); Monocytes # 0.2 10*3/uL (0.11-0.8); Monocytes % 4.9 % (1.7-12.7); NRBC # 0.02 10*3/uL; Neutrophils # 3.1 10*3/uL (1.4-7.4); Neutrophils % 79.5 % (38.7-73.9); Red Blood Count 2.82 MC/CUMM (3.8-5.5); Red Cell Distribution Width 18.2 % (9.3-17.3); White Blood Count 3.8 T/CUMM (4-12)
[2017-06-19 05:08] LABS: Platelet Count 92 T/CUMM (130-400)
[2017-06-19 05:39] LABS: Calcium 8.5 MG/DL (8.5-10.1); Osmolality,Calculated 285.5 MOS/KG (273-304); Potassium 3.8 MMOL/L (3.5-5.1)
[2017-06-19 05:58] LABS: Band Neutrophils 2 % (0-10); Giant Platelets Few; Hypochromasia 1+; Lymphocytes 13 % (20-55); Microcytosis 1+; Nucleated Red Blood Cells 1 (0-5); Platelet Estimate Decreased; Segmented Neutrophils 80 % (50-85); Total Cells Counted 100
[2017-06-19] MEDS: ALBUTEROL/IPRATROPIUM 3 ML NEB RESP TX SCH ×2 (07:20→19:25)
[2017-06-19] MEDS: Fluticasone/Vilanterol [Breo Ellipta 100-25 Mcg Inh] 1 PUFF INH SCH ×2 (07:53→08:45)
[2017-06-19] MEDS: DILTIAZEM CD 240 MG CAPSULE PO SCH (08:34)
[2017-06-19] MEDS: INSULIN REGULAR 100 UNIT/ML SUBCUT SCH ×4 (08:34→21:27)
[2017-06-19] MEDS: SOTALOL 80 MG TABLET PO SCH ×2 (08:34→21:26)
[2017-06-19] MEDS: ESCITALOPRAM 10 MG TABLET PO SCH (08:34)
[2017-06-19] MEDS: URSODIOL 300 MG CAPSULE PO SCH ×2 (08:34→21:26)
[2017-06-19] MEDS: POTASSIUM CHLORIDE 10 MEQ TABLET PO SCH (08:35)
[2017-06-19] MEDS: CLOPIDOGREL 75 MG TABLET PO SCH (08:35)
[2017-06-19] MEDS: APIXABAN 5 MG TABLET PO SCH ×2 (08:35→21:26)
[2017-06-19] MEDS: methylPREDNISolone SOD SUC 40 MG/1 ML VIAL IV SCH ×2 (08:35→21:00)
[2017-06-19] MEDS: LOSARTAN 25 MG TABLET PO SCH (08:35)
[2017-06-19] MEDS: PANTOPRAZOLE 40 MG VIAL IV SCH (08:37)
--- NOTE | 2017-06-19 10:21 | Pulmonology Progress Note ---
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 He said he still has some abdominal discomfort but is better. He is breathing okay and his blood pressure looks better today. He said he had his best night in a while and his abdominal pain is much improved. He is still on clear liquids but feels better. His breathing has been quite stable. He is going to be started on Actigall and continue conservative treatment for his gallbladder disease. He can probably go home soon. Exam (Progress Note) - Constitutional Vitals: Period Temp Pulse Resp BP Sys/Huddleston Pulse Ox Last 24 Hr 96 F-97.6 F 54-73 16-20 103-136/63-82 91-100 Exam: General appearance: normal weight, no acute distress, other (He is having no respiratory distress and his abdomen is better today. He looks more comfortable today.) - Head Head exam: Present: normal inspection, normocephalic - Eye Eye exam: Present: EOMI. Absent: scleral icterus Pupils: Present: ELMA - ENT ENT exam: Present: normal exam - Neck Neck exam: Absent: lymphadenopathy, thyromegaly - Respiratory Respiratory exam: Present: He has some crackles in the left base but no wheezing. His right lung sounds a little clearer. - Cardiovascular Cardiovascular exam: Present: regular rate and rhythm. Absent: gallop, JVD, systolic murmur - GI/Abdominal GI/Abdominal exam: Present: His abdomen is much softer and he has only minimal epigastric tenderness. He has no rebound or guarding. His abdominal pain is much improved. - Extremities Exam Extremities exam: Present: other (He has some bruising on his extremities). Absent: calf tenderness, edema - Back Exam Back exam: Absent: CVA tenderness (L), CVA tenderness (R) - Neurological Exam Neurological exam: Present: alert, oriented X3 - Psychiatric Psychiatric exam: Present: depressed - Skin Skin exam: Present: warm, dry Results - Labs CBC & BMP: 06/19/17 04:05 06/19/17 04:05 Assessment and Plan (1) Abdominal pain Status: Acute Assessment and plan: Patient is feeling much better and his abdominal pain has improved. Current Visit: Yes (2) Steroid-induced diabetes mellitus Status: Chronic Assessment and plan: The patient's glucoses are being monitored and are little elevated. His hemoglobin A1c level 7.9. His glucose was 138 today. Current Visit: No (3) CAD status post stents Problem details: Xience 3x38mm proximal LAD 12/[place]/2016 [place] Status: Chronic Assessment and plan: He is not having any angina and no signs of CHF. Current Visit: No (4) Hypertension Status: Chronic Assessment and plan: His blood pressure has been much better lately. Current Visit: No (5) A-fib Status: Chronic Assessment and plan: His heart rate has been better and he has sinus rhythm and PACs now. His heart rate is still under good control. Current Visit: No Qualifiers: Atrial fibrillation type: paroxysmal Qualified Code(s): I48.0 - Paroxysmal atrial fibrillation (6) Chronic anticoagulation Status: Chronic Assessment and plan: The patient has chronically been on anticoagulation. 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 He has a lot of scarring in his left chest but otherwise he appears to be stable. He feels like his breathing is doing quite well. He will continue to try to taper his oral steroids and he is planning on trying every other day steroids soon. Current Visit: No Specialty Discharge - Follow Up or Referrals Follow up with: Thad Gomez MD [Physician] - 06/25/17 1:40 pm (EKG, CBC, BMP, MAG)
[2017-06-19] MEDS: LOPERAMIDE 2 MG CAPSULE PO PRN ×2 (11:34→18:00)
--- NOTE | 2017-06-19 17:29 | Hospitalist Progress Note ---
Hospitalist: Subjective Interval history: Patient is awake and alert, reports some abdominal pain, diarrhea is better. He was admitted with acute pancreatitis. Exam - Constitutional Vitals: Period Temp Pulse Resp BP Sys/Huddleston Pulse Ox Last 24 Hr 96 F-97.6 F 52-108 16-20 112-126/63-78 91-100 Exam: General: No Acute Distress HEENT: Normocephalic, atraumatic, Extra ocular movements intact Neck: Supple, No JVD Chest: Clear to auscultation B/L CV: S1 + S2 audible without murmur, gallop or rub Abd: soft, epigastric tenderness +, BS + Ext: No edema Skin: No purpura, bruising or rash Rheumatologic: No Joint deformities Neurologic: Awake and alert Results - Labs CBC & BMP: 06/19/17 04:05 06/19/17 04:05 - Impressions Assessment and Plan: Abdominal pain Status: Acute Assessment and plan: He had elevated lipase level, the CT scan and MRI of the abdomen did not show acute pancreatitis. He did have cholelithiasis. 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
[2017-06-19] MEDS: ATORVASTATIN 40 MG TABLET PO SCH (21:26)
[2017-06-19] MEDS: INSULIN GLARGINE 100 UNIT/ML SUBCUT SCH (21:26)
[2017-06-19] MEDS: ALPRAZolam 0.5 MG TABLET PO PRN (21:55)
[2017-06-20] MEDS: PIPERACILLIN/TAZOBACTAM 3,375 MG in SODIUM CHLORIDE 0.9% 100 ML IV SCH ×3 (02:13→16:41)
[2017-06-20] MEDS: HYDROmorphone 2 MG/1 ML VIAL IV PRN (04:52)
[2017-06-20] MEDS: ALBUTEROL/IPRATROPIUM 3 ML NEB RESP TX SCH ×2 (07:21→20:09)
--- NOTE | 2017-06-20 08:04 | Pulmonology Progress Note ---
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 He said he still has some abdominal discomfort but is better. He is breathing okay and his blood pressure looks better today. He says his abdomen continues to improve and his pancreatitis is better. He is starting to eat a little more. His breathing is quite stable still. Exam (Progress Note) - Constitutional Vitals: Period Temp Pulse Resp BP Sys/Huddleston Pulse Ox Last 24 Hr 96.1 F-97.6 F 52-108 16-20 112-136/65-78 90-99 Exam: General appearance: normal weight, no acute distress, other (He is much more comfortable and looks better.) - Head Head exam: Present: normal inspection, normocephalic - Eye Eye exam: Present: EOMI. Absent: scleral icterus Pupils: Present: ELMA - ENT ENT exam: Present: normal exam - Neck Neck exam: Absent: lymphadenopathy, thyromegaly - Respiratory Respiratory exam: Present: He has some crackles in the left base but no wheezing. His right lung sounds a little clearer. - Cardiovascular Cardiovascular exam: Present: regular rate and rhythm. Absent: gallop, JVD, systolic murmur - GI/Abdominal GI/Abdominal exam: Present: His abdomen is much softer and he has only minimal epigastric tenderness. He has no rebound or guarding. His abdominal pain is much improved. - Extremities Exam Extremities exam: Present: other (He has some bruising on his extremities). Absent: calf tenderness, edema - Back Exam Back exam: Absent: CVA tenderness (L), CVA tenderness (R) - Neurological Exam Neurological exam: Present: alert, oriented X3 - Psychiatric Psychiatric exam: Present: depressed - Skin Skin exam: Present: warm, dry Results - Labs CBC & BMP: 06/19/17 04:05 06/19/17 04:05 Assessment and Plan (1) Abdominal pain Status: Acute Assessment and plan: Patient is feeling much better and his abdominal pain has improved. His pancreatitis is better now. He is increasing his intake. Current Visit: Yes (2) Steroid-induced diabetes mellitus Status: Chronic Assessment and plan: The patient's glucoses are being monitored and are little elevated. His hemoglobin A1c level 7.9. His glucose was 112 today. Current Visit: No (3) CAD status post stents Problem details: Xience 3x38mm proximal LAD 12/31/2016 in [place] Status: Chronic Assessment and plan: He is not having any angina and no signs of CHF. Current Visit: No (4) Hypertension Status: Chronic Assessment and plan: His blood pressure has been much better lately. Current Visit: No (5) A-fib Status: Chronic Assessment and plan: His heart rate has been better and he has sinus rhythm and PACs now. His heart rate is still under good control. Current Visit: No Qualifiers: Atrial fibrillation type: paroxysmal Qualified Code(s): I48.0 - Paroxysmal atrial fibrillation (6) Chronic anticoagulation Status: Chronic Assessment and plan: The patient has chronically been on anticoagulation. 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 He has a lot of scarring in his left chest but otherwise he appears to be stable. He feels like his breathing is doing quite well. He will continue to try to taper his oral steroids and he is planning on trying every other day steroids soon. He can certainly go home from a pulmonary standpoint. Current Visit: No Specialty Discharge - Follow Up or Referrals Follow up with: Thad Gomez MD [Physician] - 06/25/17 1:40 pm (EKG, CBC, BMP, MAG)
[2017-06-20] MEDS: INSULIN REGULAR 100 UNIT/ML SUBCUT SCH ×4 (08:49→22:15)
[2017-06-20] MEDS: methylPREDNISolone SOD SUC 40 MG/1 ML VIAL IV SCH ×2 (09:08→22:05)
[2017-06-20] MEDS: PANTOPRAZOLE 40 MG VIAL IV SCH (09:10)
[2017-06-20] MEDS: CLOPIDOGREL 75 MG TABLET PO SCH (09:12)
[2017-06-20] MEDS: SOTALOL 80 MG TABLET PO SCH ×2 (09:12→22:01)
[2017-06-20] MEDS: POTASSIUM CHLORIDE 10 MEQ TABLET PO SCH (09:13)
[2017-06-20] MEDS: LOSARTAN 25 MG TABLET PO SCH (09:13)
[2017-06-20] MEDS: APIXABAN 5 MG TABLET PO SCH ×2 (09:13→22:02)
[2017-06-20] MEDS: ESCITALOPRAM 10 MG TABLET PO SCH (09:13)
[2017-06-20] MEDS: URSODIOL 300 MG CAPSULE PO SCH ×2 (09:13→22:02)
[2017-06-20] MEDS: DILTIAZEM CD 240 MG CAPSULE PO SCH (09:13)
[2017-06-20] MEDS: Fluticasone/Vilanterol [Breo Ellipta 100-25 Mcg Inh] 1 PUFF INH SCH (09:15)
[2017-06-20] MEDS: LOPERAMIDE 2 MG CAPSULE PO PRN (10:15)
--- NOTE | 2017-06-20 15:32 | Hospitalist Progress Note ---
Assessment and Plan (1) Abdominal pain Status: Acute Assessment and plan: Improved. Advance diet. 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 No acute events overnight. Case discussed with nursing staff. Labs reviewed. He is asking for advanced diet. His family members at the bedside and reports improvement in his symptoms and breathing. Exam - Constitutional Vitals: Period Temp Pulse Resp BP Sys/Huddleston Pulse Ox Last 24 Hr 95.7 F-97.6 F 52-81 16-18 112-151/65-94 90-99 Exam: Constitutional System: No distress. No tremulousness. Head: Normocephalic, atraumatic. Ears, Nose and Throat System: No pain or tenderness. No epistaxis or discharge Eyes System: Pupils equal, round, and reactive. Extraocular muscles intact. Neck: Supple, without adenopathy, No jugular venous distention. No thyromegaly, neck mass, or prior surgery apparent. Respiratory System: Chest clear to auscultation. Cardiovascular System: Heart with regular rate and rhythm. No murmur. GI System: Abdomen soft, nontender. Normo active bowel sounds present. Musculoskeletal System: limbs with no pedal edema. Full distal pulses. Normal capillary refill. Neurological System: No discernable sensory deficit. No aphasia Psychiatric System: Conversation is rational Results - Labs CBC & BMP: 06/19/17 04:05 06/19/17 04:05 Lab Results: I have reviewed the past 24 hour labs Quality Measures - VTE Contraindication to Pharmacological VTE Prophylaxis: Coagulopathy Specialty Discharge - Follow Up or Referrals Follow up with: Thad Gomez MD [Physician] - 10/12/17 1:40 pm (EKG, CBC, BMP, MAG)
[2017-06-20] MEDS: ATORVASTATIN 40 MG TABLET PO SCH (22:02)
[2017-06-20] MEDS: ALPRAZolam 0.5 MG TABLET PO PRN (22:02)
[2017-06-20] MEDS: INSULIN GLARGINE 100 UNIT/ML SUBCUT SCH (22:16)
[2017-06-21] MEDS: PIPERACILLIN/TAZOBACTAM 3,375 MG in SODIUM CHLORIDE 0.9% 100 ML IV SCH ×2 (00:41→08:25)
[2017-06-21] MEDS: ALBUTEROL/IPRATROPIUM 3 ML NEB RESP TX SCH (07:24)
[2017-06-21] MEDS: URSODIOL 300 MG CAPSULE PO SCH (08:17)
[2017-06-21] MEDS: CLOPIDOGREL 75 MG TABLET PO SCH (08:17)
[2017-06-21] MEDS: SOTALOL 80 MG TABLET PO SCH (08:17)
[2017-06-21] MEDS: POTASSIUM CHLORIDE 10 MEQ TABLET PO SCH (08:17)
[2017-06-21] MEDS: DILTIAZEM CD 240 MG CAPSULE PO SCH (08:17)
[2017-06-21] MEDS: LOSARTAN 25 MG TABLET PO SCH (08:18)
[2017-06-21] MEDS: APIXABAN 5 MG TABLET PO SCH (08:18)
[2017-06-21] MEDS: ESCITALOPRAM 10 MG TABLET PO SCH (08:18)
[2017-06-21] MEDS: methylPREDNISolone SOD SUC 40 MG/1 ML VIAL IV SCH (08:21)
[2017-06-21] MEDS: INSULIN REGULAR 100 UNIT/ML SUBCUT SCH ×2 (08:21→12:10)
[2017-06-21] MEDS: PANTOPRAZOLE 40 MG VIAL IV SCH (08:23)
[2017-06-21] MEDS: Fluticasone/Vilanterol [Breo Ellipta 100-25 Mcg Inh] 1 PUFF INH SCH (08:37)
--- NOTE | 2017-06-21 11:43 | Discharge Summary ---
Hospital Course - Hospital Course Hospital Course: 72-year-old white male to the hospital with abdominal pain. He has a history significant for coronary artery disease and chronic lung disease-BOOP. He is on chronic steroid therapy. He had ultrasound of the gallbladder showing cholelithiasis. Initial labs showed pancreatitis however imaging studies did not show any evidence of pancreatic inflammation or swelling. He was started on Actigall for his gallbladder symptoms. His symptoms improved throughout the course of hospitalization with conservative treatment and medical management. He was seen in consultation by Dr. Davis. His breathing has improved with IV Solu-Medrol and nebulizer treatments. He has reached maximum benefit from this inpatient hospitalization and is now tolerating a regular diet. He has minimal right upper quadrant pain. He is being discharged home today in the care of his family to follow-up with his primary care physician. RX for Actigall was given. The patient is already on alternating doses of steroid at home and should be continued until he can be seen by Dr. Davis. Further conditions will depend on his response to therapy as an outpatient. Home medications were reviewed and reconciled. The patient is a full code. His is his healthcare proxy and primary decision maker. 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 (3) Diabetes mellitus Status: Chronic (4) Hypertension Status: Chronic (5) A-fib Status: Chronic (6) Cholelithiasis Status: Chronic (7) Pancreatitis Status: Resolved Specialty Discharge - Follow Up or Referrals Follow up with: Thad Gomez MD [Physician] - 06/25/17 1:40 pm (EKG, CBC, BMP, MAG) Derrick Davis MD [Physician] - 1 Week Discharge Plan - Discharge Data Disposition: Disch To Home/Self Care Condition at Discharge: Stable Discharge Diet: advance to your usual diet Activity: resume usual activities as tolerated Hygiene: no restrictions Weight Bearing at Discharge: full weight bearing Contact your physician if you experience:: fever over 101, pain uncontrolled by pain medications - Discharge Medications New Ursodiol [Actigall] 300 mg PO BID #60 capsule Continue Insulin Aspart [NovoLOG] 14 unit SUBCUT AC Potassium Chloride Cap/Tab [K Dur] 10 meq PO QAM Losartan [Cozaar] 12.5 mg PO QAM Furosemide Tab [Lasix Tab] 20 mg PO BID DIURETIC Escitalopram [Lexapro] 20 mg PO DAILY Clopidogrel [Plavix] 75 mg PO QAM Atorvastatin [Lipitor] 40 mg PO BEDTIME Apixaban [Eliquis] 5 mg PO BID predniSONE TAB [PredniSONE] 15 mg PO QOTHER DAY Aspirin Chew Tab 81 mg PO DAILY tablet Insulin Detemir [Levemir] 34 unit SUBCUT QAM Fluticasone/Vilanterol [Breo Ellipta 100-25 Mcg INH] 1 puff INH QAM Albuterol/Ipratropium Neb [Duoneb] 3 ml RESP TX RT BID predniSONE TAB [PredniSONE] 20 mg PO QOTHER DAY Sotalol [Betapace] 80 mg PO BID #60 tablet Diltiazem Cd Cap [Cardizem CD] 240 mg PO DAILY - Follow Up or Referral Follow Up: Thad Gomez MD [Physician] - 06/25/17 1:40 pm (EKG, CBC, BMP, MAG) Derrick Davis MD [Physician] - 1 Week - Forms/Instructions Instructions: Pancreatitis (DC), Gallstones (DC), Acute Abdominal Pain (DC) Exam - Constitutional Vitals: Period Temp Pulse Resp BP Sys/Huddleston Pulse Ox Last 24 Hr 95.7 F-97.1 F 58-78 16-18 110-148/67-89 95-100 Discharge Results Labs on day of discharge: Labs from last 24 hours 06/21/17 06/20/17 06/20/17 07:39 22:05 15:41 POC Glucose 157 H 394 H 271 H 06/20/17 11:47 POC Glucose 185 H DS: Provider Date of admission: 06/14/17 15:03 Primary care physician: Cortes Barahona MD Attending physician on admission: Kimberly Dove MD Consults: 06/15/17 10:45 Consult to Physician [CONS] Routine Comment: BOOP, left effusion and pain Consulting Provider: Derrick Davis 06/15/17 14:40 Consult to Physician [CONS] Routine Comment: pancreatitis Consulting Provider: Camden Brown Consult to Specialist Group: Gastroenterology When should Consulting Provider be notified: Now Person Notified: Holli Date Notified: 06/16/17 Time Notified: 08:05 06/16/17 16:31 Consult to Physician [CONS] Routine Comment: cholecystitis Consulting Provider: Venkatesh Sosa Consult to Specialist Group: Surgery When should Consulting Provider be notified: Now Person Notified: Date Notified: 06/16/17 Time Notified: 16:45 06/18/17 11:03 Consult to Physical Therapy [CONS] Routine Reason for Physical Therapy: Evaluate and Treat Discharging clinician: Marcelo Rowland MD Expected date of discharge: 06/21/17
[2017-06-21 12:08] VITALS: BP 128/72
== END 2017-06-21 14:17 | disposition home or self-care (01) | DRG 439 ==
LOC: EDUNIT# → EDBD → N.ED 12:21 → INTOOBSV 15:03 → N.EDINP 15:03 → SUATTDRO 15:03 → OBSVTOIN 15:03 → N.EDINP 15:49 → N.TELEN 15:52
PROVIDERS: ADMIT Hospitalist; ATTEND Family Medicine

== ENCOUNTER 2017-07-01 13:03 | Inpatient (IN) ==
[2017-07-01] MEDS ORDERED: ALBUTEROL/IPRATROPIUM 3 ML NEB RESP TX STA (13:44)
[2017-07-01] MEDS ORDERED: methylPREDNISolone SOD SUC 125 MG/2 ML VIAL IV STA (13:44)
[2017-07-01] MEDS ORDERED: methylPREDNISolone SOD SUC 125 MG/2 ML VIAL ONE (13:49)
[2017-07-01 14:29] LABS: Basophils % 0.4 % (0.0-0.8); Eosinophils % 0.7 % (0.00-10.9); Hematocrit 31.7 VOL% (42.0-52.0); Hemoglobin 10.7 GM/DL (14.0-18.0); Immature Granulocytes % 4.6 %; Immature Granulocytes Absolute 0.26 #; Lymphocytes # 0.6 10*3/uL (1.4-4.0); Lymphocytes % 9.9 % (21.2-54.2); Mean Corpuscular HGB Conc 33.8 GM/DL (32-36); Mean Corpuscular Hemoglobin 31 PG (27-34); Mean Corpuscular Volume 91.6 FL (87-102); Mean Platelet Volume 10.4 FL (9.6-12.0); Monocytes # 0.5 10*3/uL (0.11-0.8); NRBC # 0.04 10*3/uL; Neutrophils # 4.3 10*3/uL (1.4-7.4); Neutrophils % 75.4 % (38.7-73.9); Red Blood Count 3.46 MC/CUMM (3.8-5.5); White Blood Count 5.7 T/CUMM (4-12)
[2017-07-01 14:31] LABS: Platelet Count 80 T/CUMM (130-400)
[2017-07-01 14:57] LABS: Albumin 2.9 G/DL (3.4-5.0); Bilirubin,Total 1.2 MG/DL (0.2-1.0); Magnesium 1.7 MG/DL (1.8-2.4); Osmolality,Calculated 286.1 MOS/KG (273-304); Potassium 3.4 MMOL/L (3.5-5.1); Troponin I Only 0.043 NG/ML (0.00-0.045)
[2017-07-01] MEDS ORDERED: ACETAMINOPHEN 325 MG TABLET PO PRN (15:55)
[2017-07-01] MEDS ORDERED: ONDANSETRON 4 MG/2 ML VIAL IV PRN (15:55)
[2017-07-01] MEDS ORDERED: ALPRAZolam 0.25 MG TABLET PO ONE (16:41)
[2017-07-01] MEDS ORDERED: ALPRAZolam 0.5 MG TABLET ONE (16:43)
[2017-07-01] MEDS ORDERED: DEXTROSE 50% 25 GM/50 ML VIAL IV PRN (16:46)
[2017-07-01] MEDS ORDERED: GLUCAGON 1 MG VIAL IM PRN (16:46)
[2017-07-01] MEDS: ALBUTEROL/IPRATROPIUM 3 ML NEB RESP TX SCH (20:04)
[2017-07-01] MEDS ORDERED: SOTALOL 80 MG TABLET ONE (20:39)
[2017-07-01] MEDS ORDERED: APIXABAN 5 MG TABLET ONE (20:39)
[2017-07-01] MEDS ORDERED: ATORVASTATIN 40 MG TABLET ONE (20:40)
[2017-07-01] MEDS: SOTALOL 80 MG TABLET PO SCH (21:29)
[2017-07-01] MEDS: INSULIN LISPRO 100 UNIT/ML SUBCUT SCH (21:30)
[2017-07-01] MEDS: ATORVASTATIN 40 MG TABLET PO SCH (21:30)
[2017-07-01] MEDS: APIXABAN 5 MG TABLET PO SCH (21:30)
[2017-07-02] MEDS: ALBUTEROL/IPRATROPIUM 3 ML NEB RESP TX SCH ×4 (00:34→19:04)
[2017-07-02] MEDS ORDERED: ALPRAZolam 0.5 MG TABLET ONE (00:56)
[2017-07-02] MEDS: ALPRAZolam 0.25 MG TABLET PO PRN ×2 (01:00→21:56)
[2017-07-02 06:14] LABS: Hematocrit 28.4 VOL% (42.0-52.0); Hemoglobin 9.3 GM/DL (14.0-18.0); Immature Granulocytes % 5.6 %; Immature Granulocytes Absolute 0.14 #; Lymphocytes # 0.3 10*3/uL (1.4-4.0); Lymphocytes % 12.8 % (21.2-54.2); Mean Corpuscular HGB Conc 32.7 GM/DL (32-36); Mean Corpuscular Hemoglobin 30 PG (27-34); Mean Corpuscular Volume 92.8 FL (87-102); Mean Platelet Volume 10.7 FL (9.6-12.0); Monocytes # 0.1 10*3/uL (0.11-0.8); NRBC # 0.02 10*3/uL; Neutrophils # 1.9 10*3/uL (1.4-7.4); Neutrophils % 77.6 % (38.7-73.9); Platelet Count 62 T/CUMM (130-400); Red Blood Count 3.06 MC/CUMM (3.8-5.5); Red Cell Distribution Width 17.8 % (9.3-17.3); White Blood Count 2.5 T/CUMM (4-12)
[2017-07-02 06:25] LABS: Albumin 2.7 G/DL (3.4-5.0); Bilirubin,Total 0.7 MG/DL (0.2-1.0); Calcium 7.9 MG/DL (8.5-10.1); Magnesium 1.9 MG/DL (1.8-2.4); Potassium 3.8 MMOL/L (3.5-5.1); Total Protein 5.1 G/DL (6.4-8.3)
[2017-07-02 06:58] LABS: Band Neutrophils 3 % (0-10); Lymphocytes 11 % (20-55); Segmented Neutrophils 83 % (50-85); Total Cells Counted 100
[2017-07-02 06:59] LABS: Platelet Estimate Decreased
[2017-07-02] MEDS ORDERED: CLOPIDOGREL 75 MG TABLET ONE (08:21)
[2017-07-02] MEDS ORDERED: PANTOPRAZOLE 40 MG TABLET PO ONE (08:21)
[2017-07-02] MEDS ORDERED: DILTIAZEM CD 120 MG CAPSULE PO ONE (08:21)
[2017-07-02] MEDS ORDERED: predniSONE 10 MG TABLET ONE (08:21)
[2017-07-02] MEDS ORDERED: FUROSEMIDE 20 MG TABLET ONE (08:21)
[2017-07-02] MEDS ORDERED: ASPIRIN CHEW 81 MG TABLET PO ONE (08:21)
[2017-07-02] MEDS ORDERED: POTASSIUM CHLORIDE 10 MEQ TABLET PO ONE (08:21)
[2017-07-02] MEDS: FUROSEMIDE 20 MG TABLET PO SCH ×2 (08:27→16:58)
[2017-07-02] MEDS: predniSONE 10 MG TABLET PO SCH ×2 (08:28→10:46)
[2017-07-02] MEDS: DILTIAZEM CD 240 MG CAPSULE PO SCH (08:28)
[2017-07-02] MEDS: CLOPIDOGREL 75 MG TABLET PO SCH ×2 (08:28→10:43)
[2017-07-02] MEDS: POTASSIUM CHLORIDE 10 MEQ TABLET PO SCH (08:28)
[2017-07-02] MEDS: PANTOPRAZOLE 40 MG TABLET PO SCH ×2 (08:29→10:44)
[2017-07-02] MEDS: ASPIRIN CHEW 81 MG TABLET PO SCH ×2 (08:29→10:45)
[2017-07-02] MEDS ORDERED: INSULIN LISPRO 100 UNIT/ML SUBCUT ONE ×2 (08:50→13:05)
[2017-07-02] MEDS: INSULIN LISPRO 100 UNIT/ML SUBCUT SCH ×4 (08:52→21:59)
[2017-07-02] MEDS ORDERED: ESCITALOPRAM 10 MG TABLET PO ONE (09:30)
[2017-07-02] MEDS: ESCITALOPRAM 10 MG TABLET PO SCH (10:46)
[2017-07-02] MEDS ORDERED: SOTALOL 80 MG TABLET ONE (10:50)
[2017-07-02] MEDS ORDERED: APIXABAN 5 MG TABLET ONE (10:50)
[2017-07-02] MEDS: APIXABAN 5 MG TABLET PO SCH (10:53)
[2017-07-02] MEDS: SOTALOL 80 MG TABLET PO SCH ×2 (10:54→21:55)
[2017-07-02] MEDS: NON-FORMULARY MEDICATION (Fluticasone/Vilanterol [Breo Ellipta 100-25 Mcg Inh] 1 PUFF) INH SCH (12:11)
[2017-07-02] MEDS ORDERED: INFLUENZA VIRUS VACCINE 0.5 ML SYRINGE IM ONE (14:40)
[2017-07-02] MEDS ORDERED: methylPREDNISolone SOD SUC 40 MG/1 ML VIAL IV SCH (18:30)
[2017-07-02] MEDS ORDERED: PIPERACILLIN/TAZOBACTAM 3,375 MG in SODIUM CHLORIDE 0.9% 100 ML IV SCH ×2 (18:30→19:30)
[2017-07-02] MEDS: PIPERACILLIN/TAZOBACTAM 3,375 MG in SODIUM CHLORIDE 0.9% 100 ML IV SCH (21:55)
[2017-07-02] MEDS: methylPREDNISolone SOD SUC 40 MG/1 ML VIAL IV SCH (21:56)
[2017-07-02] MEDS: ATORVASTATIN 40 MG TABLET PO SCH (21:56)
[2017-07-03] MEDS: ALBUTEROL/IPRATROPIUM 3 ML NEB RESP TX SCH ×4 (00:50→20:04)
[2017-07-03] MEDS: PIPERACILLIN/TAZOBACTAM 3,375 MG in SODIUM CHLORIDE 0.9% 100 ML IV SCH ×3 (04:58→21:14)
[2017-07-03 05:29] LABS: Hematocrit 28.3 VOL% (42.0-52.0); Hemoglobin 9.3 GM/DL (14.0-18.0); Immature Granulocytes Absolute 0.16 #; Lymphocytes # 0.3 10*3/uL (1.4-4.0); Lymphocytes % 7.3 % (21.2-54.2); Mean Corpuscular HGB Conc 32.9 GM/DL (32-36); Mean Corpuscular Hemoglobin 31 PG (27-34); Mean Corpuscular Volume 92.8 FL (87-102); Monocytes # 0.1 10*3/uL (0.11-0.8); Monocytes % 2.8 % (1.7-12.7); NRBC # 0.02 10*3/uL; Neutrophils # 3.4 10*3/uL (1.4-7.4); Neutrophils % 85.9 % (38.7-73.9); Platelet Count 66 T/CUMM (130-400); Red Blood Count 3.05 MC/CUMM (3.8-5.5); Red Cell Distribution Width 17.8 % (9.3-17.3)
[2017-07-03 06:00] LABS: Calcium 7.5 MG/DL (8.5-10.1); Magnesium 1.9 MG/DL (1.8-2.4); Osmolality,Calculated 296.1 MOS/KG (273-304); Potassium 3.6 MMOL/L (3.5-5.1)
[2017-07-03 06:55] LABS: Hypochromasia 1+; Platelet Estimate Decreased
[2017-07-03] MEDS ORDERED: LIDOCAINE 1% 20 ML VIAL ONE ×2 (07:58→09:18)
[2017-07-03] MEDS: DILTIAZEM CD 240 MG CAPSULE PO SCH (08:07)
[2017-07-03] MEDS: CLOPIDOGREL 75 MG TABLET PO SCH (08:07)
[2017-07-03] MEDS: ASPIRIN CHEW 81 MG TABLET PO SCH (08:08)
[2017-07-03] MEDS: POTASSIUM CHLORIDE 10 MEQ TABLET PO SCH (08:08)
[2017-07-03] MEDS: SOTALOL 80 MG TABLET PO SCH ×2 (08:08→21:15)
[2017-07-03] MEDS ORDERED: HYDROmorphone 2 MG/1 ML VIAL ONE (08:45)
[2017-07-03] MEDS ORDERED: MIDAZOLAM 2 MG/2 ML VIAL ONE ×2 (08:45→09:25)
[2017-07-03] MEDS ORDERED: VERAPAMIL 5 MG/2 ML VIAL ONE (08:56)
[2017-07-03] MEDS ORDERED: NITROGLYCERIN DRIP 50 MG/250 ML BOTTLE IV ONE (08:56)
[2017-07-03] MEDS ORDERED: ENOXAPARIN 60 MG/0.6 ML SYRINGE ONE (09:03)
[2017-07-03] MEDS ORDERED: LIDOCAINE 1%/EPI INJ 20 ML VIAL ONE (09:26)
[2017-07-03] MEDS ORDERED: TISSUE ADHESIVE 1 EACH APPLICATOR TOP ONE (09:30)
[2017-07-03] MEDS ORDERED: SODIUM CHLORIDE 0.45% 1,000 ML IV SCH (10:00)
[2017-07-03] MEDS: INSULIN LISPRO 100 UNIT/ML SUBCUT SCH ×4 (10:29→21:25)
[2017-07-03] MEDS: ESCITALOPRAM 10 MG TABLET PO SCH (10:41)
[2017-07-03] MEDS: PANTOPRAZOLE 40 MG TABLET PO SCH (10:41)
[2017-07-03] MEDS: methylPREDNISolone SOD SUC 40 MG/1 ML VIAL IV SCH ×2 (10:41→21:12)
[2017-07-03] MEDS: FUROSEMIDE 20 MG TABLET PO SCH (11:47)
[2017-07-03] MEDS: NON-FORMULARY MEDICATION (Fluticasone/Vilanterol [Breo Ellipta 100-25 Mcg Inh] 1 PUFF) INH SCH (13:02)
[2017-07-03] MEDS: FUROSEMIDE 40 MG/4 ML VIAL IV SCH (16:17)
[2017-07-03] MEDS: ALPRAZolam 0.25 MG TABLET PO PRN ×2 (16:36→21:15)
[2017-07-03] MEDS: ATORVASTATIN 40 MG TABLET PO SCH (21:15)
[2017-07-04] MEDS: ALBUTEROL/IPRATROPIUM 3 ML NEB RESP TX SCH ×4 (01:16→19:18)
[2017-07-04 03:12] LABS: Hematocrit 27.6 VOL% (42.0-52.0); Hemoglobin 9.2 GM/DL (14.0-18.0); Immature Granulocytes % 2.5 %; Lymphocytes # 0.3 10*3/uL (1.4-4.0); Lymphocytes % 7.5 % (21.2-54.2); Mean Corpuscular HGB Conc 33.3 GM/DL (32-36); Mean Corpuscular Hemoglobin 31 PG (27-34); Mean Corpuscular Volume 91.7 FL (87-102); Mean Platelet Volume 10.8 FL (9.6-12.0); Monocytes # 0.1 10*3/uL (0.11-0.8); Monocytes % 2.7 % (1.7-12.7); NRBC # 0.03 10*3/uL; Neutrophils # 3.5 10*3/uL (1.4-7.4); Neutrophils % 87.3 % (38.7-73.9); Red Blood Count 3.01 MC/CUMM (3.8-5.5); Red Cell Distribution Width 17.5 % (9.3-17.3)
[2017-07-04 03:16] LABS: Platelet Count 56 T/CUMM (130-400)
[2017-07-04 04:11] LABS: Calcium 7.8 MG/DL (8.5-10.1); Osmolality,Calculated 294.4 MOS/KG (273-304); Potassium 3.2 MMOL/L (3.5-5.1)
[2017-07-04] MEDS: PIPERACILLIN/TAZOBACTAM 3,375 MG in SODIUM CHLORIDE 0.9% 100 ML IV SCH ×3 (04:28→21:21)
[2017-07-04 05:41] LABS: Band Neutrophils 1 % (0-10); Hypochromasia 1+; Lymphocytes 7 % (20-55); Ovalocytes Slight; Platelet Estimate Decreased; Segmented Neutrophils 90 % (50-85); Total Cells Counted 100
[2017-07-04] MEDS: SOTALOL 80 MG TABLET PO SCH ×2 (08:39→21:21)
[2017-07-04] MEDS: ESCITALOPRAM 10 MG TABLET PO SCH (08:39)
[2017-07-04] MEDS: DILTIAZEM CD 240 MG CAPSULE PO SCH (08:39)
[2017-07-04] MEDS: CLOPIDOGREL 75 MG TABLET PO SCH (08:39)
[2017-07-04] MEDS: INSULIN LISPRO 100 UNIT/ML SUBCUT SCH ×4 (08:40→21:22)
[2017-07-04] MEDS: methylPREDNISolone SOD SUC 40 MG/1 ML VIAL IV SCH ×2 (08:40→21:26)
[2017-07-04] MEDS: ASPIRIN CHEW 81 MG TABLET PO SCH (08:40)
[2017-07-04] MEDS: FUROSEMIDE 40 MG/4 ML VIAL IV SCH (08:40)
[2017-07-04] MEDS: POTASSIUM CHLORIDE 10 MEQ TABLET PO SCH (08:40)
[2017-07-04] MEDS: PANTOPRAZOLE 40 MG TABLET PO SCH (08:40)
[2017-07-04] MEDS ORDERED: POTASSIUM CHLORIDE 20 MEQ TABLET PO ONE (11:44)
[2017-07-04] MEDS: RANOLAZINE 500 MG TABLET PO SCH ×2 (12:37→21:22)
[2017-07-04] MEDS: FUROSEMIDE 40 MG TABLET PO SCH (21:22)
[2017-07-04] MEDS: ATORVASTATIN 40 MG TABLET PO SCH (21:26)
[2017-07-04] MEDS: ALPRAZolam 0.25 MG TABLET PO PRN (21:36)
[2017-07-05] MEDS: ALBUTEROL/IPRATROPIUM 3 ML NEB RESP TX SCH ×3 (00:36→14:37)
[2017-07-05] MEDS: PIPERACILLIN/TAZOBACTAM 3,375 MG in SODIUM CHLORIDE 0.9% 100 ML IV SCH ×2 (03:36→12:57)
[2017-07-05] MEDS ORDERED: ISOSORBIDE MONONITRATE 30 MG TABLET PO SCH (09:00)
[2017-07-05] MEDS ORDERED: FUROSEMIDE 40 MG TABLET PO SCH (09:00)
[2017-07-05] MEDS: INSULIN LISPRO 100 UNIT/ML SUBCUT SCH ×2 (09:03→12:56)
[2017-07-05] MEDS: CLOPIDOGREL 75 MG TABLET PO SCH (09:04)
[2017-07-05] MEDS: methylPREDNISolone SOD SUC 40 MG/1 ML VIAL IV SCH (09:04)
[2017-07-05] MEDS: FUROSEMIDE 40 MG TABLET PO SCH (09:04)
[2017-07-05] MEDS: SOTALOL 80 MG TABLET PO SCH (09:05)
[2017-07-05] MEDS: RANOLAZINE 500 MG TABLET PO SCH (09:05)
[2017-07-05] MEDS: ASPIRIN CHEW 81 MG TABLET PO SCH (09:05)
[2017-07-05] MEDS: POTASSIUM CHLORIDE 10 MEQ TABLET PO SCH (09:05)
[2017-07-05] MEDS: PANTOPRAZOLE 40 MG TABLET PO SCH (09:05)
[2017-07-05] MEDS: DILTIAZEM CD 240 MG CAPSULE PO SCH (09:05)
[2017-07-05] MEDS: ESCITALOPRAM 10 MG TABLET PO SCH (09:05)
[2017-07-05 15:25] VITALS: BP 139/86
[2017-07-05] MEDS: ALPRAZolam 0.25 MG TABLET PO PRN (16:30)
== END 2017-07-05 17:01 | disposition home or self-care (01) | DRG 260 ==
LOC: EDUNIT# → EDBD → N.ED 13:03 → N.EDINP 15:07 → SUATTDRO 15:07 → N.TELEN 15:08 → N.TELES 15:08
PROVIDERS: ADMIT Hospitalist; ATTEND Internal Medicine
PROC: CLCCHCL (ICD-10-PCS; 2017-07-03 09:45)

== ENCOUNTER 2017-12-31 14:18 | Inpatient (IN) ==
[2017-12-31 15:33] LABS: Basophils % 0.4 % (0.0-0.8); Eosinophils % 0.6 % (0.00-10.9); Hematocrit 35.9 VOL% (42.0-52.0); Hemoglobin 11.2 GM/DL (14.0-18.0); Immature Granulocytes % 1.7 %; Immature Granulocytes Absolute 0.09 #; Lymphocytes # 0.6 10*3/uL (1.4-4.0); Lymphocytes % 11.6 % (21.2-54.2); Mean Corpuscular HGB Conc 31.2 GM/DL (32-36); Mean Corpuscular Hemoglobin 26 PG (27-34); Mean Corpuscular Volume 84.3 FL (87-102); Monocytes # 0.7 10*3/uL (0.11-0.8); Monocytes % 12.7 % (1.7-12.7); Neutrophils # 3.9 10*3/uL (1.4-7.4); Platelet Count 105 T/CUMM (130-400); Red Blood Count 4.26 MC/CUMM (3.8-5.5); Red Cell Distribution Width 15.4 % (9.3-17.3); White Blood Count 5.3 T/CUMM (4-12)
[2017-12-31 16:09] LABS: Bilirubin,Total 0.5 MG/DL (0.2-1.0); Calcium 8.4 MG/DL (8.5-10.1); Osmolality,Calculated 295.1 MOS/KG (273-304); Potassium 3.7 MMOL/L (3.5-5.1); Total Protein 6.3 G/DL (6.4-8.3)
[2017-12-31] MEDS ORDERED: PANTOPRAZOLE 40 MG VIAL IV STA (16:34)
[2017-12-31] MEDS ORDERED: ONDANSETRON 4 MG/2 ML VIAL IV STA (16:34)
[2017-12-31] MEDS ORDERED: DICYCLOMINE 20 MG/2 ML AMP IM ONE ×2 (16:35→16:44)
[2017-12-31] MEDS ORDERED: PANTOPRAZOLE 40 MG VIAL IV ONE (16:39)
[2017-12-31] MEDS ORDERED: ONDANSETRON 4 MG/2 ML VIAL ONE (16:39)
[2017-12-31 17:09] LABS: Troponin I Only < 0.015 NG/ML (0.00-0.045)
[2017-12-31] MEDS ORDERED: ALBUTEROL/IPRATROPIUM 3 ML NEB RESP TX STA (17:31)
[2017-12-31] MEDS ORDERED: LEVOFLOXACIN INJ 750 MG in PREMIX 1 EACH IV STA (17:31)
[2017-12-31] MEDS ORDERED: LEVOFLOXACIN INJ 150 ML IV ONE (17:44)
[2017-12-31] MEDS ORDERED: ONDANSETRON 4 MG/2 ML VIAL IV PRN (20:13)
[2017-12-31] MEDS ORDERED: LEVOFLOXACIN INJ 750 MG in PREMIX 1 EACH IV SCH (20:30)
[2017-12-31] MEDS: methylPREDNISolone SOD SUC 125 MG/2 ML VIAL IV SCH (21:40)
[2017-12-31] MEDS: ACETAMINOPHEN 325 MG TABLET PO PRN (21:50)
[2018-01-01] MEDS: ALBUTEROL 1.25 MG/3 ML NEB RESP TX SCH ×5 (00:51→15:00)
[2018-01-01 05:08] LABS: Basophils % 0.3 % (0.0-0.8); Hematocrit 31.1 VOL% (42.0-52.0); Hemoglobin 9.6 GM/DL (14.0-18.0); Immature Granulocytes Absolute 0.14 #; Lymphocytes # 0.3 10*3/uL (1.4-4.0); Mean Corpuscular HGB Conc 30.9 GM/DL (32-36); Mean Corpuscular Hemoglobin 26 PG (27-34); Mean Corpuscular Volume 84.1 FL (87-102); Mean Platelet Volume 10.5 FL (9.6-12.0); Monocytes # 0.1 10*3/uL (0.11-0.8); Monocytes % 2.8 % (1.7-12.7); Neutrophils % 83.9 % (38.7-73.9); Platelet Count 89 T/CUMM (130-400); Red Cell Distribution Width 15.2 % (9.3-17.3); White Blood Count 3.5 T/CUMM (4-12)
[2018-01-01 05:37] LABS: Calcium 7.9 MG/DL (8.5-10.1); Osmolality,Calculated 294.4 MOS/KG (273-304); Potassium 4.1 MMOL/L (3.5-5.1)
[2018-01-01 05:41] LABS: Band Neutrophils 4 % (0-10); Hypochromasia 1+; Lymphocytes 12 % (20-55); Nucleated Red Blood Cells 1 (0-5); Segmented Neutrophils 82 % (50-85); Total Cells Counted 100
[2018-01-01 05:42] LABS: Microcytosis Slight; Ovalocytes Slight; Platelet Estimate Decreased
[2018-01-01] MEDS: PANTOPRAZOLE 40 MG TABLET PO SCH (08:25)
[2018-01-01] MEDS: methylPREDNISolone SOD SUC 125 MG/2 ML VIAL IV SCH (08:29)
[2018-01-01] MEDS: predniSONE 10 MG TABLET PO SCH (13:22)
[2018-01-01] MEDS: SOTALOL 80 MG TABLET PO SCH ×2 (13:22→21:16)
[2018-01-01] MEDS ORDERED: ALBUTEROL 1.25 MG/3 ML NEB RESP TX PRN (18:56)
[2018-01-01] MEDS: ALBUTEROL/IPRATROPIUM 3 ML NEB RESP TX SCH (19:43)
[2018-01-01] MEDS: ALPRAZolam 0.5 MG TABLET PO PRN (21:16)
[2018-01-01] MEDS: LEVOFLOXACIN INJ 750 MG in PREMIX 1 EACH IV SCH (21:16)
[2018-01-01] MEDS: ATORVASTATIN 40 MG TABLET PO SCH (21:16)
[2018-01-02 06:07] LABS: Albumin 2.5 G/DL (3.4-5.0); Bilirubin,Direct 0.14 MG/DL (0.0-0.20); Bilirubin,Indirect 0.8 MG/DL (0.0-1.0); Bilirubin,Total 0.9 MG/DL (0.2-1.0); Total Protein 5.5 G/DL (6.4-8.3)
[2018-01-02] MEDS: ALBUTEROL/IPRATROPIUM 3 ML NEB RESP TX SCH ×2 (07:56→19:24)
[2018-01-02] MEDS: SOTALOL 80 MG TABLET PO SCH ×2 (08:30→20:33)
[2018-01-02] MEDS: ASPIRIN CHEW 81 MG TABLET PO SCH (08:30)
[2018-01-02] MEDS: ISOSORBIDE MONONITRATE 30 MG TABLET PO SCH (08:30)
[2018-01-02] MEDS: SPIRONOLACTONE 25 MG TABLET PO SCH (08:30)
[2018-01-02] MEDS: ESCITALOPRAM 10 MG TABLET PO SCH (08:30)
[2018-01-02] MEDS: CLOPIDOGREL 75 MG TABLET PO SCH (08:30)
[2018-01-02] MEDS: PANTOPRAZOLE 40 MG TABLET PO SCH ×2 (08:30→08:34)
[2018-01-02] MEDS: FEBUXOSTAT 80 MG TABLET PO SCH (08:30)
[2018-01-02] MEDS: DILTIAZEM CD 180 MG CAPSULE PO SCH (08:30)
[2018-01-02] MEDS: predniSONE 10 MG TABLET PO SCH (08:31)
[2018-01-02] MEDS: LEVOFLOXACIN INJ 750 MG in PREMIX 1 EACH IV SCH (20:33)
[2018-01-02] MEDS: ATORVASTATIN 40 MG TABLET PO SCH (20:33)
[2018-01-02] MEDS: ALPRAZolam 0.5 MG TABLET PO PRN (20:36)
[2018-01-03] MEDS: ALBUTEROL/IPRATROPIUM 3 ML NEB RESP TX SCH ×2 (07:20→20:05)
[2018-01-03 08:13] LABS: Basophils % 0.4 % (0.0-0.8); Eosinophils % 0.4 % (0.00-10.9); Hematocrit 33.8 VOL% (42.0-52.0); Hemoglobin 10.8 GM/DL (14.0-18.0); Immature Granulocytes % 8.9 %; Immature Granulocytes Absolute 0.45 #; Lymphocytes # 0.6 10*3/uL (1.4-4.0); Lymphocytes % 12.3 % (21.2-54.2); Mean Corpuscular Hemoglobin 26 PG (27-34); Mean Corpuscular Volume 82.2 FL (87-102); Monocytes # 0.4 10*3/uL (0.11-0.8); Neutrophils # 3.6 10*3/uL (1.4-7.4); Platelet Count 104 T/CUMM (130-400); Red Blood Count 4.11 MC/CUMM (3.8-5.5); Red Cell Distribution Width 14.7 % (9.3-17.3)
[2018-01-03] MEDS: SOTALOL 80 MG TABLET PO SCH ×2 (08:22→21:21)
[2018-01-03] MEDS: DILTIAZEM CD 180 MG CAPSULE PO SCH (08:22)
[2018-01-03] MEDS: PANTOPRAZOLE 40 MG TABLET PO SCH ×2 (08:22→08:26)
[2018-01-03] MEDS: ESCITALOPRAM 10 MG TABLET PO SCH (08:22)
[2018-01-03] MEDS: ISOSORBIDE MONONITRATE 30 MG TABLET PO SCH (08:23)
[2018-01-03] MEDS: predniSONE 10 MG TABLET PO SCH (08:23)
[2018-01-03] MEDS: SPIRONOLACTONE 25 MG TABLET PO SCH (08:23)
[2018-01-03] MEDS: CLOPIDOGREL 75 MG TABLET PO SCH (08:23)
[2018-01-03] MEDS: FEBUXOSTAT 80 MG TABLET PO SCH (08:23)
[2018-01-03] MEDS: ASPIRIN CHEW 81 MG TABLET PO SCH (08:23)
[2018-01-03 11:22] LABS: Hypochromasia 2+; Lymphocytes 9 % (20-55); Myelocytes 2 %; Segmented Neutrophils 72 % (50-85); Total Cells Counted 100
[2018-01-03 11:23] LABS: Microcytosis 1+; Platelet Estimate Decreased
[2018-01-03] MEDS: ACETAMINOPHEN 325 MG TABLET PO PRN (16:37)
[2018-01-03] MEDS: LEVOFLOXACIN INJ 750 MG in PREMIX 1 EACH IV SCH (21:21)
[2018-01-03] MEDS: DOCUSATE SODIUM 100 MG CAPSULE PO PRN (21:21)
[2018-01-03] MEDS: ALPRAZolam 0.5 MG TABLET PO PRN (21:21)
[2018-01-03] MEDS: ATORVASTATIN 40 MG TABLET PO SCH (21:25)
[2018-01-04] MEDS: ALBUTEROL/IPRATROPIUM 3 ML NEB RESP TX SCH ×2 (08:29→19:41)
[2018-01-04] MEDS: ESCITALOPRAM 10 MG TABLET PO SCH (09:48)
[2018-01-04] MEDS: CLOPIDOGREL 75 MG TABLET PO SCH (09:48)
[2018-01-04] MEDS: predniSONE 10 MG TABLET PO SCH (09:48)
[2018-01-04] MEDS: DOCUSATE SODIUM 100 MG CAPSULE PO PRN (09:48)
[2018-01-04] MEDS: SPIRONOLACTONE 25 MG TABLET PO SCH (09:48)
[2018-01-04] MEDS: PANTOPRAZOLE 40 MG TABLET PO SCH ×2 (09:48→09:50)
[2018-01-04] MEDS: ASPIRIN CHEW 81 MG TABLET PO SCH (09:48)
[2018-01-04] MEDS: ISOSORBIDE MONONITRATE 30 MG TABLET PO SCH (09:49)
[2018-01-04] MEDS: SOTALOL 80 MG TABLET PO SCH ×3 (09:49→20:36)
[2018-01-04] MEDS: FEBUXOSTAT 80 MG TABLET PO SCH (09:49)
[2018-01-04] MEDS: DILTIAZEM CD 180 MG CAPSULE PO SCH (09:50)
[2018-01-04] MEDS ORDERED: GLUCAGON 1 MG VIAL IM PRN (10:09)
[2018-01-04] MEDS ORDERED: DEXTROSE 50% 25 GM/50 ML VIAL IV PRN (10:09)
[2018-01-04] MEDS: INSULIN LISPRO 100 UNIT/ML SUBCUT SCH ×3 (12:29→20:18)
[2018-01-04] MEDS ORDERED: ALUMINUM/MAGNES/SIMETH MAX STR 30 ML UDCUP PO PRN (13:31)
[2018-01-04] MEDS: ATORVASTATIN 40 MG TABLET PO SCH ×2 (20:18→20:36)
[2018-01-04] MEDS: LEVOFLOXACIN INJ 750 MG in PREMIX 1 EACH IV SCH (20:18)
[2018-01-04] MEDS: ALPRAZolam 0.5 MG TABLET PO PRN (20:36)
[2018-01-05 06:57] LABS: Basophils # 0.1 10*3/uL (0.0-0.2); Basophils % 0.9 % (0.0-0.8); Eosinophils # 0.1 10*3/uL (0.0-0.87); Eosinophils % 0.7 % (0.00-10.9); Hematocrit 36.4 VOL% (42.0-52.0); Hemoglobin 11.7 GM/DL (14.0-18.0); Immature Granulocytes % 19.7 %; Immature Granulocytes Absolute 1.35 #; Lymphocytes # 0.9 10*3/uL (1.4-4.0); Lymphocytes % 12.8 % (21.2-54.2); Mean Corpuscular HGB Conc 32.1 GM/DL (32-36); Mean Corpuscular Hemoglobin 26 PG (27-34); Mean Corpuscular Volume 81.3 FL (87-102); Mean Platelet Volume 9.6 FL (9.6-12.0); Monocytes # 0.5 10*3/uL (0.11-0.8); Monocytes % 7.7 % (1.7-12.7); NRBC # 0.03 10*3/uL; Neutrophils % 58.2 % (38.7-73.9); Platelet Count 102 T/CUMM (130-400); Red Blood Count 4.48 MC/CUMM (3.8-5.5); Red Cell Distribution Width 14.8 % (9.3-17.3); White Blood Count 6.9 T/CUMM (4-12)
[2018-01-05 07:19] LABS: Albumin 2.7 G/DL (3.4-5.0); Bilirubin,Total 0.5 MG/DL (0.2-1.0); Calcium 8.5 MG/DL (8.5-10.1); Osmolality,Calculated 287.3 MOS/KG (273-304); Potassium 4.1 MMOL/L (3.5-5.1); Total Protein 5.8 G/DL (6.4-8.3)
[2018-01-05 07:25] LABS: Band Neutrophils 3 % (0-10); Hypochromasia 1+; Lymphocytes 25 % (20-55); Ovalocytes Slight; Platelet Estimate Decreased; Segmented Neutrophils 65 % (50-85); Total Cells Counted 100
[2018-01-05 07:26] LABS: Giant Platelets Few; Microcytosis 1+
[2018-01-05] MEDS: ALBUTEROL/IPRATROPIUM 3 ML NEB RESP TX SCH (07:45)
[2018-01-05] MEDS: INSULIN LISPRO 100 UNIT/ML SUBCUT SCH ×2 (07:59→11:47)
[2018-01-05] MEDS: SOTALOL 80 MG TABLET PO SCH (09:20)
[2018-01-05] MEDS: DILTIAZEM CD 180 MG CAPSULE PO SCH (09:20)
[2018-01-05] MEDS: PANTOPRAZOLE 40 MG TABLET PO SCH ×2 (09:20→09:23)
[2018-01-05] MEDS: SPIRONOLACTONE 25 MG TABLET PO SCH (09:22)
[2018-01-05] MEDS: predniSONE 10 MG TABLET PO SCH (09:22)
[2018-01-05] MEDS: ASPIRIN CHEW 81 MG TABLET PO SCH (09:22)
[2018-01-05] MEDS: FEBUXOSTAT 80 MG TABLET PO SCH (09:22)
[2018-01-05] MEDS: ISOSORBIDE MONONITRATE 30 MG TABLET PO SCH (09:22)
[2018-01-05] MEDS: ESCITALOPRAM 10 MG TABLET PO SCH (09:22)
[2018-01-05 11:53] VITALS: BP 130/80
== END 2018-01-05 15:40 | disposition home or self-care (01) | DRG 194 ==
LOC: N.EDINP 14:18 → N.ED 14:18 → SUATTDRO 20:13 → N.EDINP 21:12 → N.5E 21:28 → SUATTDRO 01-01 09:50
PROVIDERS: ADMIT Internal Medicine; ATTEND Internal Medicine

== ENCOUNTER 2018-10-22 19:32 | Observation (INO) ==
[2018-10-22 20:24] LABS: Basophils % 0.1 % (0.0-0.8); Eosinophils % 0.2 % (0.00-10.9); Hematocrit 37.4 VOL% (42.0-52.0); Hemoglobin 11.2 GM/DL (14.0-18.0); Immature Granulocytes % 2.1 %; Immature Granulocytes Absolute 0.25 #; Lymphocytes # 1.1 10*3/uL (1.4-4.0); Lymphocytes % 9.4 % (21.2-54.2); Mean Corpuscular HGB Conc 29.9 GM/DL (32-36); Mean Corpuscular Hemoglobin 24 PG (27-34); Mean Corpuscular Volume 81.3 FL (87-102); Mean Platelet Volume 10.3 FL (9.6-12.0); Monocytes # 1.3 10*3/uL (0.11-0.8); NRBC # 0.02 10*3/uL; Neutrophils # 9.3 10*3/uL (1.4-7.4); Neutrophils % 77.2 % (38.7-73.9); Platelet Count 110 T/CUMM (130-400)
[2018-10-22 20:25] LABS: PT Patient Result 11.2 SECS
[2018-10-22 20:32] LABS: ABG Base Excess 1.2 MMOL/L (-2.5-2.5); ABG HCO3 25.4 MMOL/L (20-26); ABG Oxygen Saturation 94.9 % (95-100); ABG PO2 74.2 MM HG (80-95); ABG TCO2 22.4 MMOL/L (23-27); Allen Test Positive
[2018-10-22 20:48] LABS: Albumin 3.1 G/DL (3.4-5.0); Bilirubin,Total 0.6 MG/DL (0.2-1.0); Calcium 8.2 MG/DL (8.5-10.1); Osmolality,Calculated 285.5 MOS/KG (273-304); Potassium 4.5 MMOL/L (3.5-5.1); Total Protein 6.8 G/DL (6.4-8.3)
[2018-10-22] MEDS ORDERED: ACETAMINOPHEN 500 MG TABLET PO STA (21:12)
[2018-10-22] MEDS ORDERED: ACETAMINOPHEN 500 MG TABLET ONE (21:13)
[2018-10-22] MEDS ORDERED: BISACODYL 5 MG TABLET PO PRN (23:51)
[2018-10-22] MEDS ORDERED: ONDANSETRON 4 MG/2 ML VIAL IV PRN (23:51)
[2018-10-22] MEDS ORDERED: MORPHINE 4 MG/1 ML VIAL IV PRN (23:51)
[2018-10-22] MEDS ORDERED: NICOTINE 21 MG/24 HR PATCH TRANSDERM PRN (23:51)
[2018-10-22] MEDS ORDERED: diphenhydrAMINE CAP 25 MG CAPSULE PO PRN (23:51)
[2018-10-22] MEDS ORDERED: guaiFENesin/DM ER 600-30 MG TABLET PO PRN (23:51)
[2018-10-23 00:31] LABS: Risk Ratio 2.29
[2018-10-23] MEDS ORDERED: AZITHROMYCIN INJ 500 MG in SODIUM CHLORIDE 0.9% 250 ML IV SCH (01:00)
[2018-10-23] MEDS ORDERED: INFLUENZA VIRUS VACCINE 0.5 ML SYRINGE IM ONE (01:25)
[2018-10-23] MEDS: cefTRIAXone 1,000 MG in SYRINGE 1 EACH IV SCH ×3 (02:02→22:46)
[2018-10-23 03:16] LABS: Basophils % 0.2 % (0.0-0.8); Eosinophils % 0.5 % (0.00-10.9); Hematocrit 32.5 VOL% (42.0-52.0); Hemoglobin 9.7 GM/DL (14.0-18.0); Immature Granulocytes % 2.4 %; Immature Granulocytes Absolute 0.21 #; Mean Corpuscular HGB Conc 29.8 GM/DL (32-36); Mean Corpuscular Hemoglobin 24 PG (27-34); Mean Corpuscular Volume 80.4 FL (87-102); Mean Platelet Volume 10.5 FL (9.6-12.0); Monocytes # 1.1 10*3/uL (0.11-0.8); Monocytes % 12.1 % (1.7-12.7); Neutrophils # 6.4 10*3/uL (1.4-7.4); Neutrophils % 73.8 % (38.7-73.9); Platelet Count 91 T/CUMM (130-400); Red Blood Count 4.04 MC/CUMM (3.8-5.5); Red Cell Distribution Width 20.7 % (9.3-17.3); White Blood Count 8.7 T/CUMM (4-12)
[2018-10-23 03:24] LABS: Albumin 2.6 G/DL (3.4-5.0); Bilirubin,Total 0.4 MG/DL (0.2-1.0); Osmolality,Calculated 285.5 MOS/KG (273-304); Total Protein 5.9 G/DL (6.4-8.3)
[2018-10-23] MEDS: ALBUTEROL/IPRATROPIUM 3 ML NEB RESP TX SCH ×6 (04:06→23:15)
[2018-10-23] MEDS: PANTOPRAZOLE 40 MG TABLET PO SCH (08:52)
[2018-10-23] MEDS: GENTAMICIN 0.3% OPH OINT 3.5 GM TUBE RIGHT EYE SCH ×3 (08:53→21:09)
[2018-10-23] MEDS: FUROSEMIDE 40 MG/4 ML VIAL IV SCH ×2 (08:53→16:09)
[2018-10-23] MEDS: ACETAMINOPHEN 325 MG TABLET PO PRN ×2 (08:58→20:18)
[2018-10-23] MEDS ORDERED: ASPIRIN CHEW 81 MG TABLET PO SCH (09:00)
[2018-10-23] MEDS ORDERED: CLOPIDOGREL 75 MG TABLET PO SCH (09:00)
[2018-10-23] MEDS ORDERED: ALUMINUM/MAGNES/SIMETH MAX STR 30 ML UDCUP PO PRN (11:27)
[2018-10-23] MEDS: CHOLESTYRAMINE 4 GM PACK PO SCH ×2 (12:13→20:28)
[2018-10-23] MEDS ORDERED: methylPREDNISolone SOD SUC 40 MG/1 ML VIAL IV ONE (17:37)
[2018-10-23] MEDS ORDERED: ALPRAZolam 0.25 MG TABLET PO ONE (17:40)
[2018-10-23 18:06] LABS: ABG Base Excess 2.1 MMOL/L (-2.5-2.5); ABG HCO3 25.4 MMOL/L (20-26); ABG Oxygen Saturation 99.1 % (95-100); ABG PH 7.479 (7.35-7.45); ABG PO2 224.1 MM HG (80-95); ABG TCO2 26.5 MMOL/L (23-27)
[2018-10-23] MEDS: ATORVASTATIN 40 MG TABLET PO SCH (20:18)
[2018-10-23] MEDS: RANOLAZINE 500 MG TABLET PO SCH (20:18)
[2018-10-23] MEDS: SOTALOL 80 MG TABLET PO SCH (20:18)
[2018-10-23] MEDS: ALPRAZolam 0.25 MG TABLET PO PRN (20:19)
[2018-10-23] MEDS: VANCOMYCIN INJ 1,000 MG in SODIUM CHLORIDE 0.9% 250 ML IV SCH (21:08)
[2018-10-24] MEDS: ALBUTEROL/IPRATROPIUM 3 ML NEB RESP TX SCH ×6 (02:29→23:58)
[2018-10-24 04:56] LABS: Hematocrit 31.5 VOL% (42.0-52.0); Hemoglobin 9.6 GM/DL (14.0-18.0); Immature Granulocytes % 3.7 %; Immature Granulocytes Absolute 0.23 #; Lymphocytes # 0.6 10*3/uL (1.4-4.0); Lymphocytes % 9.5 % (21.2-54.2); Mean Corpuscular HGB Conc 30.5 GM/DL (32-36); Mean Corpuscular Hemoglobin 25 PG (27-34); Mean Corpuscular Volume 81.6 FL (87-102); Monocytes # 0.2 10*3/uL (0.11-0.8); Monocytes % 3.2 % (1.7-12.7); Neutrophils # 5.2 10*3/uL (1.4-7.4); Neutrophils % 83.6 % (38.7-73.9); Red Blood Count 3.86 MC/CUMM (3.8-5.5); White Blood Count 6.2 T/CUMM (4-12)
[2018-10-24 05:08] LABS: Platelet Count 90 T/CUMM (130-400)
[2018-10-24 05:18] LABS: Calcium 8.3 MG/DL (8.5-10.1); Osmolality,Calculated 289.7 MOS/KG (273-304); Potassium 4.7 MMOL/L (3.5-5.1)
[2018-10-24 05:20] LABS: Band Neutrophils 1 % (0-10); Hypochromasia 1+; Lymphocytes 7 % (20-55); Platelet Estimate Decreased; Segmented Neutrophils 91 % (50-85); Total Cells Counted 100
[2018-10-24 05:21] LABS: Ovalocytes Slight
[2018-10-24] MEDS ORDERED: FUROSEMIDE 40 MG TABLET PO SCH (09:00)
[2018-10-24] MEDS: VANCOMYCIN INJ 1,000 MG in SODIUM CHLORIDE 0.9% 250 ML IV SCH ×2 (09:48→20:43)
[2018-10-24] MEDS: GENTAMICIN 0.3% OPH OINT 3.5 GM TUBE RIGHT EYE SCH ×3 (09:48→20:43)
[2018-10-24] MEDS: CHOLESTYRAMINE 4 GM PACK PO SCH ×2 (09:49→20:43)
[2018-10-24] MEDS: RANOLAZINE 500 MG TABLET PO SCH ×2 (09:49→20:42)
[2018-10-24] MEDS: DILTIAZEM CD 180 MG CAPSULE PO SCH (09:50)
[2018-10-24] MEDS: SOTALOL 80 MG TABLET PO SCH ×2 (09:50→20:42)
[2018-10-24] MEDS: ASPIRIN CHEW 81 MG TABLET PO SCH (09:51)
[2018-10-24] MEDS: SPIRONOLACTONE 25 MG TABLET PO SCH (09:51)
[2018-10-24] MEDS: PANTOPRAZOLE 40 MG TABLET PO SCH (09:52)
[2018-10-24] MEDS: CLOPIDOGREL 75 MG TABLET PO SCH (09:52)
[2018-10-24 10:35] LABS: Apearance,Urine CLEAR (Clear); Bilirubin,Urine Negative (Negative); Blood, Urine Negative (Negative); Glucose,Urine (UA) >=500 mg/dL (Negative); Hyaline Casts,Urine 1 /LPF (0-3); Ketones,Urine Negative (Negative); Mucus,Urine Occasional /LPF (Occasional); Nitrite,Urine Negative (Negative); Protein,Urine Negative; RBC,Urine <1 /HPF (0-4); Urine Color Yellow (Yellow); Urine Specific Gravity 1.018 (1.001-1.035); Urine Urobilinogen < 2.0 EU/DL (0.2-1.0); WBC,Urine 1 /HPF (0-6)
[2018-10-24] MEDS: cefTRIAXone 1,000 MG in SYRINGE 1 EACH IV SCH ×2 (12:20→22:54)
[2018-10-24] MEDS: ATORVASTATIN 40 MG TABLET PO SCH (20:42)
[2018-10-24] MEDS: ALPRAZolam 0.25 MG TABLET PO PRN (20:53)
[2018-10-25] MEDS: ALBUTEROL/IPRATROPIUM 3 ML NEB RESP TX SCH ×3 (03:45→10:27)
[2018-10-25 05:03] LABS: Calcium 8.1 MG/DL (8.5-10.1); Osmolality,Calculated 292.4 MOS/KG (273-304); Potassium 4.2 MMOL/L (3.5-5.1)
[2018-10-25 05:11] LABS: Basophils % 0.3 % (0.0-0.8); Eosinophils # 0.1 10*3/uL (0.0-0.87); Eosinophils % 0.9 % (0.00-10.9); Hematocrit 30.5 VOL% (42.0-52.0); Hemoglobin 9.1 GM/DL (14.0-18.0); Immature Granulocytes % 3.4 %; Immature Granulocytes Absolute 0.23 #; Lymphocytes # 0.6 10*3/uL (1.4-4.0); Lymphocytes % 9.1 % (21.2-54.2); Mean Corpuscular HGB Conc 29.8 GM/DL (32-36); Mean Corpuscular Hemoglobin 25 PG (27-34); Mean Corpuscular Volume 82.2 FL (87-102); Mean Platelet Volume 10.8 FL (9.6-12.0); Monocytes # 0.5 10*3/uL (0.11-0.8); Monocytes % 7.9 % (1.7-12.7); Neutrophils # 5.4 10*3/uL (1.4-7.4); Neutrophils % 78.4 % (38.7-73.9); Platelet Count 96 T/CUMM (130-400); Red Blood Count 3.71 MC/CUMM (3.8-5.5); White Blood Count 6.8 T/CUMM (4-12)
[2018-10-25 05:49] LABS: Anisocytosis 2+; Macrocytosis 1+; Microcytosis 1+; Platelet Estimate Decreased; Polychromasia Few
[2018-10-25] MEDS: SOTALOL 80 MG TABLET PO SCH (09:30)
[2018-10-25] MEDS: CLOPIDOGREL 75 MG TABLET PO SCH (09:30)
[2018-10-25] MEDS: DILTIAZEM CD 180 MG CAPSULE PO SCH (09:30)
[2018-10-25] MEDS: RANOLAZINE 500 MG TABLET PO SCH (09:31)
[2018-10-25] MEDS: PANTOPRAZOLE 40 MG TABLET PO SCH (09:31)
[2018-10-25] MEDS: ASPIRIN CHEW 81 MG TABLET PO SCH (09:31)
[2018-10-25] MEDS: SPIRONOLACTONE 25 MG TABLET PO SCH (09:31)
[2018-10-25] MEDS: CHOLESTYRAMINE 4 GM PACK PO SCH (09:32)
[2018-10-25] MEDS: VANCOMYCIN INJ 1,000 MG in SODIUM CHLORIDE 0.9% 250 ML IV SCH (09:32)
[2018-10-25] MEDS: GENTAMICIN 0.3% OPH OINT 3.5 GM TUBE RIGHT EYE SCH (09:32)
[2018-10-25 11:47] VITALS: BP 123/76
[2018-10-25] MEDS: cefTRIAXone 1,000 MG in SYRINGE 1 EACH IV SCH (12:07)
[2018-10-26] MEDS ORDERED: FUROSEMIDE 20 MG TABLET PO SCH (09:00)
== END 2018-10-25 13:10 | disposition home or self-care (01) ==
LOC: EDUNIT# → EDBD → N.EDINP 19:32 → N.ED 19:32 → SUATTDRO 23:51 → N.4E 10-23 00:35
PROVIDERS: ADMIT Internal Medicine Geriatric Medicine; ATTEND Internal Medicine